=== PATIENT | male | born 1950 | race Caucasian/White ===

== ENCOUNTER 2020-10-14 11:15 | Inpatient (IN) ==
[2020-10-14] MEDS ORDERED: SODIUM CHLORIDE 0.9% 1000ML 500 ML IV ONE (12:28)
--- NOTE | 2020-10-14 12:37 | Emergency Department Note ---
History of Present Illness General Chief complaint: Weakness Stated complaint: SOB Time Seen by Provider: 10/14/20 12:10 Source: patient History of Present Illness Provider complaint: Weakness and shortness of breath Onset (ago): month(s) Location: chest, upper extremity and lower extremity Severity: severe Pain Consistency: + constant (Now constant) and + intermittent Maximum Pain Intensity: 0 Quality: + other (Short of breath) Relieved By: + rest Exacerbated By: + other (Any slight exertion) Associated symptoms: + nausea/vomiting (After taking doxycycline) and + shortness of breath; no chest pain, no cough and no fever/chills 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 The patient states he normally walks 4 miles a day but starting in February of last year he had to take brief breaks while he was walking. Initially the brace for less than a minute but progressively became longer. He states in August his symptoms got worse and he thought that it was due to allergies. He was recently placed on doxycycline by an urgent care center but the doxycycline made him throw up and so he stopped taking it. He has been having diarrhea for the past 2 days if he eats or drinks anything so he has not been eating or drinking anything in the past 2 days. He states that 2 weeks ago his dyspnea got extremely worse. Just walking to the mailbox made him extremely winded and he stated that he felt like his muscles in his legs were building up with lactic acid. He denies any swelling to the legs or any history of PE. He is concerned he has amyloidosis of the heart as his sister had it. He denies any type of chest discomfort or pain. He has had no cough or cold symptoms, fever, abdominal pain or black or bloody stools. Once his hemoglobin came back later I asked him again and he stated that his stools are dark but they have been for years and he attributed it to his diet. He does state that 2 days ago he was extremely nauseated and thinks he might of had a syncopal episode. He denies any injuries from the fall. He was sweaty and weak at the time but did not seek help. Home Medications Medication Instructions Recorded Confirmed Type No Known Home Medications 10/14/20 10/14/20 History Allergies Allergy/AdvReac Type Severity Reaction Status Date / Time amoxicillin Allergy Gastrointestinal Unverified 10/14/20 12:19 Upset doxycycline Allergy Nausea Unverified 10/14/20 12:19 Penicillins Allergy Verified 07/24/09 03:31 Past Med/Surg History Medical History Seasonal allergies Social History Smoking Status: Former smoker Second Hand Exposure: No; Do You Dip or Chew Tobacco: No; Tobacco Cessation Education Requested by Patient: No Hx Substance Use: No Preferred Language: Bel[employer]ian [employer] Required: No Beliefs That Will Affect Care: None Current Living Situation: Alone Other Information That Helps Us Care for You: No Feels Safe at Home: Yes Safety Concerns: Feels Safe At This Time Assistive Devices: None Review of Systems See HPI for pertinent positives & negatives. and A total of 10 systems reviewed and were otherwise negative Physical Exam Vital Signs Vital Signs - 24 hr 10/14/20 11:19 10/14/20 11:24 10/14/20 11:52 Temperature 37.0 C Temperature Source Temporal Artery Scan Oral Pulse Rate 97 H Pulse Rate from SpO2 Sensor Pulse Rhythm Regular Pulse Strength Normal Respiratory Rate 16 Respiratory Effort / Characteristics Non-Labored Non-Labored Respiratory Depth Normal Normal Respiratory Pattern Regular Tachypnea Blood Pressure 135/76 Blood Pressure Mean 95 Blood Pressure Position Sitting Pulse Oximetry 96 Oxygen Delivery Method Room Air Room Air Room Air Sepsis Recent Fever Within 48 Hours No Sepsis New/Unexplained Change in Mental Status N/A Sepsis Action Taken by Nursing No Action Required 10/14/20 12:00 10/14/20 12:19 10/14/20 12:30 Temperature Temperature Source Pulse Rate 87 94 H 88 Pulse Rate from SpO2 Sensor 87 91 H 89 Pulse Rhythm Pulse Strength Respiratory Rate 16 22 23 Respiratory Effort / Characteristics Respiratory Depth Respiratory Pattern Blood Pressure 116/70 121/76 Blood Pressure Mean 85 91 Blood Pressure Position Pulse Oximetry 98 97 97 Oxygen Delivery Method Sepsis Recent Fever Within 48 Hours Sepsis New/Unexplained Change in Mental Status Sepsis Action Taken by Nursing 10/14/20 12:31 10/14/20 13:00 10/14/20 13:01 Temperature Temperature Source Pulse Rate 82 81 85 Pulse Rate from SpO2 Sensor 80 87 83 Pulse Rhythm Pulse Strength Respiratory Rate 17 17 18 Respiratory Effort / Characteristics Respiratory Depth Respiratory Pattern Blood Pressure 110/77 Blood Pressure Mean 88 Blood Pressure Position Pulse Oximetry 97 97 98 Oxygen Delivery Method Sepsis Recent Fever Within 48 Hours Sepsis New/Unexplained Change in Mental Status Sepsis Action Taken by Nursing 10/14/20 13:31 10/14/20 14:00 10/14/20 14:01 Temperature Temperature Source Pulse Rate 84 82 89 Pulse Rate from SpO2 Sensor 80 88 Pulse Rhythm Pulse Strength Respiratory Rate 14 19 23 Respiratory Effort / Characteristics Respiratory Depth Respiratory Pattern Blood Pressure 93/72 L Blood Pressure Mean 79 Blood Pressure Position Pulse Oximetry 94 95 Oxygen Delivery Method Sepsis Recent Fever Within 48 Hours Sepsis New/Unexplained Change in Mental Status Sepsis Action Taken by Nursing 10/14/20 14:22 Temperature 37.2 C Temperature Source Oral Pulse Rate 93 H Pulse Rate from SpO2 Sensor Pulse Rhythm Regular Pulse Strength Respiratory Rate 18 Respiratory Effort / Characteristics Respiratory Depth Respiratory Pattern Blood Pressure 145/95 H Blood Pressure Mean 111 Blood Pressure Position Pulse Oximetry 94 Oxygen Delivery Method Sepsis Recent Fever Within 48 Hours Sepsis New/Unexplained Change in Mental Status Sepsis Action Taken by Nursing Constitutional: Vital signs reviewed. Eyes: Pupils are equal round reactive to light. Conjunctiva are noninjected. ENT: Pharynx is clear without erythema or exudate. Mucous membranes are moist. Neck supple without meningeal signs. Respiratory: Clear to auscultation bilaterally. Breath sounds are equal bilater ally. Cardiovascular: Regular rate and rhythm. Early systolic murmur best heard at the apex. GI: Soft, nondistended and nontender. Bowel sounds are present. Musculoskeletal: No peripheral edema. No lower extremity tenderness. Integumentary: No cyanosis. or jaundice. Neurological: The patient is awake and alert. No focal deficits. Psychiatric: Anxious. Course Administered Medications Pantoprazole Sodium 40 mg/ (Dextrose) 100 mls @ 20 mls/hr IV Q5H HOPE Stop: 11/13/20 13:59 Last Admin: 10/14/20 14:05 Dose: 8 mg/hr, 20 mls/hr Documented by: [id number] Discontinued Medications Sodium Chloride (Nss 1000ml) 500 mls @ 999 mls/hr IV .Q31M ONE Stop: 10/14/20 12:58 Last Infusion: 10/14/20 13:07 Dose: 0 mls/hr Documented by: [id number] Admin: 10/14/20 12:36 Dose: 999 mls/hr Documented by: [id number] Pantoprazole Sodium 80 mg/ (Dextrose) 120 mls @ 400 mls/hr IV ONE ONE Stop: 10/14/20 14:02 Last Infusion: 10/14/20 14:23 Dose: 0 mls/hr Documented by: [id number] Admin: 10/14/20 14:05 Dose: 400 mls/hr Documented by: [id number] Critical Care Time Critical Care Time: Yes Total Critical Care Time: 45 I have personally spent approximately 45 minutes of critical care time in the direct management of this patient. This includes bedside care, interpretation of diagnostic studies, and testing, discussion with consultants, patient, and family members, and other required patient management activities. These minutes are in excess of all separately billable procedures. Medical Decision Making Differential Diagnosis NSTEMI, CHF, valvular heart disease, pulmonary embolism, anemia, metabolic derangement Medical Records Attestation: I reviewed the patient's medical records. I did perform a limited focused review of portions of the patient's old chart on the electronic medical record. The patient has had no recent pertinent visits to this hospital. Home Medications Current Medication List: was personally reviewed by me Laboratory Data Attestation: I reviewed the patient's lab results. Result diagrams: 10/14/20 11:45 10/14/20 11:45 Lab Results 10/14/20 10/14/20 10/14/20 Range/Units 11:45 11:45 11:45 WBC 12.61 H (4.8-10.8) K/uL RBC 2.46 L (4.7-6.1) M/uL Hgb 5.3 L* (14.0-18.0) g/dL Hct 17.9 L* (42-52) % MCV 72.8 L (80-100) fL MCH 21.5 L (25-34) pg MCHC 29.6 L (32-36) g/dL RDW Std Deviation 44.9 (36.4-46.3) fL RDW Coeff of Viviana 16.7 H (11.5-14.5) % Plt Count 361 (130-400) K/uL MPV 10.6 H (7.4-10.4) fL Immature Gran % (Auto) 0.2 % Neut % (Auto) 83.0 % Lymph % (Auto) 7.5 % Brule % (Auto) 8.8 % Eos % (Auto) 0.3 % Baso % (Auto) 0.2 % Reticulocyte % (Auto) (0.5-2.0) % Neut # (Auto) 10.48 H (1.4-6.5) K/uL Lymph # (Auto) 0.94 L (1.2-3.4) K/uL Brule # (Auto) 1.11 H (0.11-0.59) K/uL Eos # (Auto) 0.04 (0-0.5) K/uL Baso # (Auto) 0.02 (0-0.2) K/uL Reticulocyte # (0.02-0.10) 10^6/uL Immature Gran # (Auto) 0.02 (0.00-0.02) K/uL Polychromasia 1+ Hypochromasia Present Microcytosis Present Ovalocytes 1+ Peripher Smr Path Cons PT 10.8 (9.0-12.0) Seconds INR 1.1 (0.9-1.1) APTT 22.0 (21.0-31.0) Seconds PTT Ratio 0.8 Sodium 136 (136-145) mmol/L Potassium 4.2 (3.5-5.1) mmol/L Chloride 105 (98-107) mmol/L Carbon Dioxide 21 (21-32) mmol/L Anion Gap 9.0 (3-11) BUN 34 H (7-18) mg/dl Creatinine 1.31 (0.6-1.4) mg/dl Est Cr Clr Drug Dosing 52.6 ml/min Est GFR ( Amer) 62.6 Est GFR (Non-Af Amer) 54.0 BUN/Creatinine Ratio 25.6 H (10-20) Glucose 138 H (70-99) mg/dl Calcium 9.3 (8.5-10.1) mg/dl Magnesium 2.5 H (1.8-2.4) mg/dl Iron (35-175) mcg/dl Transferrin (200-360) mg/dl Transferrin % Sat (20-50) % Ferritin (8-388) ng/ml Total Bilirubin 1.0 (0.2-1) mg/dl AST 35 (15-37) U/L ALT 60 (12-78) U/L Alkaline Phosphatase 84 (45-117) U/L Troponin I 0.597 H* (0-0.045) ng/ml Total Protein 7.1 (6.4-8.2) gm/dl Albumin 3.5 (3.4-5.0) gm/dl Globulin 3.6 (2.5-4.0) gm/dl Albumin/Globulin Ratio 1.0 (0.9-2) Vitamin B12 (193-986) pg/ml Folate (>5.38) ng/ml COVID-19 Eval Order SARS-CoV-2, RNA, NAAT (NEGATIVE) Blood Type Blood Type Recheck Antibody Screen Crossmatch 10/14/20 10/14/20 10/14/20 Range/Units 13:05 13:05 13:09 WBC (4.8-10.8) K/uL RBC (4.7-6.1) M/uL Hgb (14.0-18.0) g/dL Hct (42-52) % MCV (80-100) fL MCH (25-34) pg MCHC (32-36) g/dL RDW Std Deviation (36.4-46.3) fL RDW Coeff of Viviana (11.5-14.5) % Plt Count (130-400) K/uL MPV (7.4-10.4) fL Immature Gran % (Auto) % Neut % (Auto) % Lymph % (Auto) % Brule % (Auto) % Eos % (Auto) % Baso % (Auto) % Reticulocyte % (Auto) (0.5-2.0) % Neut # (Auto) (1.4-6.5) K/uL Lymph # (Auto) (1.2-3.4) K/uL Brule # (Auto) (0.11-0.59) K/uL Eos # (Auto) (0-0.5) K/uL Baso # (Auto) (0-0.2) K/uL Reticulocyte # (0.02-0.10) 10^6/uL Immature Gran # (Auto) (0.00-0.02) K/uL Polychromasia Hypochromasia Microcytosis Ovalocytes Peripher Smr Path Cons PT (9.0-12.0) Seconds INR (0.9-1.1) APTT (21.0-31.0) Seconds PTT Ratio Sodium (136-145) mmol/L Potassium (3.5-5.1) mmol/L Chloride (98-107) mmol/L Carbon Dioxide (21-32) mmol/L Anion Gap (3-11) BUN (7-18) mg/dl Creatinine (0.6-1.4) mg/dl Est Cr Clr Drug Dosing ml/min Est GFR ( Amer) Est GFR (Non-Af Amer) BUN/Creatinine Ratio (10-20) Glucose (70-99) mg/dl Calcium (8.5-10.1) mg/dl Magnesium (1.8-2.4) mg/dl Iron (35-175) mcg/dl Transferrin (200-360) mg/dl Transferrin % Sat (20-50) % Ferritin (8-388) ng/ml Total Bilirubin (0.2-1) mg/dl AST (15-37) U/L ALT (12-78) U/L Alkaline Phosphatase (45-117) U/L Troponin I (0-0.045) ng/ml Total Protein (6.4-8.2) gm/dl Albumin (3.4-5.0) gm/dl Globulin (2.5-4.0) gm/dl Albumin/Globulin Ratio (0.9-2) Vitamin B12 (193-986) pg/ml Folate (>5.38) ng/ml COVID-19 Eval Order Covid[address] [facility] SARS-CoV-2, RNA, NAAT NEGATIVE (NEGATIVE) Blood Type O Positive Blood Type Recheck Antibody Screen NEGATIVE Crossmatch See Detail 10/14/20 10/14/20 10/14/20 Range/Units 13:33 13:33 13:33 WBC (4.8-10.8) K/uL RBC (4.7-6.1) M/uL Hgb (14.0-18.0) g/dL Hct (42-52) % MCV (80-100) fL MCH (25-34) pg MCHC (32-36) g/dL RDW Std Deviation (36.4-46.3) fL RDW Coeff of Viviana (11.5-14.5) % Plt Count (130-400) K/uL MPV (7.4-10.4) fL Immature Gran % (Auto) % Neut % (Auto) % Lymph % (Auto) % Brule % (Auto) % Eos % (Auto) % Baso % (Auto) % Reticulocyte % (Auto) 3.9 H (0.5-2.0) % Neut # (Auto) (1.4-6.5) K/uL Lymph # (Auto) (1.2-3.4) K/uL Brule # (Auto) (0.11-0.59) K/uL Eos # (Auto) (0-0.5) K/uL Baso # (Auto) (0-0.2) K/uL Reticulocyte # 0.09 (0.02-0.10) 10^6/uL Immature Gran # (Auto) (0.00-0.02) K/uL Polychromasia Hypochromasia Microcytosis Ovalocytes Peripher Smr Path Cons PT (9.0-12.0) Seconds INR (0.9-1.1) APTT (21.0-31.0) Seconds PTT Ratio Sodium (136-145) mmol/L Potassium (3.5-5.1) mmol/L Chloride (98-107) mmol/L Carbon Dioxide (21-32) mmol/L Anion Gap (3-11) BUN (7-18) mg/dl Creatinine (0.6-1.4) mg/dl Est Cr Clr Drug Dosing ml/min Est GFR ( Amer) Est GFR (Non-Af Amer) BUN/Creatinine Ratio (10-20) Glucose (70-99) mg/dl Calcium (8.5-10.1) mg/dl Magnesium (1.8-2.4) mg/dl Iron 10 L (35-175) mcg/dl Transferrin 303 (200-360) mg/dl Transferrin % Sat 2 L (20-50) % Ferritin 8.7 (8-388) ng/ml Total Bilirubin (0.2-1) mg/dl AST (15-37) U/L ALT (12-78) U/L Alkaline Phosphatase (45-117) U/L Troponin I (0-0.045) ng/ml Total Protein (6.4-8.2) gm/dl Albumin (3.4-5.0) gm/dl Globulin (2.5-4.0) gm/dl Albumin/Globulin Ratio (0.9-2) Vitamin B12 (193-986) pg/ml Folate (>5.38) ng/ml COVID-19 Eval Order SARS-CoV-2, RNA, NAAT (NEGATIVE) Blood Type Blood Type Recheck O Positive Antibody Screen Crossmatch 10/14/20 Range/Units 13:33 WBC (4.8-10.8) K/uL RBC (4.7-6.1) M/uL Hgb (14.0-18.0) g/dL Hct (42-52) % MCV (80-100) fL MCH (25-34) pg MCHC (32-36) g/dL RDW Std Deviation (36.4-46.3) fL RDW Coeff of Viviana (11.5-14.5) % Plt Count (130-400) K/uL MPV (7.4-10.4) fL Immature Gran % (Auto) % Neut % (Auto) % Lymph % (Auto) % Brule % (Auto) % Eos % (Auto) % Baso % (Auto) % Reticulocyte % (Auto) (0.5-2.0) % Neut # (Auto) (1.4-6.5) K/uL Lymph # (Auto) (1.2-3.4) K/uL Brule # (Auto) (0.11-0.59) K/uL Eos # (Auto) (0-0.5) K/uL Baso # (Auto) (0-0.2) K/uL Reticulocyte # (0.02-0.10) 10^6/uL Immature Gran # (Auto) (0.00-0.02) K/uL Polychromasia Hypochromasia Microcytosis Ovalocytes Peripher Smr Path Cons PT (9.0-12.0) Seconds INR (0.9-1.1) APTT (21.0-31.0) Seconds PTT Ratio Sodium (136-145) mmol/L Potassium (3.5-5.1) mmol/L Chloride (98-107) mmol/L Carbon Dioxide (21-32) mmol/L Anion Gap (3-11) BUN (7-18) mg/dl Creatinine (0.6-1.4) mg/dl Est Cr Clr Drug Dosing ml/min Est GFR ( Amer) Est GFR (Non-Af Amer) BUN/Creatinine Ratio (10-20) Glucose (70-99) mg/dl Calcium (8.5-10.1) mg/dl Magnesium (1.8-2.4) mg/dl Iron (35-175) mcg/dl Transferrin (200-360) mg/dl Transferrin % Sat (20-50) % Ferritin (8-388) ng/ml Total Bilirubin (0.2-1) mg/dl AST (15-37) U/L ALT (12-78) U/L Alkaline Phosphatase (45-117) U/L Troponin I (0-0.045) ng/ml Total Protein (6.4-8.2) gm/dl Albumin (3.4-5.0) gm/dl Globulin (2.5-4.0) gm/dl Albumin/Globulin Ratio (0.9-2) Vitamin B12 465 (193-986) pg/ml Folate > 20.00 (>5.38) ng/ml COVID-19 Eval Order SARS-CoV-2, RNA, NAAT (NEGATIVE) Blood Type Blood Type Recheck Antibody Screen Crossmatch Imaging Data Radiologist's Impression: Chest X-Ray 10/14/20 12:27 XR chest 1V portable CLINICAL HISTORY: Dyspnea COMPARISON STUDY: No previous studies for comparison. FINDINGS: The heart is mildly enlarged. There is no failure. There is no focal pulmonary consolidation. There are no pleural effusions. There is an old left clavicular fracture.[ IMPRESSION: Mild cardiomegaly. No acute findings. ACT 112: Negative or not required by law. Electronically signed by: Milan Collazo M.D. 10/14/2020 12:[address] 10/14/20 13:[address] DOSE: 729.78 mGycm HISTORY: Dizziness. fall eval for bleed TECHNIQUE: Multiaxial CT images of the head were performed without the use of intravenous contrast. Automated exposure control was utilized for this study. A dose lowering technique was utilized adhering to the principles of ALARA. Comparison: None. Findings: The paranasal sinuses and mastoid air cells are clear. The calvarium and skull base are intact. The ventricles and sulci are within normal limits. There is no mass, hematoma, midline shift, or acute infarct. Impression: No acute intracranial abnormality. ACT 112: Negative or not required by law. Electronically signed by: Lázaro Carroll M.D. 10/14/2020 1:44 PM ECG Data Attestation: I personally reviewed and interpreted this ECG as follows: Indication: + SOB/dyspnea Rate (beats per minute): 101 Rhythm: + sinus tachycardia ECG ST segments: + ST depression (Anterolateral, high lateral and inferior) and + ST elevation (AVR) ECG Findings: + PVCs Additional Comments: Repeat twelve-lead EKG per my interpretation performed at [facility] 2020 12:28 PM demonstrates normal sinus rhythm at a rate of 80 bpm. There is improvement of his ST depressions but they are still present in leads I, 2, aVF, V3 to V6. There is LVH. No PVCs. Head Trauma GCS Score: 15 MDM Narrative I did evaluate the patient as noted above. The patient is presenting with severe dyspnea on exertion starting approximately a week ago. He has no chest discomfort. He did also have a syncopal episode 2 days ago and assumes that he hit his head although denies any headache. IV access was established. I did place an order for continuous cardiac monitoring. The monitor showed normal sinus rhythm at a rate of 98 bpm. I did order and personally review the patient's 12-lead EKG as described above. He has sinus tachycardia with significant ST depressions as described above. A repeat twelve-lead EKG was obtained which showed improvement of his depressions but they were still present. I did discuss the case with Dr. Vail of cardiology and ordered a stat bedside echocardiogram. The echocardiogram was performed and did not show any regional wall motion abnormalities. I did order and personally reviewed the images of the patient's chest x-ray as described above. He has mild cardiomegaly. I did order and review the patient's blood work as noted in the electronic medical record. He has a white count of 12.6. He has severe anemia with a hemoglobin of 5.3. Platelet count is 361. I did perform a rectal examination which showed guaiac negative brown stool. Electrolytes are unremarkable. Glucose is elevated at 138. Troponin is elevated at 0.6. I did order a CT of the head. I did review the images myself as well as the radiology report as described above. There is no evidence of acute intracranial hemorrhage. I did discuss the test results with the patient. I did reexamine him multiple times. He was seen by Dr. Vail of cardiology here. I did transfuse the patient 2 units of packed RBCs after obtaining informed consent. He will be admitted for further care and evaluation. Impression & Plan Acute non-ST elevation myocardial infarction (NSTEMI), Severe anemia Discharge Plan Visit Data Chief Complaint: Weakness Stated Complaint: SOB ED Provider: Shin Duke Discharge Problem: Acute non-ST elevation myocardial infarction (NSTEMI), Severe anemia Discharge Instructions Interventions: ED Discharge Assessment Last Done: 10/14/20 15:15
[2020-10-14 12:45] LABS: Hematocrit (blood only) 17.9 % (42-52); Hemoglobin 5.3 g/dL (14.0-18.0); Mean Corpuscular Hemoglobin 21.5 pg (25-34); Mean Corpuscular Hgb Conc 29.6 g/dL (32-36); Mean Corpuscular Volume 72.8 fL (80-100); Mean Platelet Volume 10.6 fL (7.4-10.4); Platelet Count 361 K/uL (130-400); RDW Coefficient of Variation 16.7 % (11.5-14.5); RDW Standard Deviation 44.9 fL (36.4-46.3); Red Blood Count 2.46 M/uL (4.7-6.1); White Blood Count 12.61 K/uL (4.8-10.8)
[2020-10-14 12:48] LABS: Albumin Level 3.5 gm/dl (3.4-5.0); BUN Creatinine Ratio 25.6 (10-20); Calcium 9.3 mg/dl (8.5-10.1); Creatinine Clr Calc Pharmacy 52.6 ml/min; Est GFR (African American) 62.6; Magnesium 2.5 mg/dl (1.8-2.4); Potassium 4.2 mmol/L (3.5-5.1)
--- NOTE | 2020-10-14 12:50 | XRay Report ---
XR chest 1V portable CLINICAL HISTORY: Dyspnea COMPARISON STUDY: No previous studies for comparison. FINDINGS: The heart is mildly enlarged. There is no failure. There is no focal pulmonary consolidatio n. There are no pleural effusions. There is an old left clavicular fracture.[ IMPRESSION: Mild cardiomegaly. No acute findings. ACT 112: Negative or not required by law. Electronically signed by: Milan Collazo M.D. 10/14/2020 12:49 PM
[2020-10-14 12:53] LABS: INR 1.1 (0.9-1.1); Partial Thromboplastin Ratio 0.8; Prothrombin Time 10.8 Seconds (9.0-12.0)
[2020-10-14] MEDS ORDERED: SODIUM CHLORIDE 0.9% 250 ML IV PRN ×3 (12:55→17:21)
[2020-10-14 12:57] LABS: Globulin 3.6 gm/dl (2.5-4.0); Total Protein 7.1 gm/dl (6.4-8.2); Troponin I 0.597 ng/ml (0-0.045)
[2020-10-14 13:03] LABS: Basophils # (auto) 0.02 K/uL (0-0.2); Basophils % (auto) 0.2 %; Eosinophils # (auto) 0.04 K/uL (0-0.5); Eosinophils % (auto) 0.3 %; Hypochromasia Present; Immature Granulocytes # (auto) 0.02 K/uL (0.00-0.02); Immature Granulocytes % (auto) 0.2 %; Lymphocytes # (auto) 0.94 K/uL (1.2-3.4); Lymphocytes % (auto) 7.5 %; Microcytosis Present; Monocytes # (auto) 1.11 K/uL (0.11-0.59); Monocytes % (auto) 8.8 %; Neutrophils # (auto) 10.48 K/uL (1.4-6.5); Ovalocytes 1+; Polychromasia 1+
--- NOTE | 2020-10-14 13:13 | History & Physical Report ---
Date of Service October 14, 2020 Assessment & Plan (1) Microcytic anemia: Despite FOB -ve in ER, patient having black stools therefore suspect GI bleed Start Pantoprazole IV bolus and drip Transfuse 2 units packed RBCs Repeat H&H q6h. Aim Hgb > 8 Anemia workup with reticulocyte count, iron studies, B12, folate Given history of myeloma with his sister although other cell lines appear normal will send workup for this. (2) Aortic stenosis: Stat TTE performed in ER Severe noted on echocardiogram and exam likely contributing towards longer standing shortness of breath for the last [address] Vail to refer patient to cardiology closer to his home. If still short of breath after blood transfusions consider inpatient referral. (3) Elevated troponin: Suspect demand ischemia in setting of anemia and aortic stenosis. LVEF normal without wall motion abnormalities suggestive of ACS. Will continue to trend Admission and Anticipated Discharge Date Admission Date: October 14, 2020 History of Present Illness Chief Complaint: Shortness of breath Primary Care Provider: NO PCP Gaetano Vinson is a 70 year old male who presents to the ER due to shortness of breath. With hindsight he feels he has been getting more short of breath on exertion for the past seven months. He is usually very active walking every day but has needed to take more more breaks during his walks. 2 weeks ago he stopped doing his 4 mile walk altogether due to shortness of breath and has had a rapid decline since then. He denies any chest pain. He does have presyncope but no syncopal episodes. No palpitations, claudication, orthopnea or PND. No fevers, chills, cough, URI symptoms. He was seen at [facility] 5 days ago and felt his symptoms were sinus related and he was started on doxycycline which made him nauseous so he stopped taking it. No hematemesis or vomiting. In the ER Hemoglobin was notably low at 5.3 (no prior available). 2 units blood transfusion ordered. He does report black stools but no worse than usual in the last 2 weeks and previously put this down to his diet. He does report nausea and vomiting has not had much to eat in the last 2 days after starting doxycycline on Monday due to his shortness of breath and concern for sinusitis by [facility]. He does not have a PCP and never had a colonoscopy. He denies any NSAID use. He does have a significant history fo mild reflux which he manages easily by not eating close to when he goes to bed. He does have a significant family history of his sister with multiple myeloma. Additionally in the ER his troponin was 0.597. EKG with marked ST depressions in lateral leads which appears to be dynamic. Murmur noted on exam and stat TTE ordered by ER. He was referred to medicine for admission and ongoing management of NSTEMI/anemia. Allergies Allergy/AdvReac Type Severity Reaction Status Date / Time amoxicillin Allergy Gastrointestinal Unverified 10/14/20 12:19 Upset doxycycline Allergy Nausea Unverified 10/14/20 12:19 Penicillins Allergy Verified 07/24/09 03:31 Home Medications Medication Instructions Recorded Confirmed Type No Known Home Medications 10/14/20 10/14/20 History Past Med/Surg History Medical History Seasonal allergies Social History Smoking Status: Former smoker Second Hand Exposure: No; Do You Dip or Chew Tobacco: No; Tobacco Cessation Education Requested by Patient: No Hx Substance Use: No Preferred Language: Yakut Peanut Grader Required: No Beliefs That Will Affect Care: None Current Living Situation: Alone Other Information That Helps Us Care for You: No Feels Safe at Home: Yes Safety Concerns: Feels Safe At This Time Assistive Devices: None Review of Systems Review of Systems: All systems reviewed & are unremarkable except as noted in HPI & below Physical Exam Constitutional: WD/WN, vitals as above Eyes: + conjunctival abnormality (pale) and PERRL Respiratory: normal respiratory effort, lungs clear to auscultation Cardiovascular: Rate/Rhythm: regular rate and regular rhythm Heart Sounds: + murmur (5/6 loudest LUSB ejection systolic) Vessels: no JVD Extremities: normal capillary refill and + pedal edema (trace pre-tibial); no calf tenderness Gastrointestinal (Abdomen): normal bowel sounds, soft, nontender, no hepatosplenomegaly Musculoskeletal: no cyanosis or clubbing, extremities motor strength 5/5 Skin: no rashes, warm and dry Neurologic: moves all extremities and awake; not confused Psychiatric: A+Ox3, euthymic affect Genitourinary: no CVA tenderness Results & Data Results & Data ([facility]) Vital Signs (Past 12 Hours) Vital Signs Temp Pulse Resp BP Pulse Ox 10/14/20 12:31 82 17 97 10/14/20 12:30 88 23 121/76 97 10/14/20 12:19 94 H 22 97 10/14/20 12:00 87 16 116/70 98 10/14/20 11:19 37.0 C 97 H 16 135/[address] NONCONTRAST Impression: No acute intracranial abnormality. XR chest 1V portable IMPRESSION: Mild cardiomegaly. No acute findings. Medications Administered ER Medications given: NSS 500ml bolus ECG Indication: SOB/dyspnea Rate (beats per minute): 101 Rhythm: normal sinus Findings: + ST depression (Lateral) Comparison ECG Date: no prior available Code Status & VTE Plan Code Status Full PG Care Time/CCT Total # of Minutes Spent Total Time Spent with Patient: Total time spent is greater than 50% in coordination of care (as documented) at patient's floor/unit and/or counseling patient: Coding Level of Care Code 08085 Initial Inpt Care Lvl 3 Diagnoses Microcytic anemia D50.9 Aortic stenosis I35.0 Cardiac valve disease etiology: nonrheumatic Elevated troponin R77.8 (1) Aortic stenosis Cardiac valve disease etiology: nonrheumatic Qualified Code(s): I35.0 - Nonrheumatic aortic (valve) stenosis
[2020-10-14] MEDS ORDERED: PANTOPRAZOLE BOLUS/DRIP 1 EA IV STA (13:25)
[2020-10-14] MEDS ORDERED: PANTOprazole 80 MG in DEXTROSE 5% 100 ML IV ONE (13:45)
--- NOTE | 2020-10-14 13:46 | CT Scan Report ---
HEAD CT NONCONTRAST CT DOSE: 729.78 mGycm HISTORY: Dizziness. fall eval for bleed TECHNIQUE: Multiaxial CT images of the head were performed without the use of intravenous contrast. A utomated exposure control was utilized for this study. A dose lowering technique was utilized adheri ng to the principles of ALARA. Comparison: None. Findings: The paranasal sinuses and mastoid air cells are clear. The calvarium and skull base are int act. The ventricles and sulci are within normal limits. There is no mass, hematoma, midline shift, or acute infarct. Impression: No acute intracranial abnormality. ACT 112: Negative or not required by law. Electronically signed by: Lázaro Carroll M.D. 10/14/2020 1:44 PM
[2020-10-14 13:54] LABS: Reticulocyte % 3.9 % (0.5-2.0); Reticulocytes # 0.09 10^6/uL (0.02-0.10)
[2020-10-14] MEDS: PANTOprazole 40 MG in DEXTROSE 5% 100 ML IV SCH ×3 (14:05→23:09)
[2020-10-14 14:16] LABS: Ferritin 8.7 ng/ml (8-388)
[2020-10-14 14:38] LABS: Folate (Folic Acid) > 20.00 ng/ml (>5.38); Vitamin B12 465 pg/ml (193-986)
--- NOTE | 2020-10-14 15:18 | XCELERA ---
[id number]
[2020-10-14] MEDS ORDERED: ACETAMINOPHEN 325 MG TAB PO PRN (16:17)
--- NOTE | 2020-10-14 16:26 | Electrocardiogram Report ---
Test Reason : Blood Pressure : / mmHG Vent. Rate : 080 BPM Atrial Rate : 080 BPM P-R Int : 154 ms QRS Dur : 106 ms QT Int : 402 ms P-R-T Axes : 050 030 078 degrees QTc Int : 463 ms Normal sinus rhythm Left ventricular hypertrophy with repolarization abnormality Abnormal ECG When compared with ECG of 14-OCT-2020 11:36, (unconfirmed) Aberrant conduction is no longer Present ST less depressed in Lateral leads Confirmed by Aj Vail ([id number]) on 10/14/2020 4:26:17 PM Referred By: REFERRED SELF Confirmed By:Aj Vail
[2020-10-14] MEDS: LACTATED RINGER'S 1,000 ML IV SCH (23:03)
[2020-10-15 01:08] LABS: Hematocrit (blood only) 21.2 % (42-52); Hemoglobin 6.6 g/dL (14.0-18.0)
[2020-10-15] MEDS ORDERED: SODIUM CHLORIDE 0.9% 250 ML IV PRN (01:23)
[2020-10-15] MEDS: PANTOprazole 40 MG in DEXTROSE 5% 100 ML IV SCH ×4 (03:23→21:00)
[2020-10-15 03:49] LABS: Appearance Urine Clear (Clear); Bilirubin Urine Negative (Negative); Blood Urine Negative (Negative); Color Urine Yellow; Glucose Urine UA Negative (Negative); Ketones Urine Trace (Negative); Leukocyte Esterase Urine Negative (Negative); Nitrite Urine Negative (Negative); Protein Urine Negative (Negative); Specific Gravity Urine 1.028 (1.000-1.030); Urobilinogen Urine Negative (Negative)
--- NOTE | 2020-10-15 09:47 | Gastrointestinal Consultation ---
Date of Consultation October 15, 2020 Assessment & Plan (1) Acute non-ST elevation myocardial infarction (NSTEMI): (2) Severe anemia: -Keep NPO -Continue Protonix gtt -EGD today for further evaluation of severe anemia -Continue to monitor H/H, transfusion per primary team -Further recommendations pending results of testing Supervising Physician Co-Signing Physician Notes I personally evaluated the patient and agree with the findings as documented by Key Herron, PAC Exam: abd: soft, nt, nd Proceed with EGD. risks/benefits and procedure discussed with patient, who agrees to proceed History of Present Illness Reason for Consultation: Patient is a 70 yo male with a history of aortic stenosis and seasonal allergies who presented to [facility] ED with complaints of progressive dyspnea on exertion. He notes that beginning on 09/30/20, he started feeling short of breath easily--noting that he could not walk and talk without stopping to catch his breath. Upon evaluation in the ED, he was noted to have a hemoglobin of 5.3. No baseline was available. H/H this AM was noted to be 6.6/21.2. Troponin has been elevated at 0.558 then subsequent recheck 0.597. He recently felt he had a sinus infection, went to [facility], and was given Doxycycline. This upset his stomach so he stopped taking it. He denies melena, hematochezia, or hematemesis. No recent GERD symptoms. He denies NSAID use. He notes he has never had a colonoscopy or EGD previously. No pertinent family history. Attending Physician: Gilmar Melissa, Allergies Allergy/AdvReac Type Severity Reaction Status Date / Time amoxicillin Allergy Gastrointestinal Unverified 10/14/20 12:19 Upset doxycycline Allergy Nausea Unverified 10/14/20 12:19 Penicillins Allergy Verified 07/24/09 03:31 Home Medications Medication Instructions Recorded Confirmed Type No Known Home Medications 10/14/20 10/14/20 History Patient History Medical History Seasonal allergies Social History Smoking Status: Former smoker Second Hand Exposure: No; Do You Dip or Chew Tobacco: No; Tobacco Cessation Education Requested by Patient: No Hx Substance Use: No Preferred Language: Ukrainian Triage Registered Nurse Required: No Beliefs That Will Affect Care: None Current Living Situation: Alone Other Information That Helps Us Care for You: No Feels Safe at Home: Yes Safety Concerns: Feels Safe At This Time Assistive Devices: None Review of Systems Constitutional: no fever and no chills Respiratory: no cough and no dyspnea Cardiovascular: no chest pain Gastrointestinal: no abdominal pain, no nausea and no melena Psychiatric: no problem reported Physical Exam Constitutional: well developed Neck: normal visual inspection Respiratory: normal respiratory effort Cardiovascular: Extremities: no edema Gastrointestinal (Abdomen): Inspection/Auscultation: abdomen normal to inspection Musculoskeletal: Head/Neck/Chest: normocephalic Psychiatric: A+Ox3, euthymic affect Results & Data ([facility]) Vital Signs (Past 12 Hours) Vital Signs Temp Pulse Pulse Resp BP BP Pulse Ox 10/15/20 07:26 58 L 10/15/20 07:01 36.8 C 55 L 55 L 16 112/74 112/74 96 10/15/20 06:10 36.8 C 56 L 18 114/70 97 10/15/20 05:13 36.6 C 58 L 18 106/67 97 10/15/20 05:10 36.7 C 58 L 20 109/71 98 10/15/20 04:55 36.7 C 60 16 112/74 97 10/15/20 04:39 36.8 C 59 L 18 114/77 97 10/15/20 04:18 37.1 C 61 18 111/69 91 10/15/20 03:20 37.0 C 63 20 114/74 96 10/15/20 02:20 36.7 C 65 18 108/68 97 10/15/20 02:05 37.7 C H 68 20 121/75 10/15/20 01:50 37.1 C 71 18 113/73 90 10/15/20 01:07 74 10/14/20 23:17 37.0 C 70 20 110/71 92 PG Care Time/CCT Total # of Minutes Spent Total Time Spent with Patient: Total time spent is greater than 50% in coordination of care (as documented) at patient's floor/unit and/or counseling patient: Coding Level of Care Code 23292 Initial Inpt Care Lvl 3 Diagnoses Acute non-ST elevation myocardial infarction (NSTEMI) I21.4 Severe anemia D64.9
[2020-10-15 09:59] LABS: Basophils # (auto) 0.03 K/uL (0-0.2); Basophils % (auto) 0.3 %; Eosinophils # (auto) 0.16 K/uL (0-0.5); Eosinophils % (auto) 1.8 %; Hemoglobin 8.7 g/dL (14.0-18.0); Immature Granulocytes # (auto) 0.02 K/uL (0.00-0.02); Immature Granulocytes % (auto) 0.2 %; Lymphocytes # (auto) 0.69 K/uL (1.2-3.4); Lymphocytes % (auto) 7.6 %; Mean Corpuscular Hemoglobin 24.9 pg (25-34); Mean Corpuscular Hgb Conc 32.2 g/dL (32-36); Mean Corpuscular Volume 77.1 fL (80-100); Mean Platelet Volume 10.4 fL (7.4-10.4); Monocytes # (auto) 0.86 K/uL (0.11-0.59); Monocytes % (auto) 9.5 %; Neutrophils # (auto) 7.27 K/uL (1.4-6.5); Neutrophils % (auto) 80.6 %; Nucleated RBC # (auto) 0.06 K/uL (0-0); Nucleated RBC % (auto) 0.6 %; Platelet Count 249 K/uL (130-400); RDW Coefficient of Variation 17.4 % (11.5-14.5); RDW Standard Deviation 49.5 fL (36.4-46.3); White Blood Count 9.03 K/uL (4.8-10.8)
--- NOTE | 2020-10-15 10:07 | Cardiology Consultation ---
Date of Consultation October 15, 2020 Assessment & Plan (1) Aortic stenosis, severe: -severe aortic stenosis noted on current echocardiogram. -we need to consider valve replacement surgery. -GI workup clearly takes priority. -he plans to move to [place] after this hospital admission. -will place him in touch with one of our prior colleagues, Dr. Purdy. (2) Elevated troponin: -likely a supply demand mismatch realizing his profound anemia, LVH, and severe aortic stenosis. -no need to pursue an ischemic workup at this time. (3) Severe anemia: -GI workup in progress. History of Present Illness Attending Physician: Gilmar Melissa DO History of Present Illness Mr. Vinson is a 70-year-old male admitted yesterday with symptomatic, profound anemia and severe aortic stenosis. This consultation was ordered to assistance cardiac management. The patient was in his usual state of health until the fall. The patient began to note some exertional dyspnea on his daily for mi walk. This continued to progress until approximately 2 weeks ago when the patient had to stop his daily walks due to dyspnea. He explains that he started circling the drain quickly over this time frame. The patient contacted me by telephone on the day prior to admission explaining his profound symptoms and is feeling that he was going to by the end of the week. I urged him to present to the emergency room for further care. On arrival to the emergency room yesterday, the patient's EKG noted significant and profound ST depression across the anterolateral leads. Dr. Duke requested a stat echocardiogram which revealed normal left ventricular systolic function, mild LVH, and severe aortic stenosis. The patient was transfused 2 units of blood while in the emergency room. Hospitalization was recommended. The patient does admit to black stools over several months. A GI evaluation has been ordered. Currently, patient is resting comfortably in bed without complaints. Past medical and surgical history 1. Left clavicular fracture Social history Single, lives alone. 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 No tobacco alcohol. Family history Sister from amyloidosis. No early coronary artery disease Review of systems A 10 point review systems was negative except that described above. Allergies Allergy/AdvReac Type Severity Reaction Status Date / Time amoxicillin Allergy Gastrointestinal Unverified 10/14/20 12:19 Upset doxycycline Allergy Nausea Unverified 10/14/20 12:19 Penicillins Allergy Verified 07/24/09 03:31 Home Medications Medication Instructions Recorded Confirmed Type No Known Home Medications 10/14/20 10/14/20 History Patient History Medical History (Updated 10/15/20 @ 13:14 by Breezy Resendiz PA-C) Aortic stenosis Seasonal allergies Social History Smoking Status: Former smoker Second Hand Exposure: No; Do You Dip or Chew Tobacco: No; Tobacco Cessation Education Requested by Patient: No Hx Substance Use: No Preferred Language: Lao Adoption Agent Required: No Beliefs That Will Affect Care: None Current Living Situation: Alone Other Information That Helps Us Care for You: No Feels Safe at Home: Yes Safety Concerns: Feels Safe At This Time Assistive Devices: None Physical Exam Physical Exam: In general this is a well-developed well-nourished but jaundiced male in no acute distress. HEENT exam is negative. Neck is supple with delayed and prolonged carotid upstrokes. No obvious transmitted murmur or bruits. Jugular venous pressure is flat at 90. There is no thyromegaly. Cardiovascular exam reveals a regular rhythm with a 2/6 crescendo decrescendo systolic murmur heard loudest at the base. S2 is not audible at the apex. Lungs are clear without rales, rhonchi or wheeze. Abdomen is soft and nontender without bruits. Extremities reveal intact radial artery pulses bilaterally. There is no peripheral edema. Results & Data ([facility]) Vital Signs (Past 12 Hours) Vital Signs Temp Pulse Pulse Resp BP BP Pulse Ox 10/15/20 07:26 58 L 10/15/20 07:01 36.8 C 55 L 55 L 16 112/74 112/74 96 10/15/20 06:10 36.8 C 56 L 18 114/70 97 10/15/20 05:13 36.6 C 58 L 18 106/67 97 10/15/20 05:10 36.7 C 58 L 20 109/71 98 10/15/20 04:55 36.7 C 60 16 112/74 97 10/15/20 04:39 36.8 C 59 L 18 114/77 97 10/15/20 04:18 37.1 C 61 18 111/69 91 10/15/20 03:20 37.0 C 63 20 114/74 96 10/15/20 02:20 36.7 C 65 18 108/68 97 10/15/20 02:05 37.7 C H 68 20 121/75 10/15/20 01:50 37.1 C 71 18 113/73 90 10/15/20 01:07 74 10/14/20 23:17 37.0 C 70 20 110/71 92 Laboratory Results CBC notes hemoglobin of 6.6, up from admission value of 5.3. Current hematocrit is 21.2 with a white count of 12.6 and a platelet count of [id number]. Electrolytes note a sodium of 136, potassium 4.2, chloride 105, bicarb 21, BUN 34, creatinine 1.3, and glucose of 138. Initial troponin was 0.597 with a follow-up value of 0.558. Diagnostic Findings EKG notes sinus rhythm and left ventricular hypertrophy with repolarization changes. Echocardiogram is described above. Chest x-ray notes cardiomegaly. PG Care Time/CCT Total # of Minutes Spent Total Time Spent with Patient: Total time spent is greater than 50% in coordination of care (as documented) at patient's floor/unit and/or counseling patient: Coding Level of Care Code 50493 Initial Inpt Care Lvl 3 Diagnoses Aortic stenosis, severe I35.0 Elevated troponin R77.8 Severe anemia D64.9
[2020-10-15 10:30] LABS: BUN Creatinine Ratio 26.4 (10-20); Calcium 8.8 mg/dl (8.5-10.1); Creatinine Clr Calc Pharmacy 76.6 ml/min; Est GFR (African American) 98.5; Potassium 3.9 mmol/L (3.5-5.1); Troponin I 0.358 ng/ml (0-0.045)
--- NOTE | 2020-10-15 10:34 | Anesthesiology Consultation ---
Date of Service October 15, 2020 History Surgery Operation Date: 10/15/20 17:15 Proposed Procedures p Esophagogastroduodenoscopy Dr. Teodoro Valerio MD Height/Weight Height: 5 ft 10 in Weight: 81.2 kg Allergies Allergy/AdvReac Type Severity Reaction Status Date / Time amoxicillin Allergy Gastrointestinal Unverified 10/14/20 12:19 Upset doxycycline Allergy Nausea Unverified 10/14/20 12:19 Penicillins Allergy Verified 07/24/09 03:31 Medications Home Medications Medication Instructions Recorded Confirmed Last Taken No Known Home Medications 10/14/20 10/14/20 Unknown Active Medications Generic Name Dose Route Start Last Admin Trade Name Freq PRN Reason Stop Dose Admin Acetaminophen 650 mg 10/14/20 16:17 10/14/20 19:30 Acetaminophen 325 Mg Tab PO 11/13/20 16:16 650 mg Q4H PRN Administration Pain or Fever Pantoprazole Sodium 40 mg/ 100 mls @ 20 mls/hr 10/14/20 14:00 10/15/20 08:43 Dextrose IV 11/13/20 13:59 8 mg/hr Q5H HOPE 20 mls/hr Administration 8 MG/HR Lactated Ringer's 1,000 mls @ 125 mls/hr 10/14/20 21:45 10/15/20 05:59 Lr IV 11/13/20 21:44 0 mls/hr .Q8H HOPE Infusion Past Medical History Medical History Seasonal allergies Social History Smoking Status: Former smoker Do You Dip or Chew Tobacco: No Alcohol type: beer alcohol intake frequency: a few times a month Hx Substance Use: No Physical Exam Vital Signs Last Vital Signs Temp 36.8 C 10/15/20 07:01 Pulse 58 L 10/15/20 07:26 Resp 16 10/15/20 07:01 BP 112/74 10/15/20 07:01 Pulse Ox 96 10/15/20 07:01 Testing Laboratory Results 10/15/20 09:42 10/15/20 09:42 PT 10.8 Seconds (9.0-12.0) 10/14/20 11:45 INR 1.1 (0.9-1.1) 10/14/20 11:45 APTT 22.0 Seconds (21.0-31.0) 10/14/20 11:45 Urine Color Yellow 10/15/20 01:47 Urine Appearance Clear (Clear) 10/15/20 01:47 Urine pH 5.0 (4.5-7.5) 10/15/20 01:47 Ur Specific [place] 1.028 (1.000-1.030) 10/15/20 01:47 Urine Protein Negative (Negative) 10/15/20 01:47 Urine Glucose (UA) Negative (Negative) 10/15/20 01:47 Urine Ketones Trace (Negative) H 10/15/20 01:47 Urine Nitrite Negative (Negative) 10/15/20 01:47 Ur Leukocyte Esterase Negative (Negative) 10/15/20 01:47 Blood Type O Positive 10/14/20 13:09 Antibody Screen NEGATIVE 10/14/20 13:09 Electrocardiogram Date: 10/14/20 Normal sinus rhythm Left ventricular hypertrophy with repolarization abnormality Abnormal ECG When compared with ECG of 14-OCT-2020 11:36, (unconfirmed) Aberrant conduction is no longer Present ST less depressed in Lateral leads Confirmed by Aj Vail ([id number]) on 10/14/2020 4:26:17 PM Echocardiogram Date: 10/14/20 EF: 55-60% Valvular Disease: + (sever) LVH
[2020-10-15] MEDS ORDERED: ONDANSETRON INJ 2 MG/ML 2 ML VIAL ONE (11:48)
[2020-10-15] MEDS ORDERED: LIDOCAINE HCL 2% 2 ML VIAL/AMP(20MG/ML) INFIL ONE (11:48)
[2020-10-15] MEDS ORDERED: ETOMIDATE 2 MG/ML 20 ML VIAL IV ONE (11:48)
[2020-10-15] MEDS ORDERED: PROPOFOL IV EMULSION 10 MG/ML 20 ML VIAL IV ONE (11:49)
--- NOTE | 2020-10-15 12:36 | GI REPORT ---
Patient Name: Gaetano Vinson Procedure Date: 10/15/2020 11:51 AM Date of : 1950 Admit Type: Inpatient Age: 70 Gender: Male Attending MD: Jaison Valerio MD Procedure: Upper GI endoscopy Providers: Jaison Valerio MD Referring MD: Gilmar Melissa Indications: Acute post hemorrhagic anemia Medicines: Monitored Anesthesia Care Complications: No immediate complications. Estimated blood loss: None. Estimated Blood Loss: Estimated blood loss: none. Procedure: Pre-Anesthesia Assessment: - Prior Anticoagulants: The patient has taken no previous anticoagulant or antiplatelet agents. - ASA Grade Assessment: II - A patient with mild systemic disease. After obtaining informed consent, the endoscope was passed under direct vision. Throughout the procedure, the patient's blood pressure, pulse, and oxygen saturations were monitored continuously. The Endoscope was introduced through the mouth, and advanced to the second part of duodenum. The upper GI endoscopy was accomplished without difficulty. The patient tolerated the procedure well. Findings: There were esophageal mucosal changes suggestive of short-segment Hernandez's esophagus present at the gastroesophageal junction. The maximum longitudinal extent of these mucosal changes was 1 cm in length. Mucosa was biopsied with a cold forceps for histology. One specimen bottle was sent to pathology. Estimated blood loss: none. Diffuse moderate inflammation characterized by erosions and erythema was found in the stomach. Biopsies were taken with a cold forceps for Helicobacter pylori testing. Estimated blood loss: none. One non-bleeding linear duodenal ulcer with no stigmata of bleeding was found in the duodenal bulb. The second portion of the duodenum was normal. 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 Biopsied. - Gastritis. Biopsied. - Non-bleeding duodenal ulcer with no stigmata of bleeding. - Normal second portion of the duodenum. Recommendation: - [facility] patient to [facility] care. - Advance diet as tolerated today. - Await pathology results. -protonix 40 mg BID for three months Jaison Valerio MD 10/15/2020 12:36:35 PM This report has been signed electronically. Note Initiated On: 10/15/2020 11:51 AM Number of Addenda: 0 I attest to the content of the Intraoperative Record and orders documented therein, exceptions below {[id number]}
--- NOTE | 2020-10-15 12:56 | Hospitalist Progress Note ---
Date of Service October 15, 2020 Assessment & Plan (1) Severe anemia: Mr. Vinson is a 70 year old male with a history of Severe Aortic Stenosis and Seasonal Allergies who was admitted yesterday with Severe Microcytic Hypochromic Anemia secondary to chronic GI Blood Loss. Patient has experienced melanotic stools for several months. He felt he was in his usual state of health up until the fall -- when he began to experience some exertional dyspnea on his daily 4 mile walk. This exertional dyspnea continued to worsen as the weeks went by. Then, approximately 2 weeks ago -- the patient had to stop his daily walks due to this dyspnea. He explains that he started circling the drain quickly over this time frame. The patient contacted Dr. Vail by phone on the day prior to admission explaining his profound symptoms and is feeling that he was going to by the end of the week. Dr. Vail advised him to go to the ER for further evaluation and treatment. Patient was noted to be severely anemic in the ER with a Hgb of 5.3 g/dl with microcytic and hypochromic RBC indices. The patient was transfused 2 units of blood while in the emergency room, and subsequently received 2 more units of PRBC's. His Hgb is up to 8.7 g/dl today. Patient was evaluated by [facility] and an EGD was done on 10/15/20 and showed short segment Hernandez's esophagus, gastritis, and a non-bleeding duodenal ulcer. -- Protonix 40 mg b.i.d. x 3 months. -- IV Venofer 300 mg daily x 2 days. -- Start oral iron supplement. -- Iron level 10 mcg/dl. -- Transferrin 303 mg/dl. -- Transferrin saturation 2%. -- Ferritin is low normal at 8.7 mg/ml. (2) GI bleed: -- Secondary to short segment Hernandez's esophagus, gastritis, and a non-bleeding duodenal ulcer. -- Protonix 40 mg b.i.d. x 3 months was recommended. -- Patient likely also has AVM's in his GI tract related to aortic stenosis. (3) Aortic stenosis, severe: -- Patient being referred to CT Surgery in the [facility] for AVR. -- Dr. Vail, [facility] is following this patient. (4) Elevated troponin: -- On presentation, the patient's EKG noted significant and profound ST depression across the anterolateral leads. -- Initial Troponin I was elevated at 0.597 ng/ml with subsequent values trending down at 0.558 and 0.358 ng/ml. -- Troponin I elevation is secondary to Demand Ischemia, this was not an ACS. -- Echocardiogram showed normal wall motion and normal LV systolic function. Admission and Anticipated Discharge Date Admission Date: October 14, 2020 Subjective Mr. Vinson is a 70 year old male with a history of Severe Aortic Stenosis and Seasonal Allergies who was admitted yesterday with Severe Microcytic Hypochromic Anemia secondary to chronic GI Blood Loss. Patient has experienced melanotic stools for several months. He felt he was in his usual state of health up until the fall -- when he began to experience some exertional dyspnea on his daily 4 mile walk. This exertional dyspnea continued to worsen as the weeks went by. Then, approximately 2 weeks ago -- the patient had to stop his daily walks due to this dyspnea. He explains that he started circling the drain quickly over this time frame. The patient contacted Dr. Vail by phone on the day prior to admission explaining his profound symptoms and is feeling that he was going to by the end of the week. Dr. Vail advised him to go to the ER for further evaluation and treatment. On arrival to the emergency room yesterday, the patient's EKG noted significant and profound ST depression across the anterolateral leads. The ER physician requested a stat Echocardiogram which revealed normal left ventricular systolic function, mild LVH, and severe aortic stenosis. Initial Troponin I was elevated at 0.597 ng/ml with subsequent values trending down at 0.558 and 0.358 ng/ml. Additionally patient was noted to be severely anemic with a Hgb of 5.3 g/dl with microcytic and hypochromic RBC indices. The patient was transfused 2 units of blood while in the emergency room, and subsequently received 2 more units of PRBC's. His Hgb is up to 8.7 g/dl today. Patient was evaluated by [facility] and an EGD was recommended. EGD 10/15/20: -- Esophageal mucosal changes suggestive of short-segment Hernandez's esophagus. Biopsied. -- Gastritis. Biopsied. -- Non-bleeding duodenal ulcer with no stigmata of bleeding. -- Normal second portion of the duodenum. Recommendations: -- [facility]. -- Advance diet as tolerated today. -- Await pathology results. -- Protonix 40 mg BID for three months. At the present time, he is feeling significantly better following his transfusions and now knowing the etiology of his symptoms, GI blood loss with a microcytic hypochromic anemia. he denies any abdominal pain, nausea, or vomiting. He denies any exertional chest pain now or at any time leading up to this hospitalization. He denies any syncope or near syncope. Review of Systems Review of Systems: All systems reviewed & are unremarkable except as noted in Subjective Physical Exam Physical Exam: GENERAL: Pale complexion, patient in no acute distress. HEENT: Head is atraumatic, normocephalic. EOM's intact. Facies symmetric. No perioral cyanosis. NECK: No JVD. JVP is at the level of the clavicle sitting upright. Carotid upstrokes are + 2 bilaterally. No bruits are noted. CHEST/LUNGS: Clear to auscultation throughout all lung menendez. No wheezes, rales, or crackles. CVS: S1 and S2 are regular with a grade 2/6 crescendo decrescendo basal systolic murmur heard best over the R 2nd ICS. PMI is nondisplaced. No lifts, heaves, or thrills. No abdominal aortic or renal bruits. ABDOMINAL EXAM: Bowel sounds are present. No masses, organomegaly, or tenderness. EXTREMITIES: No clubbing or cyanosis. No edema. Intact posterior tibial and radial pulses bilaterally. NEUROLOGIC EXAM: Patient is awake, alert, and oriented. Pleasant and cooperative. Answers questions appropriately. Speech is clear. Normal m ovement in all 4 extremities. Gait pattern is unremarkable. Results & Data Results & Data ([facility]) Vital Signs (Past 12 Hours) Vital Signs Temp Pulse Pulse Resp BP BP Pulse Ox 10/15/20 12:40 66 20 133/87 98 10/15/20 12:25 64 20 113/81 94 10/15/20 10:54 36.8 C 67 20 134/95 96 10/15/20 07:26 58 L 10/15/20 07:01 36.8 C 55 L 55 L 16 112/74 112/74 96 10/15/20 06:10 36.8 C 56 L 18 114/70 97 10/15/20 05:13 36.6 C 58 L 18 106/67 97 10/15/20 05:10 36.7 C 58 L 20 109/71 98 10/15/20 04:55 36.7 C 60 16 112/74 97 10/15/20 04:39 36.8 C 59 L 18 114/77 97 10/15/20 04:18 37.1 C 61 18 111/69 91 10/15/20 03:20 37.0 C 63 20 114/74 96 10/15/20 02:20 36.7 C 65 18 108/68 97 10/15/20 02:05 37.7 C H 68 20 121/75 10/15/20 01:50 37.1 C 71 18 113/73 90 10/15/20 01:07 74 Laboratory Results Laboratory Results - last 24 hr 10/14/20 10/14/20 10/14/20 11:45 13:05 13:05 WBC RBC Hgb Hct MCV MCH MCHC RDW Std Deviation RDW Coeff of Viviana Plt Count MPV Immature Gran % (Auto) 0.2 Neut % (Auto) 83.0 Lymph % (Auto) 7.5 [place] % (Auto) 8.8 Eos % (Auto) 0.3 Baso % (Auto) 0.2 Reticulocyte % (Auto) Neut # (Auto) 10.48 H Lymph # (Auto) 0.94 L [place] # (Auto) 1.11 H Eos # (Auto) 0.04 Baso # (Auto) 0.02 Reticulocyte # Immature Gran # (Auto) 0.02 Absolute Nucleated RBC Nucleated RBC % (auto) Polychromasia 1+ Hypochromasia Present Microcytosis Present Ovalocytes 1+ Peripher Smr Path Cons Sodium Potassium Chloride Carbon Dioxide Anion Gap BUN Creatinine Est Cr Clr Drug Dosing Est GFR ( Amer) Est GFR (Non-Af Amer) BUN/Creatinine Ratio Glucose Calcium Iron Transferrin Transferrin % Sat Ferritin Troponin I Total Protein (PEP) Albumin (PEP) Drolq-2-Gulwrbcrf Xgtfx-1-Earrsybzm Sfrl-8-Czvxxush Ofnd-6-Boddmhnl Gamma Globulins Monoclonal Peak 3 Ser Monoclonl Protein Ser Monoclonal Prot 2 PEP Interpretation Vitamin B12 Folate Urine Color Urine Appearance Urine pH Ur Specific [place] Urine Protein Urine Glucose (UA) Urine Ketones Urine Blood Urine Nitrite Urine Bilirubin Urine Urobilinogen Ur Leukocyte Esterase Serum Immunofixation Free [place] LC, Quant Free Lambda LC, Quant Free [place]/Lambda Ratio COVID-19 [facility] SARS-CoV-2, RNA, NAAT NEGATIVE Blood Type Blood Type Recheck Antibody Screen Crossmatch 10/14/20 10/14/20 10/14/20 13:09 13:33 13:33 WBC RBC Hgb Hct MCV MCH MCHC RDW Std Deviation RDW Coeff of Viviana Plt Count MPV Immature Gran % (Auto) Neut % (Auto) Lymph % (Auto) [place] % (Auto) Eos % (Auto) Baso % (Auto) Reticulocyte % (Auto) 3.9 H Neut # (Auto) Lymph # (Auto) [place] # (Auto) Eos # (Auto) Baso # (Auto) Reticulocyte # 0.09 Immature Gran # (Auto) Absolute Nucleated RBC Nucleated RBC % (auto) Polychromasia Hypochromasia Microcytosis Ovalocytes Peripher Smr Path Cons Sodium Potassium Chloride Carbon Dioxide Anion Gap BUN Creatinine Est Cr Clr Drug Dosing Est GFR ( Amer) Est GFR (Non-Af Amer) BUN/Creatinine Ratio Glucose Calcium Iron Transferrin Transferrin % Sat Ferritin Troponin I Total Protein (PEP) Albumin (PEP) Csymt-2-Pftbgwgnj Rdzxg-8-Syiokbwyz Prok-0-Fmwslzzl Slfe-7-Elnqmpsh Gamma Globulins Monoclonal Peak 3 Ser Monoclonl Protein Ser Monoclonal Prot 2 PEP Interpretation Vitamin B12 Folate Urine Color Urine Appearance Urine pH Ur Specific [place] Urine Protein Urine Glucose (UA) Urine Ketones Urine Blood Urine Nitrite Urine Bilirubin Urine Urobilinogen Ur Leukocyte Esterase Serum Immunofixation Free [place] LC, Quant Free Lambda LC, Quant Free [place]/Lambda Ratio COVID-19 Eval Order SARS-CoV-2, RNA, NAAT Blood Type O Positive Blood Type Recheck O Positive Antibody Screen NEGATIVE Crossmatch See Detail 10/14/20 10/14/20 10/14/20 13:33 13:33 13:33 WBC RBC Hgb Hct MCV MCH MCHC RDW Std Deviation RDW Coeff of Viviana Plt Count MPV Immature Gran % (Auto) Neut % (Auto) Lymph % (Auto) [place] % (Auto) Eos % (Auto) Baso % (Auto) Reticulocyte % (Auto) Neut # (Auto) Lymph # (Auto) [place] # (Auto) Eos # (Auto) Baso # (Auto) Reticulocyte # Immature Gran # (Auto) Absolute Nucleated RBC Nucleated RBC % (auto) Polychromasia Hypochromasia Microcytosis Ovalocytes Peripher Smr Path Cons Sodium Potassium Chloride Carbon Dioxide Anion Gap BUN Creatinine Est Cr Clr Drug Dosing Est GFR ( Amer) Est GFR (Non-Af Amer) BUN/Creatinine Ratio Glucose Calcium Iron 10 L Transferrin 303 Transferrin % Sat 2 L Ferritin 8.7 Troponin I Total Protein (PEP) Pending Albumin (PEP) Pending Mzszl-4-Upndpsdzh Pending Kxnok-1-Bgzbewnyt Pending Sbwc-0-Ivfhnecm Pending Hyff-9-Fzqgqvjq Pending Gamma Globulins Pending Monoclonal Peak 3 Pending Ser Monoclonl Protein Pending Ser Monoclonal Prot 2 Pending PEP Interpretation Pending Vitamin B12 465 Folate > 20.00 Urine Color Urine Appearance Urine pH Ur Specific [place] Urine Protein Urine Glucose (UA) Urine Ketones Urine Blood Urine Nitrite Urine Bilirubin Urine Urobilinogen Ur Leukocyte Esterase Serum Immunofixation Pending Free [place] LC, Quant Pending Free Lambda LC, Quant Pending Free [place]/Lambda Ratio Pending COVID-19 Eval Order SARS-CoV-2, RNA, NAAT Blood Type Blood Type Recheck Antibody Screen Crossmatch 10/14/20 10/15/20 10/15/20 18:01 00:23 01:47 WBC RBC Hgb 6.6 L* Hct 21.2 L MCV MCH MCHC RDW Std Deviation RDW Coeff of Viviana Plt Count MPV Immature Gran % (Auto) Neut % (Auto) Lymph % (Auto) [place] % (Auto) Eos % (Auto) Baso % (Auto) Reticulocyte % (Auto) Neut # (Auto) Lymph # (Auto) [place] # (Auto) Eos # (Auto) Baso # (Auto) Reticulocyte # Immature Gran # (Auto) Absolute Nucleated RBC Nucleated RBC % (auto) Polychromasia Hypochromasia Microcytosis Ovalocytes Peripher Smr Path Cons Sodium Potassium Chloride Carbon Dioxide Anion Gap BUN Creatinine Est Cr Clr Drug Dosing Est GFR ( Amer) Est GFR (Non-Af Amer) BUN/Creatinine Ratio Glucose Calcium Iron Transferrin Transferrin % Sat Ferritin Troponin I 0.558 H* Total Protein (PEP) Albumin (PEP) Dkwbp-0-Kdbzxltvh Rgyww-2-Tfepxupps Gvbi-7-Tycopkmn Cfxv-5-Pucdrmuo Gamma Globulins Monoclonal Peak 3 Ser Monoclonl Protein Ser Monoclonal Prot 2 PEP Interpretation Vitamin B12 Folate Urine Color Yellow Urine Appearance Clear Urine pH 5.0 Ur Specific [place] 1.028 Urine Protein Negative Urine Glucose (UA) Negative Urine Ketones Trace H Urine Blood Negative Urine Nitrite Negative Urine Bilirubin Negative Urine Urobilinogen Negative Ur Leukocyte Esterase Negative Serum Immunofixation Free [place] LC, Quant Free Lambda LC, Quant Free [place]/Lambda Ratio COVID-19 Eval Order SARS-CoV-2, RNA, NAAT Blood Type Blood Type Recheck Antibody Screen Crossmatch 10/15/20 10/15/20 09:42 09:42 WBC 9.03 RBC 3.50 L Hgb 8.7 L Hct 27.0 L MCV 77.1 L D MCH 24.9 L MCHC 32.2 RDW Std Deviation 49.5 H RDW Coeff of Viviana 17.4 H Plt Count 249 MPV 10.4 Immature Gran % (Auto) 0.2 Neut % (Auto) 80.6 Lymph % (Auto) 7.6 [place] % (Auto) 9.5 Eos % (Auto) 1.8 Baso % (Auto) 0.3 Reticulocyte % (Auto) Neut # (Auto) 7.27 H Lymph # (Auto) 0.69 L [place] # (Auto) 0.86 H Eos # (Auto) 0.16 Baso # (Auto) 0.03 Reticulocyte # Immature Gran # (Auto) 0.02 Absolute Nucleated RBC 0.06 H Nucleated RBC % (auto) 0.6 Polychromasia Hypochromasia Microcytosis Ovalocytes Peripher Smr Path Cons Sodium 138 Potassium 3.9 Chloride 108 H Carbon Dioxide 23 Anion Gap 6.0 BUN 24 H Creatinine 0.90 D Est Cr Clr Drug Dosing 76.6 Est GFR ( Amer) 98.5 Est GFR (Non-Af Amer) 85.0 BUN/Creatinine Ratio 26.4 H Glucose 105 H Calcium 8.8 Iron Transferrin Transferrin % Sat Ferritin Troponin I 0.358 H* Total Protein (PEP) Albumin (PEP) Nlhym-5-Btbsgmpor Yqfgf-7-Tpqjvztnm Hcgp-3-Oohtouon Kuyc-2-Tnrpljbh Gamma Globulins Monoclonal Peak 3 Ser Monoclonl Protein Ser Monoclonal Prot 2 PEP Interpretation Vitamin B12 Folate Urine Color Urine Appearance Urine pH Ur Specific [place] Urine Protein Urine Glucose (UA) Urine Ketones Urine Blood Urine Nitrite Urine Bilirubin Urine Urobilinogen Ur Leukocyte Esterase Serum Immunofixation Free [place] LC, Quant Free Lambda LC, Quant Free [place]/Lambda Ratio COVID-19 Eval Order SARS-CoV-2, RNA, NAAT Blood Type Blood Type Recheck Antibody Screen Crossmatch Diagnostic Findings EGD 10/15/20: -- Esophageal mucosal changes suggestive of short-segment Hernandez's esophagus. Biopsied. -- Gastritis. Biopsied. -- Non-bleeding duodenal ulcer with no stigmata of bleeding. -- Normal second portion of the duodenum. Medications Administered Medications No Known Home Medications 10/14/20 [History Confirmed 10/14/20] Home Medications Acetaminophen (Acetaminophen 325 Mg Tab) 650 mg PO Q4H PRN PRN Reason: Pain or Fever Stop: 11/13/20 16:16 Last Admin: 10/14/20 19:30 Dose: 650 mg Documented by: Pantoprazole Sodium 40 mg/ (Dextrose) 100 mls @ 20 mls/hr IV Q5H HOPE Stop: 11/13/20 13:59 Last Infusion: 10/15/20 10:46 Dose: 0 mg/hr, 0 mls/hr Documented by: Lactated Ringer's (Lr) 1,000 mls @ 125 mls/hr IV .Q8H HOPE Stop: 11/13/20 21:44 Last Infusion: 10/15/20 10:46 Dose: Infused Documented by: PG Care Time/CCT Total # of Minutes Spent Total Time Spent with Patient: Total time spent is greater than 50% in coordination of care (as documented) at patient's floor/unit and/or counseling patient:55 Coding Level of Care Code 44946 Subseq Hosp Care Lvl 3 Diagnoses Severe anemia D64.9 GI bleed K92.2 Aortic stenosis, severe I35.0 Elevated troponin R77.8
--- NOTE | 2020-10-15 13:40 | Anesthesiology Progress Note ---
Date of Service October 15, 2020 Anesthesia Post Procedure Vital Signs Vital Signs: Temp Pulse Pulse Resp BP BP Pulse Ox 10/15/20 12:56 66 20 145/94 H 99 10/15/20 12:40 66 20 133/87 98 10/15/20 12:25 64 20 113/81 94 10/15/20 10:54 36.8 C 67 20 134/95 96 10/15/20 07:26 58 L 10/15/20 07:01 36.8 C 55 L 55 L 16 112/74 112/74 96 10/15/20 06:10 36.8 C 56 L 18 114/70 97 10/15/20 05:13 36.6 C 58 L 18 106/67 97 10/15/20 05:10 36.7 C 58 L 20 109/71 98 10/15/20 04:55 36.7 C 60 16 112/74 97 10/15/20 04:39 36.8 C 59 L 18 114/77 97 10/15/20 04:18 37.1 C 61 18 111/69 91 10/15/20 03:20 37.0 C 63 20 114/74 96 10/15/20 02:20 36.7 C 65 18 108/68 97 10/15/20 02:05 37.7 C H 68 20 121/75 10/15/20 01:50 37.1 C 71 18 113/73 90 10/15/20 01:07 74 10/14/20 23:17 37.0 C 70 20 110/71 92 10/14/20 21:35 37.4 C 80 18 123/80 10/14/20 20:35 37.5 C 81 18 122/76 20 L 10/14/20 20:05 37.8 C H 77 18 118/76 91 10/14/20 19:35 37.7 C H 82 18 115/75 93 10/14/20 19:20 37.8 C H 75 18 113/75 91 10/14/20 19:02 37.6 C H 78 18 114/74 91 10/14/20 17:27 37.4 C 76 18 114/74 10/14/20 16:27 37.3 C 91 H 18 105/64 92 10/14/20 15:27 37.2 C 83 15 113/75 95 10/14/20 14:57 37.0 C 80 20 120/70 10/14/20 14:42 37.2 C 80 18 114/76 96 10/14/20 14:22 37.2 C 93 H 18 145/95 H 94 10/14/20 14:01 89 23 95 10/14/20 14:00 82 19 93/72 L 94 Transfer of Care Handoff Completed per policy Notes Mental Status: alert / awake / arousable and participated in evaluation Patient Amnestic to Procedure: Yes Nausea / Vomiting: adequately controlled Pain: adequately controlled Airway Patency, RR, SpO2: stable & adequate BP & HR: stable & adequate Hydration State: stable & adequate Anesthetic Complications: no major complications apparent and Pt Satisfied with anesthetic care
[2020-10-15] MEDS: LACTATED RINGER'S 1,000 ML IV SCH ×2 (13:48→16:45)
[2020-10-15] MEDS: IRON SUCROSE 300 MG in SODIUM CHLORIDE 0.9% 250 ML IV SCH (14:53)
--- NOTE | 2020-10-15 20:03 | Electrocardiogram Report ---
Test Reason : Blood Pressure : / mmHG Vent. Rate : 101 BPM Atrial Rate : 101 BPM P-R Int : 176 ms QRS Dur : 106 ms QT Int : 358 ms P-R-T Axes : 058 033 149 degrees QTc Int : 464 ms Sinus tachycardia with Premature atrial complexes with Aberrant conduction Incomplete right bundle branch block Left ventricular hypertrophy Marked ST abnormality, possible anterolateral subendocardial injury T wave abnormality, consider lateral ischemia Cannot rule out Septal infarct , age undetermined Abnormal ECG No previous ECGs available Confirmed by Mendoza Vyas ([id number]) on 10/15/2020 8:02:34 PM Referred By: REFERRED SELF Confirmed By:Mendoza Vyas
[2020-10-16] MEDS: LACTATED RINGER'S 1,000 ML IV SCH ×2 (00:43→08:36)
[2020-10-16] MEDS: PANTOprazole 40 MG in DEXTROSE 5% 100 ML IV SCH ×3 (01:52→10:11)
[2020-10-16] MEDS ORDERED: Nursing to Pharmacy Communication SCH (07:45)
[2020-10-16 09:13] LABS: Basophils # (auto) 0.03 K/uL (0-0.2); Basophils % (auto) 0.3 %; Eosinophils # (auto) 0.32 K/uL (0-0.5); Eosinophils % (auto) 3.2 %; Hemoglobin 8.8 g/dL (14.0-18.0); Immature Granulocytes # (auto) 0.03 K/uL (0.00-0.02); Immature Granulocytes % (auto) 0.3 %; Lymphocytes # (auto) 0.57 K/uL (1.2-3.4); Lymphocytes % (auto) 5.7 %; Mean Corpuscular Hemoglobin 24.2 pg (25-34); Mean Corpuscular Hgb Conc 31.4 g/dL (32-36); Mean Corpuscular Volume 76.9 fL (80-100); Mean Platelet Volume 10.4 fL (7.4-10.4); Monocytes # (auto) 0.96 K/uL (0.11-0.59); Monocytes % (auto) 9.6 %; Neutrophils # (auto) 8.08 K/uL (1.4-6.5); Neutrophils % (auto) 80.9 %; Nucleated RBC # (auto) 0.06 K/uL (0-0); Nucleated RBC % (auto) 0.6 %; Platelet Count 228 K/uL (130-400); RDW Coefficient of Variation 17.2 % (11.5-14.5); Red Blood Count 3.64 M/uL (4.7-6.1); White Blood Count 9.99 K/uL (4.8-10.8)
--- NOTE | 2020-10-16 09:24 | Gastroenterology Progress Note ---
Date of Service October 16, 2020 Assessment & Plan (1) Barretts esophagus: -Will need to continue Protonix therapy indefinitely -Plan for repeat EGD in 1 year -Outpatient follow-up with a GI in [place] as patient is moving after his hospitalization (2) Duodenal ulcer: -Continue Protonix 40 mg BID x 3 months, then decrease to 40 mg once daily for further treatment for GERD/Hernandez's -Avoid NSAIDs (3) Microcytic anemia: -Continue to monitor H/H -Supportive care per primary team Admission and Anticipated Discharge Date Admission Date: October 14, 2020 Subjective Patient is a 70 yo male with anemia. H/H presently 8.8/28.0 today. He underwent an EGD on 10/15/20 that indicated gastritis, a duodenal ulcer, & Hernandez's Esophagus. He is currently on an IV Protonix gtt. No new concerns. Review of Systems Constitutional: no fever and no chills Respiratory: no dyspnea Cardiovascular: no chest pain Gastrointestinal: no abdominal pain, no nausea, no vomiting, no coffee ground emesis and no melena Physical Exam Constitutional: well developed Respiratory: normal respiratory effort Cardiovascular: Extremities: no edema Gastrointestinal (Abdomen): Inspection/Auscultation: abdomen normal to inspection Psychiatric: A+Ox3, euthymic affect Results & Data Results & Data ([facility]) Vital Signs (Past 12 Hours) Vital Signs Temp Pulse Pulse Resp BP Pulse Ox 10/16/20 07:16 36.9 C 61 18 136/80 95 10/16/20 04:32 36.8 C 103 H 18 132/74 96 10/15/20 23:51 64 10/15/20 22:51 37.2 C 67 19 130/79 93 PG Care Time/CCT Total # of Minutes Spent Total Time Spent with Patient: Total time spent is greater than 50% in coordination of care (as documented) at patient's floor/unit and/or counseling patient: Coding Level of Care Code 00004 Subseq Hosp Care Lvl 3 Diagnoses Barretts esophagus K22.70 Duodenal ulcer K26.9 Microcytic anemia D50.9
[2020-10-16] MEDS ORDERED: PANTOprazole 40 MG TAB PO SCH (09:30)
[2020-10-16] MEDS: IRON SUCROSE 300 MG in SODIUM CHLORIDE 0.9% 250 ML IV SCH (09:33)
[2020-10-16 09:46] LABS: Albumin Level 2.8 gm/dl (3.4-5.0); BUN Creatinine Ratio 14.6 (10-20); Calcium 8.9 mg/dl (8.5-10.1); Creatinine Clr Calc Pharmacy 80.2 ml/min; Est GFR (African American) 100.4; Est GFR (Non-African American) 86.6; Potassium 3.1 mmol/L (3.5-5.1)
[2020-10-16 09:49] LABS: Albumin Globulin Ratio 0.8 (0.9-2); Bilirubin,Total 1.4 mg/dl (0.2-1); Globulin 3.4 gm/dl (2.5-4.0); Total Protein 6.2 gm/dl (6.4-8.2)
--- NOTE | 2020-10-16 10:43 | Discharge Summary ---
Date of Service October 16, 2020 Admission HPI Per Admitting Provider Gaetano Vinson is a 70 year old male who presents to the ER due to shortness of breath. With hindsight he feels he has been getting more short of breath on exertion for the past seven months. He is usually very active walking every day but has needed to take more more breaks during his walks. 2 weeks ago he stopped doing his 4 mile walk altogether due to shortness of breath and has had a rapid decline since then. He denies any chest pain. He does have presyncope but no syncopal episodes. No palpitations, claudication, orthopnea or PND. No fevers, chills, cough, URI symptoms. He was seen at [facility] 5 days ago and felt his symptoms were sinus related and he was started on doxycycline which made him nauseous so he stopped taking it. No hematemesis or vomiting. In the ER Hemoglobin was notably low at 5.3 (no prior available). 2 units blood transfusion ordered. He does report black stools but no worse than usual in the last 2 weeks and previously put this down to his diet. He does report nausea and vomiting has not had much to eat in the last 2 days after starting doxycycline on Monday due to his shortness of breath and concern for sinusitis by [facility]. He does not have a PCP and never had a colonoscopy. He denies any NSAID use. He does have a significant history fo mild reflux which he manages easily by not eating close to when he goes to bed. He does have a significant family history of his sister with multiple myeloma. Additionally in the ER his troponin was 0.597. EKG with marked ST depressions in lateral leads which appears to be dynamic. Murmur noted on exam and stat TTE ordered by ER. He was referred to medicine for admission and ongoing management of NSTEMI/anemia. Admission Exam Per Admitting Provider Constitutional: WD/WN, vitals as above Eyes: + conjunctival abnormality (pale) and PERRL Respiratory: normal respiratory effort, lungs clear to auscultation Cardiovascular:Rate/Rhythm: regular rate and regular rhythm Heart Sounds: + murmur (5/6 loudest LUSB ejection systolic) Vessels: no JVD Extremities: normal capillary refill and + pedal edema (trace pre-tibial); no calf tenderness Gastrointestinal (Abdomen): normal bowel sounds, soft, nontender, no hepatosplenomegaly Musculoskeletal: no cyanosis or clubbing, extremities motor strength 5/5 Skin: no rashes, warm and dry Neurologic: moves all extremities and awake; not confused Psychiatric: A+Ox3, euthymic affect Genitourinary: no CVA tenderness Principal Diagnosis 1. Severe Iron Deficiency Anemia secondary to Chronic GI Blood Loss. 2. Non-Bleeding Duodenal, Short Segment Hernandez's Esophagus. 3. Severe Aortic Stenosis on Echocardiogram 10/14/20. 4. Elevated Troponin I secondary to demand ischemia secondary to anemia, severe , GIB. -- This was NOT an ACS. Discharge Exam GENERAL: Pale complexion, patient in no acute distress. HEENT: Head is atraumatic, normocephalic. EOM's intact. Facies symmetric. No perioral cyanosis. NECK: No JVD. JVP is at the level of the clavicle sitting upright. Carotid upstrokes are + 2 bilaterally. No bruits are noted. CHEST/LUNGS: Clear to auscultation throughout all lung menendez. No wheezes, rales, or crackles. CVS: S1 and S2 are regular with a grade 2/6 crescendo decrescendo basal systolic murmur heard best over the R 2nd ICS. PMI is nondisplaced. No lifts, heaves, or thrills. No abdominal aortic or renal bruits. ABDOMINAL EXAM: Bowel sounds are present. No masses, organomegaly, or tenderness. EXTREMITIES: No clubbing or cyanosis. No edema. Intact posterior tibial and radial pulses bilaterally. NEUROLOGIC EXAM: Patient is awake, alert, and oriented. Pleasant and cooperative. Answers questions appropriately. Speech is clear. Normal movement in all 4 extremities. Gait pattern is unremarkable. Discharge Data Allergies Allergy/AdvReac Type Severity Reaction Status Date / Time amoxicillin Allergy Gastrointestinal Unverified 10/14/20 12:19 Upset doxycycline Allergy Nausea Unverified 10/14/20 12:19 Penicillins Allergy Verified 07/24/09 03:31 Consultations 10/14/20 13:38 ED Decision to Admit Stat 10/14/20 14:51 Consult Gastroenterology Routine 10/14/20: Cardiology Consultation. Procedures Performed Operation Date: 10/15/20 17:00 Actual Procedures p EGD Biopsy Cytology - Jaison Valerio MD EGD 10/15/20: -- Esophageal mucosal changes suggestive of short-segment Hernandez's esophagus. Biopsied. -- Gastritis. Biopsied. -- Non-bleeding duodenal ulcer with no stigmata of bleeding. -- Normal second portion of the duodenum. Ordered Studies 10/14/20 13:06 CT head/brain wo con Stat: The paranasal sinuses and mastoid air cells are clear. The calvarium and skull base are intact. The ventricles and sulci are within normal limits. There is no mass, hematoma, midline shift, or acute infarct. Impression: No acute intracranial abnormality. Hospital Course (1) Severe anemia: Mr. Vinson is a 70 year old male with a history of Severe Aortic Stenosis and Seasonal Allergies who was admitted 10/14/20 with Severe Microcytic Hypochromic Anemia (Iron Deficiency) secondary to chronic GI Blood Loss. Patient has experienced melanotic stools for several months. He felt he was in his usual state of health up until the fall -- when he began to experience some exertional dyspnea on his daily 4 mile walk. This exertional dyspnea continued to worsen as the weeks went by. Then, approximately 2 weeks ago -- the patient had to stop his daily walks due to this dyspnea. He explains that he started circling the drain quickly over this time frame. The patient contacted Dr. Vail by phone on the day prior to admission explaining his profound symptoms and is feeling that he was going to by the end of the week. Dr. Vail advised him to go to the ER for further evaluation and treatment. Patient was noted to be severely anemic in the ER with a Hgb of 5.3 g/dl with microcytic and hypochromic RBC indices. The patient was transfused 2 units of blood while in the emergency room, and subsequently received 2 more units of PRBC's. His Hgb was up to 8.7 g/dl on 10/15/20, up to 8.8 gm/dl on 10/16/20. Patient was evaluated by [facility] Gastro[facility]ology and an EGD was done on 10/15/20 and showed short segment Hernandez's esophagus, gastritis, and a non-bleeding duodenal ulcer. On the day of discharge there is no evidence of active bleeding. -- D/C IV Protonix at the time of discharge. -- Protonix 40 mg b.i.d. x 3 months, then 40 mg daily thereafter. -- IV Venofer 300 mg daily x 2 days which he received on 10/15/20 and 10/16/20. -- Start oral iron supplement on discharge. -- Iron level 10 mcg/dl. -- Transferrin 303 mg/dl. -- Transferrin saturation 2%. -- Ferritin is low normal at 8.7 mg/ml. -- Recheck CBC with diff in 1 to 2 weeks. (2) GI bleed: -- Secondary to short segment Hernandez's esophagus, gastritis, and a non-bleeding duodenal ulcer. -- Patient likely also has AVM's in his GI tract related to aortic stenosis. -- On IV Protonix throughout hospitalization. -- Discharged on oral Protonix 40 mg b.i.d. x 3 months, then 40 mg daily. -- Follow-up EGD in 1 year as per GI. -- Recheck CBC with diff in 1 to 2 weeks. (3) Aortic stenosis, severe: -- Patient referred to Dr. Douglas Purdy to discuss Aortic Stenosis, need for AVR, and to have Preop Catheterization. -- Dr. Vail, [facility] Cardiology is following this patient locally, but patient is in the process of moving to [place], [place]. ECHOCARDIOGRAM 10/14/20: -- Normal LV systolic function. -- LVEF 55% to 60% without regional wall motion abnormalities. -- Mild concentric LVH. -- Severe . -- Moderate MR. -- No prior studies for comparison. (4) Elevated troponin: -- Patient presented with a Hgb of 5.3 gm/dl and had an abnormal EKG on presentation -- lateral ST segment depressions but stat Echo in the ER showed normal wall motion and LV systolic function, severe . -- No anginal symptoms. -- Initial Troponin I was elevated at 0.597 ng/ml with subsequent values trending down at 0.558 and 0.358 ng/ml. -- Troponin I elevation is secondary to Demand Ischemia, this was not an ACS. Total Time Total Time Spent Total Time Spent (In Minutes): 40 Total Time Includes: Examination of the Patient, Discharge Planning, Medication Reconciliation and Communication With Other Providers Discharge Plan Discharge Items Patient Disposition: Home - Self-Care Reason For Visit: sob, hypotension anemia Discharge Diagnosis: 1. Severe Iron Deficiency Anemia secondary to Chronic GI Blood Loss. 2. Non-Bleeding Duodenal, Short Segment Hernandez's Esophagus. 3. Severe Aortic Stenosis on Echocardiogram 10/14/20. 4. Elevated Troponin I secondary to demand ischemia secondary to anemia, severe , GIB. -- This was NOT an ACS. Condition on Discharge: Good Health Concerns: 1. Hgb is still low at 8.8 gm/dl, normal is 14.0 to 16.0 gm/dl - so you are still anemic. 2. Your Iron levels were very low on admission due to chronic GI bleeding -- Iron stores need to be built back up. 3. Take Ferrous Sulfate 325 mg twice daily. 4. Take Protonix 40 mg twice a day x 3 months, then once daily thereafter. 5. You must have a follow-up EGD in 1 year. 6. Severe Aortic Valve Stenosis needs to be followed up with a Safety Trainer in [place]. Valve will need replaced. Activity: Resume your previous activity Activity Comment: Resume usual activities gradually. Avoid any heavy lifting/valsalva. Lifting: No more than 25 pounds Bathing: No limitations Sexual Activity: When tolerated Exercise/Sports: Gradually increase as tolerated Driving/Machine Use: No limitations Weightbearing: Full weightbearing Non-emergency contact: Primary Care Provider and Safety Trainer Call non-emergency contact if: you have any medication questions and your symptoms worsen Follow-up/Referrals: PCP[facility] [Primary Care Provider] - () Diet: Regular Ambulatory Orders: Complete Blood Count with Diff (Routine) Timeframe: 2 Weeks Location: Determined by Patient Ordered By: Breezy Hairston Attending Provider Instructions: 1. Take Ferrous Sulfate 325 mg twice daily. 2. Take Protonix 40 mg twice a day x 3 months, then once daily thereafter. 3. You must have a follow-up EGD in 1 year. 4. Severe Aortic Valve Stenosis needs to be followed up with a Safety Trainer in [place]. Valve will need replaced. Pending Studies at Discharge: No Stand-Alone Forms: My [employer], Smoking Cessation Medications and DC Order Prescriptions: New pantoprazole 40 mg Tablet,Delayed Release (Dr/Ec) 40 mg PO BID Qty: 180 RF: 3 ferrous sulfate 325 mg (65 mg iron) tablet,delayed release (DR/EC) 325 mg PO BID Qty: 180 RF: 3 No Action No Known Home Medications RF: 0 Discharge Orders: Discharge Order (Routine); Ordered 10/16/20 Ordered By: Breezy Colvin/Other Patient Handouts: Bleeding Gastrointestinal, Heart Valve Problems: Aortic Stenosis, Hernandez Esophagus RFA Admission Data Admit Date/Time: 10/14/20 14:25 Attending Provider: Gilmar Melissa Admit Provider: Douglas Carlin Primary Care Provider: PCP,NO Other Providers: Douglas Carlin ; Terry,Jimi West Other Interventions: Discharge Summary Assessment (RN) Last Done: 10/16/20 17:24 Supervising Physician Co-Signing Physician Notes Patient seen and examined on the day of discharge. I agree with the discharge summary by Breezy JEONG. I have reviewed the chart including labs, imaging and plans for discharge. patient feeling much better since transfusion taken off oxygen, saturations >90%, ambulated in halls, felt short of breath on exertion gave him Lasix 20mg IV, good response, breathing better likely some volume overload from transfusions and fluids at 125cc/hr x 2 days - GI bleed due to peptic ulcer disease: no active bleeding Protonix 40 BID x 1 month then daily follow up EGD in 3 months, needs to establish with GI provider in [place], he is moving there with his brother - Aortic stenosis: Dr. Vail will help establish him with director television news in [facility] Coding Level of Care Code D/C Day Management >30 mins Diagnoses Severe anemia D64.9 GI bleed K92.2 Aortic stenosis, severe I35.0 Elevated troponin R77.8 Time Spent (min) 65
--- NOTE | 2020-10-16 14:38 | XRay Report ---
XR chest 2V PA/lateral HISTORY: 70 years-old Male hypoxia acute hypoxia COMPARISON: 10/14/2020 TECHNIQUE: PA and lateral views of the chest FINDINGS: Cardiac silhouette is mildly enlarged. Small pleural effusions with hazy ill-defined bibasilar and mi dlung airspace opacities, progressed from comparison. No pneumothorax or overt pulmonary edema. Chron ic mid left clavicular fracture. Bones appear grossly intact. IMPRESSION: Small pleural effusions with midlung and bibasilar airspace opacities suggestive of pneum onia. ACT 112: Negative or not required by law. The above report was generated using voice recognition software. It may contain grammatical, syntax o r spelling errors. Electronically signed by: Uche Saunders M.D. 10/16/2020 2:37 PM
[2020-10-16] MEDS ORDERED: POTASSIUM CHLORIDE CRTAB 20 MEQ TABCR PO STA (14:50)
[2020-10-16] MEDS ORDERED: FUROSEMIDE 20 MG in SYRINGE 0 ML IV ONE (15:15)
[2020-10-19 12:02] LABS: Albumin 3.4 g/dL (3.8-4.8); Alpha 1 Globulin 0.4 g/dL (0.2-0.3); Alpha 2 Globulin 0.6 g/dL (0.5-0.9); Beta-1-Globulin 0.5 g/dL (0.4-0.6); Beta-2-Globulin 0.3 g/dL (0.2-0.5); Free Kappa 21.8 mg/L (3.3-19.4); Free Lambda 18.2 mg/L (5.7-26.3); Gamma Globulin 0.7 g/dL (0.8-1.7); Monoclonal Protein Band 1 DNR g/dL (NONE DETECTED); Monoclonal Protein Band 2 DNR g/dL (NONE DETECTED); Monoclonal Protein Band 3 DNR g/dL (NONE DETECTED)
== END 2020-10-16 18:50 | disposition home or self-care (01) | DRG 811 ==
LOC: ED 11:15 → SUATTDRO 14:25 → 2N 14:25

== ENCOUNTER 2021-11-13 17:21 | Inpatient (IN) ==
[2021-11-13] MEDS ORDERED: SODIUM CHLORIDE 0.9% 250 ML IV PRN ×2 (17:40→21:23)
[2021-11-13] MEDS ORDERED: PANTOprazole 80 MG in DEXTROSE 5% 100 ML IV ONE (17:42)
[2021-11-13] MEDS ORDERED: PANTOPRAZOLE BOLUS/DRIP 1 EA IV STA (17:42)
[2021-11-13 17:45] LABS: iSTAT Creatinine 1.3 mg/dl (0.6-1.3); iSTAT Hemoglobin 5.8 g/dl (14.0-18.0); iSTAT Ionized Calcium 1.17 mmol/l (1.12-1.32); iSTAT Potassium 4.4 mmol/L (3.3-5.0)
[2021-11-13 17:52] LABS: Hemoglobin 4.9 g/dL (14.0-18.0); Mean Corpuscular Hemoglobin 21.8 pg (25-34); Mean Corpuscular Hgb Conc 28.8 g/dL (32-36); Mean Corpuscular Volume 75.6 fL (80-100); Platelet Count 355 K/uL (130-400); RDW Coefficient of Variation 16.9 % (11.5-14.5); RDW Standard Deviation 47.2 fL (36.4-46.3); Red Blood Count 2.25 M/uL (4.7-6.1); White Blood Count 13.55 K/uL (4.8-10.8)
[2021-11-13 18:08] LABS: Basophils # (auto) 0.03 K/uL (0-0.2); Basophils % (auto) 0.2 %; Eosinophils # (auto) 0.05 K/uL (0-0.5); Eosinophils % (auto) 0.4 %; Hypochromasia Present; Immature Granulocytes # (auto) 0.05 K/uL (0.00-0.02); Immature Granulocytes % (auto) 0.4 %; Lymphocytes % (auto) 5.9 %; Monocytes # (auto) 0.75 K/uL (0.11-0.59); Monocytes % (auto) 5.5 %; Neutrophils # (auto) 11.87 K/uL (1.4-6.5); Neutrophils % (auto) 87.6 %; Ovalocytes 1+; Poikilocytosis Present
--- NOTE | 2021-11-13 18:08 | XRay Report ---
XR chest 1V portable HISTORY: Shortness of breath. COMPARISON: Chest 10/16/2020. FINDINGS: No pneumothorax. No pleural effusions. The heart is mildly enlarged. There is perihilar int erstitial/vascular thickening and hazy bibasilar densities. This favors mild interstitial pulmonary e lima. IMPRESSION: Cardiomegaly with mild interstitial pulmonary edema. ACT 112: Negative or not required by law. Electronically signed by: Lázaro Carroll M.D. 11/13/2021 6:06 PM
[2021-11-13 18:09] LABS: Albumin Globulin Ratio 1.6 (0.9-2); Albumin Level 4.2 gm/dl (3.4-5.0); BUN Creatinine Ratio 22.9 (10-20); Bilirubin,Total 0.5 mg/dl (0.2-1.0); Calcium 9.3 mg/dl (8.5-10.1); Creatinine Clr Calc Pharmacy 51.9 ml/min; Est GFR (African American) 62.2 ml/min; Est GFR (Non-African American) 53.6 ml/min; Globulin 2.7 gm/dl (2.5-4.0); Potassium 4.3 mmol/L (3.5-5.1); Total Protein 6.9 gm/dl (6.0-8.3)
--- NOTE | 2021-11-13 18:10 | Emergency Department Note ---
Impression & Plan Acute blood loss anemia, UGIB (upper gastrointestinal bleed), Barretts esophagus ED Provider Note CHIEF COMPLAINT: Shortness of breath HISTORY OF PRESENT ILLNESS: This 71-year-old male patient presents to the emergency department with complaints of shortness of breath with any exertion. The patient has a history of Hernandez's esophagus. Patient states he vomited x1 prior to arrival but did not notice any blood. He did recently have an upper endoscopy approximately 2 weeks ago and states biopsies were taken and are negative. He has a remote history of bleeding ulcer but none visualized on his most recent endoscopy. He has not noticed any active bleeding in the stools, soft stools or tarry stools. He did stop taking his iron supplementation so that he could assess the color of his stools more accurately. He believes he eats plenty of meat to supplement his iron intake. Patient denies any recent fevers, chills, CP or abd pain. REVIEW OF SYSTEMS: A review of systems was performed with positives and pertinent negatives listed in the history of present illness. 10 systems were reviewed and are otherwise negative. ALLERGIES: see below MEDICATIONS: see below PMH: see below SOCIAL HISTORY: see below DDx: Reactive airway disease, pneumonia, pneumothorax, anemia, COPD, CHF, infections, cardiac ischemia, pulmonary embolism, musculoskeletal, gastrointestinal, as well as other pathologies. PHYSICAL EXAM: Vital signs reviewed. General: Well-appearing but anxious 71 yo male, in no significant distress. HEENT: Pale conjunctiva, PERRLA, neck supple. Moist mucous membranes. Cardiovascular: Tachycardic and regular no extra sounds. Pulmonary: Clear to auscultation bilaterally, normal work of breathing. Abdomen: Soft, nontender, nondistended, positive bowel sounds. Musculoskeletal: Atraumatic, no peripheral edema. GI: Guaiac positive dark stool, formed with no gross blood. Neurologic: Patient awake alert and oriented x 3, speech is clear Skin: Warm, dry, no rash EMERGENCY DEPARTMENT COURSE/MDM: This patient was evaluated and appeared to be in no significant distress. IV access was obtained and laboratory work was drawn. The patient was placed on a equipment monitor phototypesetting and noted to be in a sinus tachycardia. I-STAT labs were performed and reveal a significant anemia with a hemoglobin of 5.2. Stool guaiac was positive, stool was dark without gross blood. Patient was consented for blood transfusion. He was typed and crossed for 2 units PRBCs. Laboratory work reveals a hemoglobin of 4.9. Patient was started on a Protonix bolus and drip. PRBCs were initiated. Case was discussed with the hospitalist service for admission and further management. MONITORING: An order for cardiac monitoring was placed and the patient is noted to be in a sinus tachycardia at 106 beats per minute. RADIOLOGY: see below EKG: sinus tachycardia at 111bpm, with premature supraventricular complexes, diffuse ST depression, QTc 446, when compared to previous dated 10/14/2020, ST changes are more severe, T wave abnl in lateral leads is worsened. DISPOSITION: Admit I have personally spent 35 minutes of critical care time in the direct management of this patient. This was a life/limb threatening event. This 35 minutes is in excess of all separately billable procedures. Past Med/Surg History Medical History Anemia Aortic stenosis follows with [facility] Barretts esophagus Hearing deficit Seasonal allergies Surgical History History of esophagogastroduodenoscopy (EGD) last 09/2020 History of wisdom tooth extraction Family History Other No family history of adverse response to anesthesia Social History Smoking Status: Former smoker Tobacco Type: Cigarettes Second Hand Exposure: No; Hx Alcohol Use: No Hx Substance Use: No Preferred Language: Georgian Communication Ability: Effective Pin Drafter Required: No Beliefs That Will Affect Care: None Current Living Situation: Alone Feels Safe at Home: Yes Assistive Devices: Glasses Allergies Allergies Allergy/AdvReac Type Severity Reaction Status Date / Time amoxicillin Allergy Mild Gastrointestinal Verified 11/13/21 18:46 Upset doxycycline Allergy Mild Nausea Verified 11/13/21 18:46 Home Meds Home Medications Medication Instructions Recorded Confirmed ibuprofen 200 mg tablet 200 mg PO Q6H PRN 11/13/21 11/13/21 pantoprazole 40 mg tablet,delayed 40 mg PO DAILY 11/13/21 11/13/21 release Results & Data (ED) Vital Signs Vital Signs - 24 hr 11/13/21 17:21 11/13/21 17:28 11/13/21 17:30 Temperature 36.6 C Temperature Source Oral Pulse Rate 102 H 106 H 106 H Pulse Rate [Right Finger] Pulse Rate from SpO2 Sensor Respiratory Rate 20 19 17 Respiratory Effort / Characteristics Respiratory Depth Blood Pressure 110/74 Blood Pressure [Right Arm] Blood Pressure Mean 86 Blood Pressure Mean [Right Arm] Blood Pressure Position Pulse Oximetry 100 Oxygen Delivery Method Room Air Sepsis Recent Fever Within 48 Hours No Sepsis New/Unexplained Change in Mental Status No Sepsis Action Taken by Nursing No Action Required 11/13/21 17:40 11/13/21 17:45 11/13/21 17:48 Temperature Temperature Source Pulse Rate 106 H 97 H 96 H Pulse Rate [Right Finger] Pulse Rate from SpO2 Sensor 96 H 94 H Respiratory Rate 20 19 Respiratory Effort / Characteristics Respiratory Depth Blood Pressure 101/74 103/74 Blood Pressure [Right Arm] Blood Pressure Mean 83 83 Blood Pressure Mean [Right Arm] Blood Pressure Position Pulse Oximetry 94 90 84 L Oxygen Delivery Method Room Air Sepsis Recent Fever Within 48 Hours Sepsis New/Unexplained Change in Mental Status Sepsis Action Taken by Nursing 11/13/21 17:58 11/13/21 18:00 11/13/21 18:15 Temperature Temperature Source Pulse Rate 94 H 86 Pulse Rate [Right Finger] 85 Pulse Rate from SpO2 Sensor 96 H 87 Respiratory Rate 22 25 H 13 Respiratory Effort / Characteristics Labored Respiratory Depth Normal Blood Pressure 94/61 L Blood Pressure [Right Arm] 103/74 Blood Pressure Mean 72 Blood Pressure Mean [Right Arm] 83 Blood Pressure Position Pulse Oximetry 97 95 96 Oxygen Delivery Method Sepsis Recent Fever Within 48 Hours Sepsis New/Unexplained Change in Mental Status Sepsis Action Taken by Nursing 11/13/21 19:06 11/13/21 19:14 11/13/21 19:33 Temperature 36.9 C 37 C Temperature Source Oral Oral Pulse Rate 86 81 Pulse Rate [Right Finger] 86 Pulse Rate from SpO2 Sensor Respiratory Rate 20 20 19 Respiratory Effort / Characteristics Respiratory Depth Blood Pressure 104/72 97/60 L Blood Pressure [Right Arm] 104/72 Blood Pressure Mean 82 72 Blood Pressure Mean [Right Arm] 82 Blood Pressure Position Sitting Pulse Oximetry 94 96 100 Oxygen Delivery Method Sepsis Recent Fever Within 48 Hours Sepsis New/Unexplained Change in Mental Status Sepsis Action Taken by Nursing 11/13/21 19:48 11/13/21 20:18 Temperature 37.0 C Temperature Source Oral Pulse Rate 80 80 Pulse Rate [Right Finger] Pulse Rate from SpO2 Sensor Respiratory Rate 19 18 Respiratory Effort / Characteristics Respiratory Depth Blood Pressure 93/55 L 98/67 L Blood Pressure [Right Arm] Blood Pressure Mean 67 77 Blood Pressure Mean [Right Arm] Blood Pressure Position Pulse Oximetry 97 98 Oxygen Delivery Method Sepsis Recent Fever Within 48 Hours Sepsis New/Unexplained Change in Mental Status Sepsis Action Taken by [facility] Medications Current Medication List: was personally reviewed by me Laboratory Data Attestation: I reviewed the patient's lab results. Result diagrams: 11/13/21 17:30 11/13/21 17:30 Lab Results 11/13/21 11/13/21 11/13/21 Range/Units 17:30 17:30 17:33 WBC 13.55 H (4.8-10.8) K/uL RBC 2.25 L (4.7-6.1) M/uL Hgb 4.9 L* (14.0-18.0) g/dL POC Hgb 5.8 L* (14.0-18.0) g/dl Hct 17.0 L* (42-52) % POC Hct 17 L* (42-52) % MCV 75.6 L (80-100) fL MCH 21.8 L (25-34) pg MCHC 28.8 L (32-36) g/dL RDW Std Deviation 47.2 H (36.4-46.3) fL RDW Coeff of Viviana 16.9 H (11.5-14.5) % Plt Count 355 (130-400) K/uL MPV 10.0 (7.4-10.4) fL Immature Gran % (Auto) 0.4 % Neut % (Auto) 87.6 % Lymph % (Auto) 5.9 % [place] % (Auto) 5.5 % Eos % (Auto) 0.4 % Baso % (Auto) 0.2 % Neut # (Auto) 11.87 H (1.4-6.5) K/uL Lymph # (Auto) 0.80 L (1.2-3.4) K/uL [place] # (Auto) 0.75 H (0.11-0.59) K/uL Eos # (Auto) 0.05 (0-0.5) K/uL Baso # (Auto) 0.03 (0-0.2) K/uL Immature Gran # (Auto) 0.05 H (0.00-0.02) K/uL Hypochromasia Present Poikilocytosis Present Ovalocytes 1+ POC Sodium 137 (135-144) mmol/L Sodium 135 L (136-145) mmol/L POC Potassium 4.4 (3.3-5.0) mmol/L Potassium 4.3 (3.5-5.1) mmol/L POC Chloride 106 (101-112) mmol/L Chloride 104 (98-107) mmol/L Carbon Dioxide 16 L (21-32) mmol/L POC Total CO2 16 L (24-31) mmol/L Anion Gap 15 H (3-11) POC Anion Gap 20.0 (16-25) mmol/L POC BUN 27 H (7-18) mg/dl BUN 30 H (6-23) mg/dl Creatinine 1.31 (0.6-1.4) mg/dl POC Creatinine 1.3 (0.6-1.3) mg/dl Est Cr Clr Drug Dosing 51.9 ml/min Est GFR ( Amer) 62.2 ml/min Est GFR (Non-Af Amer) 53.6 ml/min BUN/Creatinine Ratio 22.9 H (10-20) Glucose 201 H (70-99(Fasting)) mg/dl POC Glucose (other) 204 H (70-99) mg/dl Calcium 9.3 (8.5-10.1) mg/dl POC Ioniz Calcium Cr 1.17 (1.12-1.32) mmol/l Iron (35-175) mcg/dl Unsaturated IBC (155-355) mcg/dl Transferrin (200-360) mg/dl Ferritin (8-388) ng/ml Total Bilirubin 0.5 (0.2-1.0) mg/dl AST 22 (13-39) U/L ALT 17 (7-52) U/L Alkaline Phosphatase 59 (34-104) U/L Troponin I High Sens (0-20) pg/ml Total Protein 6.9 (6.0-8.3) gm/dl Albumin 4.2 (3.4-5.0) gm/dl Globulin 2.7 (2.5-4.0) gm/dl Albumin/Globulin Ratio 1.6 (0.9-2) Vitamin B12 (180-914) pg/ml Folate (>5.38) ng/ml SARS-CoV-2, RNA, NAAT (NEGATIVE) Blood Type Antibody Screen Crossmatch 11/13/21 11/13/21 11/13/21 Range/Units 17:50 17:54 18:32 WBC (4.8-10.8) K/uL RBC (4.7-6.1) M/uL Hgb (14.0-18.0) g/dL POC Hgb (14.0-18.0) g/dl Hct (42-52) % POC Hct (42-52) % MCV (80-100) fL MCH (25-34) pg MCHC (32-36) g/dL RDW Std Deviation (36.4-46.3) fL RDW Coeff of Viviana (11.5-14.5) % Plt Count (130-400) K/uL MPV (7.4-10.4) fL Immature Gran % (Auto) % Neut % (Auto) % Lymph % (Auto) % [place] % (Auto) % Eos % (Auto) % Baso % (Auto) % Neut # (Auto) (1.4-6.5) K/uL Lymph # (Auto) (1.2-3.4) K/uL [place] # (Auto) (0.11-0.59) K/uL Eos # (Auto) (0-0.5) K/uL Baso # (Auto) (0-0.2) K/uL Immature Gran # (Auto) (0.00-0.02) K/uL Hypochromasia Poikilocytosis Ovalocytes POC Sodium (135-144) mmol/L Sodium (136-145) mmol/L POC Potassium (3.3-5.0) mmol/L Potassium (3.5-5.1) mmol/L POC Chloride (101-112) mmol/L Chloride (98-107) mmol/L Carbon Dioxide (21-32) mmol/L POC Total CO2 (24-31) mmol/L Anion Gap (3-11) POC Anion Gap (16-25) mmol/L POC BUN (7-18) mg/dl BUN (6-23) mg/dl Creatinine (0.6-1.4) mg/dl POC Creatinine (0.6-1.3) mg/dl Est Cr Clr Drug Dosing ml/min Est GFR ( Amer) ml/min Est GFR (Non-Af Amer) ml/min BUN/Creatinine Ratio (10-20) Glucose (70-99(Fasting)) mg/dl POC Glucose (other) (70-99) mg/dl Calcium (8.5-10.1) mg/dl POC Ioniz Calcium Cr (1.12-1.32) mmol/l Iron (35-175) mcg/dl Unsaturated IBC (155-355) mcg/dl Transferrin (200-360) mg/dl Ferritin (8-388) ng/ml Total Bilirubin (0.2-1.0) mg/dl AST (13-39) U/L ALT (7-52) U/L Alkaline Phosphatase (34-104) U/L Troponin I High Sens 1484.1 H* (0-20) pg/ml Total Protein (6.0-8.3) gm/dl Albumin (3.4-5.0) gm/dl Globulin (2.5-4.0) gm/dl Albumin/Globulin Ratio (0.9-2) Vitamin B12 (180-914) pg/ml Folate (>5.38) ng/ml SARS-CoV-2, RNA, NAAT NEGATIVE (NEGATIVE) Blood Type O Positive Antibody Screen NEGATIVE Crossmatch See Detail 11/13/21 11/13/21 Range/Units 19:12 19:12 WBC (4.8-10.8) K/uL RBC (4.7-6.1) M/uL Hgb (14.0-18.0) g/dL POC Hgb (14.0-18.0) g/dl Hct (42-52) % POC Hct (42-52) % MCV (80-100) fL MCH (25-34) pg MCHC (32-36) g/dL RDW Std Deviation (36.4-46.3) fL RDW Coeff of Viviana (11.5-14.5) % Plt Count (130-400) K/uL MPV (7.4-10.4) fL Immature Gran % (Auto) % Neut % (Auto) % Lymph % (Auto) % [place] % (Auto) % Eos % (Auto) % Baso % (Auto) % Neut # (Auto) (1.4-6.5) K/uL Lymph # (Auto) (1.2-3.4) K/uL [place] # (Auto) (0.11-0.59) K/uL Eos # (Auto) (0-0.5) K/uL Baso # (Auto) (0-0.2) K/uL Immature Gran # (Auto) (0.00-0.02) K/uL Hypochromasia Poikilocytosis Ovalocytes POC Sodium (135-144) mmol/L Sodium (136-145) mmol/L POC Potassium (3.3-5.0) mmol/L Potassium (3.5-5.1) mmol/L POC Chloride (101-112) mmol/L Chloride (98-107) mmol/L Carbon Dioxide (21-32) mmol/L POC Total CO2 (24-31) mmol/L Anion Gap (3-11) POC Anion Gap (16-25) mmol/L POC BUN (7-18) mg/dl BUN (6-23) mg/dl Creatinine (0.6-1.4) mg/dl POC Creatinine (0.6-1.3) mg/dl Est Cr Clr Drug Dosing ml/min Est GFR ( Amer) ml/min Est GFR (Non-Af Amer) ml/min BUN/Creatinine Ratio (10-20) Glucose (70-99(Fasting)) mg/dl POC Glucose (other) (70-99) mg/dl Calcium (8.5-10.1) mg/dl POC Ioniz Calcium Cr (1.12-1.32) mmol/l Iron 14 L (35-175) mcg/dl Unsaturated IBC 434 H (155-355) mcg/dl Transferrin 327 (200-360) mg/dl Ferritin 4.3 L (8-388) ng/ml Total Bilirubin (0.2-1.0) mg/dl AST (13-39) U/L ALT (7-52) U/L Alkaline Phosphatase (34-104) U/L Troponin I High Sens (0-20) pg/ml Total Protein (6.0-8.3) gm/dl Albumin (3.4-5.0) gm/dl Globulin (2.5-4.0) gm/dl Albumin/Globulin Ratio (0.9-2) Vitamin B12 337 (180-914) pg/ml Folate 16.15 (>5.38) ng/ml SARS-CoV-2, RNA, NAAT (NEGATIVE) Blood Type Antibody Screen Crossmatch Administered Medications Pantoprazole Sodium 40 mg/ (Dextrose) 100 mls @ 20 mls/hr IV Q5H HOPE Stop: 12/13/21 17:59 Last Admin: 11/13/21 18:32 Dose: 8 mg/hr, 20 mls/hr Documented by: [id number] Discontinued Medications Pantoprazole Sodium (Protonix Bolus/Drip) 0 mls @ 1 mls/hr IV ONE STA Stop: 11/13/21 17:43 Last Admin: 11/13/21 18:40 Dose: Not Given Documented by: [id number] Pantoprazole Sodium 80 mg/ (Dextrose) 120 mls @ 400 mls/hr IV NOW ONE Stop: 11/13/21 17:59 Last Infusion: 11/13/21 18:49 Dose: 0 mls/hr Documented by: [id number] Admin: 11/13/21 18:05 Dose: 400 mls/hr Documented by: [id number] Lactated Ringer's (Lr) 500 mls @ 999 mls/hr IV .Q31M ONE Stop: 11/13/21 18:54 Last Infusion: 11/13/21 19:42 Dose: 0 mls/hr Documented by: [id number] Admin: 11/13/21 18:33 Dose: 999 mls/hr Documented by: [id number] Imaging Data Radiologist's Impression: Chest X-Ray 11/13/21 17:31 XR chest 1V portable HISTORY: Shortness of breath. COMPARISON: Chest 10/16/2020. FINDINGS: No pneumothorax. No pleural effusions. The heart is mildly enlarged. There is perihilar interstitial/vascular thickening and hazy bibasilar densities. This favors mild interstitial pulmonary edema. IMPRESSION: Cardiomegaly with mild interstitial pulmonary edema. ACT 112: Negative or not required by law. Electronically signed by: Lázaro Carroll M.D. 11/13/2021 6:06 PM Blood Pressure Blood Pressure Findings: Low blood pressure Blood Pressure Disposition: further management by hospitalist Discharge Plan Visit Data Chief Complaint: Shortness of Breath/Dyspnea Stated Complaint: CHEST PAIN, SOB ED Provider: Marjorie Pastrana Patient Disposition: Admitted As Inpatient Prescriptions Prescriptions: No Action ibuprofen 200 mg Tablet 200 mg PO Q6H PRN (Reason: Pain) RF: 0 pantoprazole 40 mg tablet,delayed release (DR/EC) 40 mg PO DAILY RF: 0
--- NOTE | 2021-11-13 18:18 | History & Physical Report ---
Date of Service November 13, 2021 Assessment & Plan (1) Severe anemia: Plan: - Hgb 4.9 in ED, patient was typed and crossed and consent was achieved, 2 units RBCs ordered down here. Will order more units for transfusion overnight. Will obtain H/H 1 hour after first unit is completed, if showing improvement, will continue to trend every 4 hours - Suspect chronic GI bleed given his history, however has not noticed any dark stools or gianfranco red blood in stools, urine, or any emesis. Microcytic anemia. Also would consider possibility that he is poorly absorbing iron, given that he is previously on iron supplements and eats steak daily now to supplement. 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 Has never had a colonoscopy, so should follow-up with them as outpatient to have this done. - Received 250 cc NSS bolus in ED, ordered additional 500 cc LR bolus, as well as maintenance fluids as patient is mildly hypotensive, has history of severe aortic stenosis. - Iron panel with ferritin, B12, folate ordered prior to transfusion. (2) Elevated troponin: Plan: - Initial hsTrop 1484.1, will repeat in 2 hours and then trend q6h x3. - Also obtain EKG, echo. - Suspect this is very likely in the setting of profound anemia and known severe aortic stenosis. No chest pain, tightness, palpitations, the shortness of breath could be considered anginal equivalent but it has been ongoing for weeks, worse over the past 3 days, therefore more likely can be attributed to the anemia, even aortic stenosis. (3) Aortic stenosis, severe: Plan: - May be contributing to shortness of breath, however focus for now will have to remain on hemoglobin which is probably driving his SOB. While transfusing blood, will also maintain adequate volume status. - Will place a routine consult for cardiology to see patient while he is here. Patient seen by cardiology last admission September 2020, recommended he be seen by cardiology as outpt for considerration of valve replacement. He was planning to move to [facility], so referral to local provider was deferred. (4) Barretts esophagus: Plan: - Protonix gtt with bolus here, but is to be on Protonix 40 mg daily indefinitely on D/C. Plan: - PCU. - SCDs, chemoppx deferred for now. - DNR/DNI. History of Present Illness Chief Complaint: progressively worsening shortness of breath x 3 days Primary Care Provider: Annabelle Roque MD Mr. Vinson is a 71-year-old male with a past medical history of Hernandez's esophagus and severe aortic stenosis who presents today with shortness of breath on exertion over the past several days. Patient states he been feeling well recently until the last few weeks when he had become more short of breath with activity he could previously sustain easily. It has been so bad over the past few days that he is winded with tasks like walking to get his mail or cleaning his home. He has come to our ED today for further evaluation. He does have a history of gastritis and a non-bleeding duodenal ulcer diagnosed in September 2020. At that time, he was placed on Protonix to be continued indefinitely. He was also previously taking iron pills, however discontinued these in September, as they had made his stools very dark and he felt he would be unable to assess for blood. He was placed iron pills with daily stakes or iron supplementation. No other symptoms, was previously feeling very well. Does have a history of severe aortic stenosis, when he was admitted for similar presentation as above 1 year ago, cardiology consult was placed and at that time, it was felt he should be considered for valve replacement, however GI work-up had taken priority. Recommended he follow-up with cardiology as outpatient for his, patient states he has not done this yet. In ED, he is mildly tachycardic with heart rate in 90s, otherwise vital signs within normal meds, stable. Labs significant for Hgb 4.9, microcytic. BUN 30, creatinine 1.31, up from baseline of 0.80.9. Glucose 201. WBC 13.55. Electrolytes, LFTs WNL. CXR with cardiomegaly with mild interstitial pulmonary edema. Protonix drip with bolus and 250 cc NS was administered in ED, hospitalist service consulted for further evaluation and admission. Allergies Allergy/AdvReac Type Severity Reaction Status Date / Time amoxicillin Allergy Mild Gastrointestinal Verified 11/13/21 18:46 Upset doxycycline Allergy Mild Nausea Verified 11/13/21 18:46 Home Medications Medication Instructions Recorded Confirmed Type ibuprofen 200 mg tablet 200 mg PO Q6H PRN 11/13/21 11/13/21 History pantoprazole 40 mg tablet,delayed 40 mg PO DAILY 11/13/21 11/13/21 History release Past Med/Surg History Medical History Anemia Aortic stenosis follows with Kip Astrid Barretts esophagus Hearing deficit Seasonal allergies Surgical History History of esophagogastroduodenoscopy (EGD) last 09/2020 History of wisdom tooth extraction Family History Other No family history of adverse response to anesthesia Social History Smoking Status: Never smoker Tobacco Type: Cigarettes Second Hand Exposure: No; Do You Dip or Chew Tobacco: No; Hx Alcohol Use: No Hx Substance Use: No Preferred Language: Bengali Communication Ability: Effective Integration Director Required: No Beliefs That Will Affect Care: None Current Living Situation: Alone Other Information That Helps Us Care for You: No Feels Safe at Home: Yes Safety Concerns: Feels Safe At This Time Assistive Devices: Glasses Review of Systems Review of Systems: Constitutional: No fever/chills, weakness, fatigue, myalgias, anorexia, night sweats Eyes: No diplopia, no worsening or blurred vision ENT: normal hearing, no trouble swallowing Respiratory: STEPHEN, sometimes with rest and minimal activity Cardiovascular: No chest pain, tightness or palpitations Abdomen: No pain, nausea, vomiting, diarrhea or constipation : Denies dysuria, hematuria, increased urgency/frequency, urinary retention Musculoskeletal: No joint pain, calf pain, swelling Neurologic: No weakness, numbness/tingling, or balance problems Psychiatric: No anxiety or depression Skin: No rash or itch Physical Exam Physical Exam: General: awake, alert, no apparent distress, appears pale Head: Normocephalic, atraumatic ENT: PERRL, EOMI, no pharyngeal exudate, mucous membranes moist Chest: Clear to auscultation, on room air, no adventitious breath sounds Cardiac: Regular rate and rhythm, no murmur, no JVD, normal peripheral pulses, good capillary refill Abdominal: NABS x 4 quadrants, soft, nontender to palpation, no rebound, guarding or tenderness Extremities: Normal inspection, no peripheral edema or erythema, calfs nontender to palpation Psych: Normal mood and affect Neuro: AAO x 3, strength intact bilaterally and rated 5/5, no motor deficits, speech is clear, no peripheral sensory deficits Skin: no rash or erythema Results & Data Results & Data ([facility]) Vital Signs (Past 12 Hours) Vital Signs Temp Pulse Pulse Resp BP BP Pulse Ox 11/13/21 17:58 85 22 103/74 97 11/13/21 17:40 106 H 20 101/74 94 11/13/21 17:30 106 H 17 11/13/21 17:28 106 H 19 11/13/21 17:21 36.6 C 102 H 20 110/74 100 Laboratory Results Abnormal lab results 11/13/21 11/13/21 11/13/21 Range/Units 17:30 17:30 17:33 WBC 13.55 H (4.8-10.8) K/uL RBC 2.25 L (4.7-6.1) M/uL Hgb 4.9 L* (14.0-18.0) g/dL POC Hgb 5.8 L* (14.0-18.0) g/dl Hct 17.0 L* (42-52) % POC Hct 17 L* (42-52) % MCV 75.6 L (80-100) fL MCH 21.8 L (25-34) pg MCHC 28.8 L (32-36) g/dL RDW Std Deviation 47.2 H (36.4-46.3) fL RDW Coeff of Viviana 16.9 H (11.5-14.5) % Neut # (Auto) 11.87 H (1.4-6.5) K/uL Lymph # (Auto) 0.80 L (1.2-3.4) K/uL Kinney # (Auto) 0.75 H (0.11-0.59) K/uL Immature Gran # (Auto) 0.05 H (0.00-0.02) K/uL Sodium 135 L (136-145) mmol/L Carbon Dioxide 16 L (21-32) mmol/L POC Total CO2 16 L (24-31) mmol/L Anion Gap 15 H (3-11) POC BUN 27 H (7-18) mg/dl BUN 30 H (6-23) mg/dl BUN/Creatinine Ratio 22.9 H (10-20) Glucose 201 H (70-99(Fasting)) mg/dl POC Glucose (other) 204 H (70-99) mg/dl Crossmatch 11/13/21 Range/Units 17:50 WBC (4.8-10.8) K/uL RBC (4.7-6.1) M/uL Hgb (14.0-18.0) g/dL POC Hgb (14.0-18.0) g/dl Hct (42-52) % POC Hct (42-52) % MCV (80-100) fL MCH (25-34) pg MCHC (32-36) g/dL RDW Std Deviation (36.4-46.3) fL RDW Coeff of Viviana (11.5-14.5) % Neut # (Auto) (1.4-6.5) K/uL Lymph # (Auto) (1.2-3.4) K/uL Kinney # (Auto) (0.11-0.59) K/uL Immature Gran # (Auto) (0.00-0.02) K/uL Sodium (136-145) mmol/L Carbon Dioxide (21-32) mmol/L POC Total CO2 (24-31) mmol/L Anion Gap (3-11) POC BUN (7-18) mg/dl BUN (6-23) mg/dl BUN/Creatinine Ratio (10-20) Glucose (70-99(Fasting)) mg/dl POC Glucose (other) (70-99) mg/dl Crossmatch See Detail Diagnostic Findings Chest X-Ray 11/13/21 17:31 XR chest 1V portable HISTORY: Shortness of breath. COMPARISON: Chest 10/16/2020. FINDINGS: No pneumothorax. No pleural effusions. The heart is mildly enlarged. There is perihilar interstitial/vascular thickening and hazy bibasilar densities. This favors mild interstitial pulmonary edema. IMPRESSION: Cardiomegaly with mild interstitial pulmonary edema. ACT 112: Negative or not required by law. Electronically signed by: Lázaro Carroll M.D. 11/13/2021 6:06 PM Code Status & VTE Plan Code Status DNR/DNI. Supervising Physician Co-Signing Physician Notes I personally examined the patient and verified all engel points of history and exam, discussed case, and agree with decision making with Rogers FORBES weak, STEPHEN, worse over last few weeks, then profound last few days. notes stopped taking iron due to stool issues but tries to eat a lot of red meat. notes in the last year Hgb was at one point as high as 14. never had colo vitals noted nad heent nc at mmm breathing unlabored no accessory muscles good effort quite pale profound anemia -iron deficiency almost certainly - question is LGI losses vs iron malabsorption. -for now check iron levels (and for completeness b12, folic acid) -transfuse -should have colo in near future since never had one - largely he prefers to have done as outpt and since no active hemorrhage this is quite reasonable - will ask for this to be arranged (ideally for within the next ~2-4wks) -if colo negative can consider SBFT or capsule endoscopy but also then would need to look at likely outpt IV iron periodically, serial labs, etc otherwise as above PG Care Time/CCT Total # of Minutes Spent Total Time Spent with Patient: Total time spent is greater than 50% in coordination of care (as documented) at patient's floor/unit and/or counseling patient: Coding Level of Care Code 85991 Initial Inpt Care Lvl 3 Diagnoses Severe anemia D64.9 Barretts esophagus K22.70 Aortic stenosis, severe I35.0 Elevated troponin R77.8
[2021-11-13] MEDS ORDERED: LACTATED RINGER'S 500 ML IV ONE (18:24)
[2021-11-13] MEDS: PANTOprazole 40 MG in DEXTROSE 5% 100 ML IV SCH ×2 (18:32→23:03)
[2021-11-13 20:26] LABS: Ferritin 4.3 ng/ml (8-388)
[2021-11-13 20:31] LABS: Folate (Folic Acid) 16.15 ng/ml (>5.38)
[2021-11-13] MEDS ORDERED: FERROUS SULFATE 325 MG TAB PO SCH (21:23)
[2021-11-13] MEDS ORDERED: ONDANSETRON INJ 2 MG/ML 2 ML VIAL IV PRN (21:23)
[2021-11-13] MEDS ORDERED: ACETAMINOPHEN 325 MG TAB PO PRN (21:23)
[2021-11-13] MEDS ORDERED: POLYETHYLENE (MIRALAX) 17 GM PACK PO PRN (21:23)
[2021-11-14] MEDS: PANTOprazole 40 MG in DEXTROSE 5% 100 ML IV SCH ×5 (04:00→22:28)
[2021-11-14 04:18] LABS: Hemoglobin 7.2 g/dL (14.0-18.0); Mean Corpuscular Hemoglobin 24.9 pg (25-34); Mean Corpuscular Hgb Conc 31.3 g/dL (32-36); Mean Corpuscular Volume 79.6 fL (80-100); Mean Platelet Volume 10.6 fL (7.4-10.4); Nucleated RBC # (auto) 0.04 K/uL (0-0); Nucleated RBC % (auto) 0.4 %; Platelet Count 300 K/uL (130-400); RDW Coefficient of Variation 17.2 % (11.5-14.5); RDW Standard Deviation 50.5 fL (36.4-46.3); Red Blood Count 2.89 M/uL (4.7-6.1); White Blood Count 12.51 K/uL (4.8-10.8)
[2021-11-14 04:24] LABS: Calcium 8.8 mg/dl (8.5-10.1); Creatinine Clr Calc Pharmacy 67.9 ml/min; Est GFR (African American) 86.2 ml/min; Est GFR (Non-African American) 74.3 ml/min; Potassium 4.1 mmol/L (3.5-5.1)
[2021-11-14 04:34] LABS: Anisocytosis Present; Basophilic Stippling 1+; Basophils # (auto) 0.02 K/uL (0-0.2); Basophils % (auto) 0.2 %; Eosinophils # (auto) 0.04 K/uL (0-0.5); Eosinophils % (auto) 0.3 %; Hypochromasia Present; Immature Granulocytes # (auto) 0.03 K/uL (0.00-0.02); Immature Granulocytes % (auto) 0.2 %; Lymphocytes # (auto) 1.03 K/uL (1.2-3.4); Lymphocytes % (auto) 8.2 %; Microcytosis Present; Monocytes # (auto) 0.89 K/uL (0.11-0.59); Monocytes % (auto) 7.1 %; Polychromasia 1+
--- NOTE | 2021-11-14 08:08 | Hospitalist Progress Note ---
Date of Service November 14, 2021 Assessment & Plan (1) Severe anemia: (2) Elevated troponin: (3) GI bleed: (4) Aortic stenosis, severe: (5) Duodenal ulcer: (6) Barretts esophagus: Plan: Gaetano is a 71 year old male w/ PmHx Hernandez's esophagus, duodenal ulcer, severe aortic stenosis who was admitted for low hemoglobin and elevated high sensitivity troponin. Severe Anemia: -Hgb on entry 4.9, received 2units PRBCs. -Repeat Hgb 7.5 this AM. -Iron low at 14, Ferritin low at 4.3, stool guaiac in ED positive. -EGD from 10/28/21 w/o evidence of bleed. -May have GI bleed w/ compounding iron deficiency which resulted in low hemoglobin. -GI consulted: -Can expedite colonoscopy from later next month to next week. -Liquid diet for now, bowel prep tomorrow, possible colonoscopy Monday. -Ordered IV Venofer 200mg. -AM CBC. Elevated Troponin: -Troponin I peaked at 26,674, downtrended to 21,651 today. -EKG w/ ST depressions in anterolateral and inferior leads, T wave inversion on lateral leads on initial EKG. -Repeat EKG 11/[address] segments. -CXR 11/14 cardiomegaly w/ evidence of CHF and pulmonary edema worsened compared to CXR 11/13. -Echo 11/14/21 w/ severe aortic stenosis, EF 35-40%, worsened since 10/14/20 echo w/ EF 55-60% but still w/ evidence of severe aortic stenosis. -Worsening oxygenation on 11/14 w/ improvement after 10mg and 20mg doses of IV Lasix. -Cardiology consulted: -No chest pain, ECG improved overnight - elevated trop and pulm edema 2/2 inability to manage volume overload from PRBCs. -Avoid antiplatelet and anticoagulation with potential GI bleed. -Once volume unloaded, clinically stable - can go to laboratory veterinarian for treatment approach (need for CABG, [facility] valve vs TAVR). -Continue diuresis w/ careful monitoring of BP. Severe Aortic Stenosis: -Same plan as above. Alex Esophagus/Hx Duodenal Ulcer: -Continue Protonix gtt. DVT Prophylaxis: SCDs, holding chemical prophylaxis in setting of potential GI bleed. F/E/N/GI: Full liquid, bowel prep tomorrow, NPO midnight tomorrow night for potential colonoscopy. Code status: DNR/DNI. Dispo: PCU Admission and Anticipated Discharge Date Admission Date: November 13, 2021 Supervising Physician Co-Signing Physician Notes I personally examined the patient and verified all engel points of history and exam, discussed case, and agree with decision making with Dr Michaud SOB started when laying down for echo. better sitting up. vitals noted nad heent nc at mmm lungs faintly coarse sl diminished bibasilar no accessory muscles or tachypnea when i see him profound anemia -iron deficiency almost certainly - question is LGI losses vs iron malabsorption. -for now check iron levels (and for completeness b12, folic acid) -transfused -should have colo in near future since never had one - will need to have stability in cardiac situation first -if colo negative can consider SBFT or capsule endoscopy but also then would need to look at likely outpt IV iron periodically, serial labs, etc cardiomyopathy -severe , now reduced EF focal wall motion abnormalities -acutely would fit w demand ischemia from severe anemia compounded by , but chronically concerning for underlying CAD acute on chronic combined CHF -lasix, supportive care, follow otherwise as above Subjective Patient seen at the bedside this morning. Patient stated he is still short of breath at rest, recently had an echo this morning and afterwards had increased shortness of breath that got better with him getting up and walking to the bathroom. 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 He denies nausea, fevers, chills, chest pain. Has had a few palpitations occasionally that he describes as PVCs. Patient had desaturations while talking with me into the upper 70's and 80's that improved with oxygen and deep breaths. Review of Systems 2 Constitutional: as per Subjective / HPI Physical Exam Constitutional: WD/WN, vitals as above Not in any acute distress. Eyes: PERRL, conjunctivae normal, anicteric sclerae Respiratory: Lungs clear to auscultation in all menendez except scattered rhonchi on the left, mostly in upper air menendez. Cardiovascular: RRR, no murmur, no edema Extremities: normal capillary refill Gastrointestinal (Abdomen): normal bowel sounds, soft, nontender, no hepatosplenomegaly Skin: no rashes, warm and dry Results & Data Results & Data ([facility]) Vital Signs (Past 12 Hours) Vital Signs Temp Pulse Pulse Resp BP BP Pulse Ox 11/14/21 07:08 83 11/14/21 03:30 37.0 C 78 18 91/61 L 91 11/14/21 01:19 37.0 C 87 20 94/65 L 92 11/14/21 00:57 37.0 C 79 20 94/65 L 92 11/13/21 23:57 37.1 C 80 18 95/60 L 92 11/13/21 23:27 36.8 C 82 16 99/63 L 92 11/13/21 23:18 36.9 C 76 18 123/39 L 95 11/13/21 23:12 36.8 C 88 18 101/68 94 11/13/21 23:07 36.8 C 88 18 101/68 94 11/13/21 22:57 36.7 C 83 18 97/62 L 95 11/13/21 22:42 36.8 C 81 15 95/60 L 95 11/13/21 22:18 85 11/13/21 22:00 36.4 C L 98 H 20 99/63 L 97 11/13/21 21:45 36.8 C 90 20 97/59 L 97 11/13/21 21:18 36.4 C L 88 20 99/63 L 97 11/13/21 21:07 98 H 11/13/21 20:18 37.0 C 80 18 98/67 L 98 Resident Activity Tracking Resident Involvement: Resident Care Provided Care Provided: [facility] Medicine
[2021-11-14] MEDS ORDERED: COUGH DROP (SUGAR FREE) LOZ 24 LOZ/1 BOX BUCCAL ONE (08:09)
[2021-11-14] MEDS ORDERED: ALBUTEROL HFA 8 GM INHALER INH PRN (08:43)
[2021-11-14] MEDS ORDERED: IRON SUCROSE 200 MG in 0.9 % SODIUM CHLORIDE 100 ML IV ONE (09:00)
[2021-11-14] MEDS ORDERED: FUROSEMIDE INJ 20 MG/2 ML VIAL IV ONE ×2 (09:00→10:07)
--- NOTE | 2021-11-14 09:19 | XRay Report ---
SINGLE VIEW CHEST CLINICAL HISTORY: Dyspnea. FINDINGS: 2 AP, portable, upright chest radiographs are compared to study dated 11/13/2021. The heart is enlarged noting atherosclerotic calcification of the thoracic aorta. There is pulmonary vascular c ongestion with interstitial edema. There are small pleural effusions with dependent consolidation. No pneumothorax is seen. The skeletal structures are osteopenic. The bony thorax is grossly intact. IMPRESSION: 1. Cardiomegaly with evidence of congestive failure and pulmonary edema. This has significantly worse lindsay as compared to yesterday. 2. Small pleural effusions. ACT 112: Negative or not required by law. Electronically signed by: Cong Jordan M.D. 11/14/2021 9:16 AM
--- NOTE | 2021-11-14 09:53 | Gastrointestinal Consultation ---
Date of Consultation November 14, 2021 Assessment & Plan (1) Severe anemia: Patient presenting with worsening anemia and shortness of breath. This is certainly being contributed by his severe aortic stenosis. I think it would be prudent to make arrangements for a colonoscopy, it was scheduled for late next month but we can certainly try and expedite with Dr. Stewart early next week. The patient should remain on a full liquid diet this weekend and begin a bowel preparation tomorrow afternoon with Colyte. Recommendations Liquid diet this bowel preparation to be started Monday evening Colonoscopy with Dr. Stewart with Dr. Valerio on Monday (2) Aortic stenosis, severe: History of Present Illness Reason for Consultation: Anemia Requesting Physician: Dr. Broderick Attending Physician: Presley Broderick, DO History of Present Illness Mr. Vinson is a 71-year-old male with a past medical history of severe aortic stenosis who presented with shortness of breath on exertion over the past several days. The patient had had a recent upper endoscopy notable for an irregular Z-line and biopsies negative for Hernandez's esophagus. He is scheduled to have a colonoscopy at some point in the near future and denies having hematochezia dark sticky stool or being told of heme positive stools in the past. The patient recalls that he has never had a colonoscopy performed. Allergies Allergy/AdvReac Type Severity Reaction Status Date / Time amoxicillin Allergy Mild Gastrointestinal Verified 11/13/21 18:46 Upset doxycycline Allergy Mild Nausea Verified 11/13/21 18:46 Home Medications Medication Instructions Recorded Confirmed Type ibuprofen 200 mg tablet 200 mg PO Q6H PRN 11/13/21 11/13/21 History pantoprazole 40 mg tablet,delayed 40 mg PO DAILY 11/13/21 11/13/21 History release Patient History Medical History Anemia Aortic stenosis follows with B[facility] Resendiz Barretts esophagus Hearing deficit Seasonal allergies Surgical History History of esophagogastroduodenoscopy (EGD) last 09/2020 History of wisdom tooth extraction Family History Other No family history of adverse response to anesthesia Social History Smoking Status: Never smoker Tobacco Type: Cigarettes Second Hand Exposure: No; Do You Dip or Chew Tobacco: No; Hx Alcohol Use: No Hx Substance Use: No Preferred Language: Faroese Communication Ability: Effective Muffler Hand Required: No Beliefs That Will Affect Care: None Current Living Situation: Alone Other Information That Helps Us Care for You: No Feels Safe at Home: Yes Safety Concerns: Feels Safe At This Time Assistive Devices: Glasses Review of Systems Constitutional: + fatigue and + malaise; no fever, no chills, no sweats and no weight loss Eyes: no diplopia Ear, Nose, Mouth, Throat: + dizziness; no facial pain Respiratory: + dyspnea; no cough and no hemoptysis Cardiovascular: no chest pain and no chest pain with activity Gastrointestinal: no abdominal pain, no bloating, no early satiety, no nausea and no vomiting Genitourinary: no urinary frequency or no hematuria Musculoskeletal: no radicular pain Integumentary: no rash Neurologic: no falls and no paralysis Psychiatric: no hopelessness Endocrine: + fatigue; no polydipsia and no cold intolerance Hematologic / Lymphatic: no coagulopathy Physical Exam Constitutional: well nourished and + ill appearing Eyes: PERRL, conjunctivae normal, anicteric sclerae ENMT: external ear and nose normal, oropharynx normal Neck: trachea midline, no thyromegaly Respiratory: Auscultation: no crackles and no wheezes Cardiovascular: Heart Sounds: + murmur Gastrointestinal (Abdomen): Inspection/Auscultation: abdomen not distended Neurologic: Speech / Cognition: normal speech Results & Data ([facility]) Vital Signs (Past 12 Hours) Vital Signs Temp Pulse Pulse Resp BP BP Pulse Ox 11/14/21 08:45 36.6 C 91 H 22 98/68 L 96 11/14/21 08:44 26 H 85 L 11/14/21 08:43 28 H 68 L 11/14/21 07:08 83 11/14/21 03:30 37.0 C 78 18 91/61 L 91 11/14/21 01:19 37.0 C 87 20 94/65 L 92 11/14/21 00:57 37.0 C 79 20 94/65 L 92 11/13/21 23:57 37.1 C 80 18 95/60 L 92 11/13/21 23:27 36.8 C 82 16 99/63 L 92 11/13/21 23:18 36.9 C 76 18 123/39 L 95 11/13/21 23:12 36.8 C 88 18 101/68 94 11/13/21 23:07 36.8 C 88 18 101/68 94 11/13/21 22:57 36.7 C 83 18 97/62 L 95 11/13/21 22:42 36.8 C 81 15 95/60 L 95 11/13/21 22:18 85 11/13/21 22:00 36.4 C L 98 H 20 99/63 L 97 Laboratory Results Laboratory Results - last 24 hr 11/13/21 11/13/21 11/13/21 17:30 17:30 17:30 WBC 13.55 H RBC 2.25 L Hgb 4.9 L* POC Hgb Hct 17.0 L* POC Hct MCV 75.6 L MCH 21.8 L MCHC 28.8 L RDW Std Deviation 47.2 H RDW Coeff of Viviana 16.9 H Plt Count 355 MPV 10.0 Immature Gran % (Auto) 0.4 Neut % (Auto) 87.6 Lymph % (Auto) 5.9 Phillips % (Auto) 5.5 Eos % (Auto) 0.4 Baso % (Auto) 0.2 Neut # (Auto) 11.87 H Lymph # (Auto) 0.80 L Phillips # (Auto) 0.75 H Eos # (Auto) 0.05 Baso # (Auto) 0.03 Immature Gran # (Auto) 0.05 H Absolute Nucleated RBC Nucleated RBC % (auto) Polychromasia Hypochromasia Present Poikilocytosis Present Basophilic Stippling Anisocytosis Microcytosis Ovalocytes 1+ POC Sodium Sodium 135 L POC Potassium Potassium 4.3 POC Chloride Chloride 104 Carbon Dioxide 16 L POC Total CO2 Anion Gap 15 H POC Anion Gap POC BUN BUN 30 H Creatinine 1.31 POC Creatinine Est Cr Clr Drug Dosing 51.9 Est GFR ( Amer) 62.2 Est GFR (Non-Af Amer) 53.6 BUN/Creatinine Ratio 22.9 H Glucose 201 H POC Glucose (other) Calcium 9.3 POC Ioniz Calcium Cr Iron Unsaturated IBC Transferrin Ferritin Total Bilirubin 0.5 AST 22 ALT 17 Alkaline Phosphatase 59 Troponin I High Sens Total Protein 6.9 Albumin 4.2 Globulin 2.7 Albumin/Globulin Ratio 1.6 Vitamin B12 Folate Hepatitis C Ab (EIA) Pending Hep C Ab Signal/Cutoff Pending SARS-CoV-2, RNA, NAAT Blood Type Antibody Screen Crossmatch 11/13/21 11/13/21 11/13/21 17:33 17:50 17:54 WBC RBC Hgb POC Hgb 5.8 L* Hct POC Hct 17 L* MCV MCH MCHC RDW Std Deviation RDW Coeff of Viviana Plt Count MPV Immature Gran % (Auto) Neut % (Auto) Lymph % (Auto) Phillips % (Auto) Eos % (Auto) Baso % (Auto) Neut # (Auto) Lymph # (Auto) Phillips # (Auto) Eos # (Auto) Baso # (Auto) Immature Gran # (Auto) Absolute Nucleated RBC Nucleated RBC % (auto) Polychromasia Hypochromasia Poikilocytosis Basophilic Stippling Anisocytosis Microcytosis Ovalocytes POC Sodium 137 Sodium POC Potassium 4.4 Potassium POC Chloride 106 Chloride Carbon Dioxide POC Total CO2 16 L Anion Gap POC Anion Gap 20.0 POC BUN 27 H BUN Creatinine POC Creatinine 1.3 Est Cr Clr Drug Dosing Est GFR ( Amer) Est GFR (Non-Af Amer) BUN/Creatinine Ratio Glucose POC Glucose (other) 204 H Calcium POC Ioniz Calcium Cr 1.17 Iron Unsaturated IBC Transferrin Ferritin Total Bilirubin AST ALT Alkaline Phosphatase Troponin I High Sens Total Protein Albumin Globulin Albumin/Globulin Ratio Vitamin B12 Folate Hepatitis C Ab (EIA) Hep C Ab Signal/Cutoff SARS-CoV-2, RNA, NAAT NEGATIVE Blood Type O Positive Antibody Screen NEGATIVE Crossmatch See Detail 11/13/21 11/13/21 11/13/21 18:32 19:12 19:12 WBC RBC Hgb POC Hgb Hct POC Hct MCV MCH MCHC RDW Std Deviation RDW Coeff of Viviana Plt Count MPV Immature Gran % (Auto) Neut % (Auto) Lymph % (Auto) Phillips % (Auto) Eos % (Auto) Baso % (Auto) Neut # (Auto) Lymph # (Auto) Phillips # (Auto) Eos # (Auto) Baso # (Auto) Immature Gran # (Auto) Absolute Nucleated RBC Nucleated RBC % (auto) Polychromasia Hypochromasia Poikilocytosis Basophilic Stippling Anisocytosis Microcytosis Ovalocytes POC Sodium Sodium POC Potassium Potassium POC Chloride Chloride Carbon Dioxide POC Total CO2 Anion Gap POC Anion Gap POC BUN BUN Creatinine POC Creatinine Est Cr Clr Drug Dosing Est GFR ( Amer) Est GFR (Non-Af Amer) BUN/Creatinine Ratio Glucose POC Glucose (other) Calcium POC Ioniz Calcium Cr Iron 14 L Unsaturated IBC 434 H Transferrin 327 Ferritin 4.3 L Total Bilirubin AST ALT Alkaline Phosphatase Troponin I High Sens 1484.1 H* Total Protein Albumin Globulin Albumin/Globulin Ratio Vitamin B12 337 Folate 16.15 Hepatitis C Ab (EIA) Hep C Ab Signal/Cutoff SARS-CoV-2, RNA, NAAT Blood Type Antibody Screen Crossmatch 11/13/21 11/14/21 11/14/21 21:14 03:52 03:52 WBC 12.51 H RBC 2.89 L Hgb 7.2 L POC Hgb Hct 23.0 L POC Hct MCV 79.6 L D MCH 24.9 L MCHC 31.3 L RDW Std Deviation 50.5 H RDW Coeff of Viviana 17.2 H Plt Count 300 MPV 10.6 H Immature Gran % (Auto) 0.2 Neut % (Auto) 84.0 Lymph % (Auto) 8.2 Phillips % (Auto) 7.1 Eos % (Auto) 0.3 Baso % (Auto) 0.2 Neut # (Auto) 10.50 H Lymph # (Auto) 1.03 L Phillips # (Auto) 0.89 H Eos # (Auto) 0.04 Baso # (Auto) 0.02 Immature Gran # (Auto) 0.03 H Absolute Nucleated RBC 0.04 H Nucleated RBC % (auto) 0.4 Polychromasia 1+ Hypochromasia Present Poikilocytosis Basophilic Stippling 1+ Anisocytosis Present Microcytosis Present Ovalocytes POC Sodium Sodium POC Potassium Potassium POC Chloride Chloride Carbon Dioxide POC Total CO2 Anion Gap POC Anion Gap POC BUN BUN Creatinine POC Creatinine Est Cr Clr Drug Dosing Est GFR ( Amer) Est GFR (Non-Af Amer) BUN/Creatinine Ratio Glucose POC Glucose (other) Calcium POC Ioniz Calcium Cr Iron Unsaturated IBC Transferrin Ferritin Total Bilirubin AST ALT Alkaline Phosphatase Troponin I High Sens 12878.2 H* D 75119.7 H* D Total Protein Albumin Globulin Albumin/Globulin Ratio Vitamin B12 Folate Hepatitis C Ab (EIA) Hep C Ab Signal/Cutoff SARS-CoV-2, RNA, NAAT Blood Type Antibody Screen Crossmatch 11/14/21 03:52 WBC RBC Hgb POC Hgb Hct POC Hct MCV MCH MCHC RDW Std Deviation RDW Coeff of Viviana Plt Count MPV Immature Gran % (Auto) Neut % (Auto) Lymph % (Auto) Phillips % (Auto) Eos % (Auto) Baso % (Auto) Neut # (Auto) Lymph # (Auto) Phillips # (Auto) Eos # (Auto) Baso # (Auto) Immature Gran # (Auto) Absolute Nucleated RBC Nucleated RBC % (auto) Polychromasia Hypochromasia Poikilocytosis Basophilic Stippling Anisocytosis Microcytosis Ovalocytes POC Sodium Sodium 137 POC Potassium Potassium 4.1 POC Chloride Chloride 107 Carbon Dioxide 21 POC Total CO2 Anion Gap 9 POC Anion Gap POC BUN BUN 27 H Creatinine 1.00 D POC Creatinine Est Cr Clr Drug Dosing 67.9 Est GFR ( Amer) 86.2 Est GFR (Non-Af Amer) 74.3 BUN/Creatinine Ratio 27.0 H Glucose 94 POC Glucose (other) Calcium 8.8 POC Ioniz Calcium Cr Iron Unsaturated IBC Transferrin Ferritin Total Bilirubin AST ALT Alkaline Phosphatase Troponin I High Sens Total Protein Albumin Globulin Albumin/Globulin Ratio Vitamin B12 Folate Hepatitis C Ab (EIA) Hep C Ab Signal/Cutoff SARS-CoV-2, RNA, NAAT Blood Type Antibody Screen Crossmatch Diagnostic Findings EGD results 10/28/21 There were esophageal mucosal changes consistent with short-segment Hernandez's esophagus present in the distal esophagus. The maximum longitudinal extent of these mucosal changes was 2 cm in length. Mucosa was biopsied with a cold forceps for histology. One specimen bottle was sent to pathology. A small hiatal hernia was present. The examined duodenum was normal. Esophagus, biopsy: - Inflamed columnar/gastric type mucosa. - Negative for intestinal metaplasia and dysplasia. - Squamous mucosa with reactive cellular changes
[2021-11-14 10:29] LABS: Basophils # (auto) 0.02 K/uL (0-0.2); Basophils % (auto) 0.1 %; Eosinophils # (auto) 0.02 K/uL (0-0.5); Eosinophils % (auto) 0.1 %; Hematocrit (blood only) 23.6 % (42-52); Hemoglobin 7.5 g/dL (14.0-18.0); Immature Granulocytes # (auto) 0.05 K/uL (0.00-0.02); Immature Granulocytes % (auto) 0.3 %; Lymphocytes # (auto) 0.52 K/uL (1.2-3.4); Lymphocytes % (auto) 3.5 %; Mean Corpuscular Hemoglobin 24.9 pg (25-34); Mean Corpuscular Hgb Conc 31.8 g/dL (32-36); Mean Corpuscular Volume 78.4 fL (80-100); Mean Platelet Volume 9.9 fL (7.4-10.4); Monocytes # (auto) 1.15 K/uL (0.11-0.59); Monocytes % (auto) 7.7 %; Neutrophils # (auto) 13.12 K/uL (1.4-6.5); Neutrophils % (auto) 88.3 %; Nucleated RBC # (auto) 0.04 K/uL (0-0); Nucleated RBC % (auto) 0.3 %; Platelet Count 308 K/uL (130-400); RDW Coefficient of Variation 17.3 % (11.5-14.5); RDW Standard Deviation 49.9 fL (36.4-46.3); Red Blood Count 3.01 M/uL (4.7-6.1); White Blood Count 14.88 K/uL (4.8-10.8)
[2021-11-14 10:52] LABS: Hypochromasia Present; Polychromasia 1+
--- NOTE | 2021-11-14 11:16 | Cardiology Consultation ---
Date of Consultation November 14, 2021 Assessment & Plan (1) Pulmonary edema: (2) Aortic stenosis, severe: (3) Cardiomyopathy: (4) Severe anemia: (5) Elevated troponin: (6) Moderate mitral regurgitation: Patient with progressive aortic stenosis who now presents with declining systolic function, multiple new wall motion normalities and rising troponin, and new onset pulmonary edema. He has not had chest pain and his ECG is actually improved overnight, suggesting that his abrupt troponin elevation and pulmonary edema are secondary to inability to manage acute volume overload of his PRBC transfusions. Fortunately, he is responding to IV diuretics fairly promptly. Etiology of his multiple wall motion abnormalities uncertain, could represent underlying coronary artery disease or hypoperfusion from his critical aortic stenosis. Suspect these are subacute given improving ECG and absence of chest pain, but low threshold for emergent cardiac catheterization should his clinical status decline. In the absence of more definitive evidence for acute coronary syndrome and given presumed GI bleeding as the cause for his profound anemia would avoid antiplatelet agents and anticoagulation at this time. Once he has volume unloaded and is clinically stable, recommended that he proceed to cardiac catheterization to include/exclude coronary artery disease and determine best approach to valve replacement (CABG plus mechanical valve versus TAVR versus other option). I checked on him several times throughout the morning and he was gradually improving. As noted, low threshold for transfer to critical care and/or calling in the interventional team should his clinical status decline. History of Present Illness Reason for Consultation: elevated trop with ST depresion, known severe Requesting Physician: Presley Broderick DO Attending Physician: Presley Broderick DO History of Present Illness 71-year-old man with severe aortic stenosis and history of prior upper GI bleeding who was admitted 11/05/2021 with a several month history of progressive dyspnea on exertion which had become abruptly worse over several days just prior to admission, initial evaluation shows profound anemia (4.9) and rising troponin (increasing from 1484 to 26,000 range). He had a similar presentation 1 year ago with progressive dyspnea, EGD showed Hernandez's esophagus/gastritis/duodenal ulcer, he was transfused and consideration of aortic valve replacement was recommended. He followed up at the [facility] and there was some discussion about valve replacement (mechanical versus TAVR), however he felt better and apparently was told that his echocardiogram looked better and he did not pursue valve replacement. He was walking and exercising regularly without difficulty, however several months ago he noted that he became dyspneic on modest levels of exertion. He had at least 1 presyncopal episode several weeks ago. He denies chest pain at any time. Over the past few days, his dyspneic symptoms became unbearable and he presented to the emergency department. He does have orthopnea and PND but no leg edema. He notes that he stopped taking his ferrous sulfate supplements sometime ago and his stool has been brown, no obvious ongoing GI bleeding. He did test positive for COVID in September, current COVID test is negative. Initial evaluation here showed the anemia, troponin elevation, chest x-ray with mild interstitial edema, ECG with sinus rhythm/LVH with repolarization abnormality and marked increase in baseline ST depressions, echocardiogram with reduced systolic function (EF 30%), multiple new wall motion abnormalities and severe aortic stenosis. He received 2 units of packed red blood cells overnight, this morning he had worsening dyspnea and a chest x-ray that showed pulmonary edema. He has received IV Lasix and begun to diurese and notes that his breathing is easing up considerably. At the time of my evaluation, he was no longer dyspneic at rest (on supplemental face mask oxygen) and had no major complaints. As noted, he has denied chest pain at any time. Allergies Allergy/AdvReac Type Severity Reaction Status Date / Time amoxicillin Allergy Mild Gastrointestinal Verified 11/13/21 18:46 Upset doxycycline Allergy Mild Nausea Verified 11/13/21 18:46 Home Medications Medication Instructions Recorded Confirmed Type ibuprofen 200 mg tablet 200 mg PO Q6H PRN 11/13/21 11/13/21 History pantoprazole 40 mg tablet,delayed 40 mg PO DAILY 11/13/21 11/13/21 History release Patient History Medical History Anemia Aortic stenosis follows with [facility] Resend[facility] Barretts esophagus Hearing deficit Seasonal allergies Surgical History History of esophagogastroduodenoscopy (EGD) last 09/2020 History of wisdom tooth extraction Family History Other No family history of adverse response to anesthesia Social History Smoking Status: Never smoker Tobacco Type: Cigarettes Second Hand Exposure: No; Do You Dip or Chew Tobacco: No; Hx Alcohol Use: No Hx Substance Use: No Preferred Language: Telugu Communication Ability: Effective Punch Hand Required: No Beliefs That Will Affect Care: None Current Living Situation: Alone Other Information That Helps Us Care for You: No Feels Safe at Home: Yes Safety Concerns: Feels Safe At This Time Assistive Devices: Glasses Physical Exam Physical Exam: He appeared moderately distressed earlier this morning, still with mildly labored respirations but no longer appears distressed. BP low normal. Pulse 90 bpm and regular. Readily palpable radial pulse. Skin: Warm and dry, no diaphoresis. No ecchymoses or generalized lesions. HEENT: unremarkable. Neck: Jugular venous pulse one quarter the way to the angle of the jaw with increased respiratory variation, bilateral transmitted murmurs heard in the carotids. . Lungs: Bilateral crackles one third the way up, no obvious wheezing or accessory muscle use. No abdominal paradox. Cardiac: regular rhythm, 3/6 systolic ejection murmur right upper sternal border radiating to the carotids and across the left precordium to the axilla, aortic closure sound is inaudible. No diastolic murmur. Abdomen: benign. Extremities: no edema, pulses intact. Neurologic: normal affect and conversation, grossly nonfocal. Results & Data ([facility]) Laboratory Results Troponin increased from 1500 range to 26,000 before dropping to 22,000. Initial hemoglobin 4.9, up to 7.5 this morning. WBC 14.88, platelet count normal. Normal electrolytes, BUN 27, creatinine 1.0. Iron level 14, ferritin 4.3. Diagnostic Findings Initial ECG showed sinus tachycardia at 111 bpm with LVH and repolarization abnormalities, up to [address] depression noted. Subsequent ECG today showed sinus rhythm at 87 bpm with significantly less precordial ST depression (less than 5 mm). Chest x-ray yesterday showed mild interstitial edema, today showed overt pulmonary edema. Echocardiogram showed moderately reduced systolic function (EF 35-40%), multiple wall motion abnormalities, severe aortic stenosis, and moderate mitral regurgitation. Compared with 2020 study, systolic function has declined, aortic stenosis is more severe, and wall motion abnormalities are new. PG Care Time/CCT Total # of Minutes Spent Total Time Spent with Patient: Total time spent is greater than 50% in coordination of care (as documented) at patient's floor/unit and/or counseling patient: Coding Level of Care Code 04463 Inpt Consult Level 5 Diagnoses Aortic stenosis, severe I35.0 Severe anemia D64.9 Elevated troponin R77.8 Pulmonary edema J81.1 Cardiomyopathy I42.9 Moderate mitral regurgitation I34.0
--- NOTE | 2021-11-14 12:10 | XCELERA ---
[id number]
--- NOTE | 2021-11-14 13:41 | Electrocardiogram Report ---
Test Reason : Blood Pressure : / mmHG Vent. Rate : 111 BPM Atrial Rate : 111 BPM P-R Int : 168 ms QRS Dur : 112 ms QT Int : 328 ms P-R-T Axes : 090 -05 188 degrees QTc Int : 446 ms Sinus tachycardia with Premature supraventricular complexes Marked ST abnormality, possible inferior subendocardial injury Marked ST abnormality, possible anterseptal subendocardial injury Abnormal ECG When compared with ECG of 14-OCT-2020 12:28, Premature supraventricular complexes are now Present ST more depressed Inferior leads ST more depressed Anterolateral leads T wave inversion more evident in Lateral leads Confirmed by Jose Vela ([id number]) on 11/14/2021 1:41:01 PM Referred By: REFERRED SELF Confirmed By:Jose Vela
--- NOTE | 2021-11-14 14:00 | Electrocardiogram Report ---
Test Reason : Blood Pressure : / mmHG Vent. Rate : 085 BPM Atrial Rate : 085 BPM P-R Int : 182 ms QRS Dur : 124 ms QT Int : 412 ms P-R-T Axes : 034 -29 089 degrees QTc Int : 490 ms Sinus rhythm with occasional Premature ventricular complexes and Premature atrial complexes Left ventricular hypertrophy with QRS widening and repolarization abnormality ST depression in Anterolateral leads Abnormal ECG When compared with ECG of 13-NOV-2021 17:23, Premature ventricular complexes are now Present ST less depressed in Inferior leads ST less depressed in Anterolateral leads T wave inversion less evident in Lateral leads Confirmed by Jose Vela ([id number]) on 11/14/2021 1:59:47 PM Referred By: REFERRED SELF Confirmed By:Jose Vela
--- NOTE | 2021-11-14 14:45 | Electrocardiogram Report ---
Test Reason : Blood Pressure : / mmHG Vent. Rate : 087 BPM Atrial Rate : 087 BPM P-R Int : 162 ms QRS Dur : 124 ms QT Int : 404 ms P-R-T Axes : 024 -36 091 degrees QTc Int : 486 ms Normal sinus rhythm with sinus arrhythmia Left axis deviation Left ventricular hypertrophy with QRS widening and repolarization abnormality ST depression in Anterolateral leads Abnormal ECG When compared with ECG of 13-NOV-2021 22:47, Premature ventricular complexes are no longer Present Premature atrial complexes are no longer Present ST less depressed in Anterior leads Confirmed by Jose Vela ([id number]) on 11/14/2021 2:45:15 PM Referred By: REFERRED SELF Confirmed By:Jose Vela
--- NOTE | 2021-11-14 16:26 | Communication Note ---
Date of Service: November 14, 2021 It appears the patient is to have a cardiac catherterizaton on monday. Would suggest discussing the case on Monday with the patients primary GI group ([facility] Palencia) to see about timing of a colonoscopy.
--- NOTE | 2021-11-14 16:38 | Billing Data ---
Date of Service November 14, 2021 Coding Level of Care Code 73297 Subseq Hosp Care Lvl 3
[2021-11-14] MEDS: CYANOCOBALAMIN (B-12) 500 MCG TABLET PO SCH (19:31)
[2021-11-15] MEDS: PANTOprazole 40 MG in DEXTROSE 5% 100 ML IV SCH ×5 (03:22→20:45)
[2021-11-15 06:11] LABS: Hematocrit (blood only) 21.9 % (42-52); Hemoglobin 6.8 g/dL (14.0-18.0); Mean Corpuscular Hemoglobin 24.3 pg (25-34); Mean Corpuscular Hgb Conc 31.1 g/dL (32-36); Mean Corpuscular Volume 78.2 fL (80-100); Mean Platelet Volume 10.6 fL (7.4-10.4); Platelet Count 281 K/uL (130-400); RDW Coefficient of Variation 17.9 % (11.5-14.5); RDW Standard Deviation 51.6 fL (36.4-46.3); White Blood Count 12.56 K/uL (4.8-10.8)
[2021-11-15 06:22] LABS: Basophils # (auto) 0.03 K/uL (0-0.2); Basophils % (auto) 0.2 %; Eosinophils # (auto) 0.46 K/uL (0-0.5); Eosinophils % (auto) 3.7 %; Hypochromasia Present; Immature Granulocytes # (auto) 0.03 K/uL (0.00-0.02); Immature Granulocytes % (auto) 0.2 %; Lymphocytes # (auto) 1.08 K/uL (1.2-3.4); Lymphocytes % (auto) 8.6 %; Monocytes # (auto) 1.11 K/uL (0.11-0.59); Monocytes % (auto) 8.8 %; Neutrophils # (auto) 9.85 K/uL (1.4-6.5); Neutrophils % (auto) 78.5 %; Ovalocytes 1+; Polychromasia 1+; Schistocytes 1+
[2021-11-15 06:29] LABS: BUN Creatinine Ratio 19.6 (10-20); Calcium 8.9 mg/dl (8.5-10.1); Est GFR (African American) 89.4 ml/min; Est GFR (Non-African American) 77.1 ml/min; Potassium 3.7 mmol/L (3.5-5.1)
[2021-11-15] MEDS ORDERED: SODIUM CHLORIDE 0.9% 250 ML IV PRN (06:33)
--- NOTE | 2021-11-15 06:46 | Hospitalist Progress Note ---
Date of Service November 15, 2021 Assessment & Plan (1) Severe anemia: (2) Elevated troponin: (3) GI bleed: (4) Aortic stenosis, severe: (5) Duodenal ulcer: (6) Barretts esophagus: Plan: Gaetano is a 71 year old male w/ PmHx Hernandez's esophagus, duodenal ulcer, severe aortic stenosis who was admitted for low hemoglobin and elevated high sensitivity troponin. Severe Anemia: -Hgb on entry 4.9, transfused 2units PRBCs. -Repeat Hgb 6.8 this AM, transfused 1 unit PRBCs. -Iron low at 14, Ferritin low at 4.3, stool guaiac in ED positive. -EGD from 10/28/21 w/o evidence of bleed. -May have GI bleed w/ compounding iron deficiency which resulted in low hemoglobin. -GI consulted: -Could expedite colonoscopy from later next month to this week after catheterization. -Liquid diet for now. -Transfuse if hemoglobin <7. -AM CBC. Elevated Troponin: -Troponin I peaked at 28,185. -EKG w/ ST depressions in anterolateral and inferior leads, T wave inversion on lateral leads on initial EKG. -Repeat EKG 11/[address] segments. -Echo 11/14/21 w/ severe aortic stenosis, EF 35-40%, worsened since 10/14/20 echo w/ EF 55-60% but still w/ evidence of severe aortic stenosis. -Most likely due to poor forward flow at aorta in setting of 2 units PRBC transfusion. -Cardiology consulted: -No chest pain, ECG improved overnight - elevated trop and pulm edema due to inability to manage volume overload from PRBCs. -Avoid antiplatelet and anticoagulation with potential GI bleed. -Can continue with daily dose of Lasix. -Once volume unloaded, clinically stable - can go to laboratory mechanic helper for treatment approach (need for CABG, [facility] valve vs TAVR). -Lasix 20mg IV qAM. -Continue to monitor vitals. Pulmonary Edema: -CXR 11/14 cardiomegaly w/ evidence of CHF and pulmonary edema worsened compared to CXR 11/13. -Worsening oxygenation on 11/14 w/ improvement after 10mg and 20mg doses of IV Lasix. -Lasix 20mg IV qAM. -Same plan as above. Severe Aortic Stenosis: -Same plan as above. Alex Esophagus/Hx Duodenal Ulcer: -Continue Protonix gtt. DVT Prophylaxis: SCDs, holding chemical prophylaxis in setting of potential GI bleed. F/E/N/GI: Full liquid, bowel prep tomorrow, NPO midnight tomorrow night for potential colonoscopy. Code status: DNR/DNI. Dispo: PCU Admission and Anticipated Discharge Date Admission Date: November 13, 2021 Supervising Physician Co-Signing Physician Notes Resident Physician Supervision Note: I independently interviewed and examined the patient and verified the engel history and physical, reviewed labs and image studies and agree with resident Dr. Michaud findings and care plan. Subjective Spoke to patient at bedside today. Patient stated he is feeling fine this morning, just anxious at the potential results of the catheterization procedure he is scheduled for. Denies any shortness of breath, chest pain, fevers, chills. Review of Systems Constitutional: as per Subjective / HPI Physical Exam Constitutional: WD/WN, vitals as above Eyes: PERRL, conjunctivae normal, anicteric sclerae Respiratory: normal respiratory effort, lungs clear to auscultation Cardiovascular: Rate/Rhythm: regular rate and regular rhythm Heart Sounds: + murmur (holosystolic) Extremities: normal capillary refill Gastrointestinal (Abdomen): normal bowel sounds, soft, nontender, no hepatosplenomegaly Skin: no rashes, warm and dry Results & Data Results & Data ([facility]) Vital Signs (Past 12 Hours) Vital Signs Temp Pulse Pulse Resp BP Pulse Ox 11/15/21 03:51 36.7 C 72 20 96/61 L 96 11/14/21 23:27 73 11/14/21 23:13 36.7 C 79 20 99/66 L 95 11/14/21 20:00 36.7 C 92 H 20 113/68 95 Resident Activity Tracking Resident Involvement: Resident Care Provided Care Provided: Adult [facility]
[2021-11-15] MEDS: CYANOCOBALAMIN (B-12) 500 MCG TABLET PO SCH (08:22)
[2021-11-15] MEDS ORDERED: FUROSEMIDE INJ 20 MG/2 ML VIAL IV ONE ×2 (09:40→12:14)
--- NOTE | 2021-11-15 12:21 | Cardiology Progress Note ---
Date of Service November 15, 2021 Assessment & Plan (1) Pulmonary edema: Plan: -improved with intravenous furosemide. -would continue with a daily dose of intravenous furosemide. -likely secondary to severe aortic stenosis. -watch volume status closely while receiving PRBC. (2) Aortic stenosis, severe: Plan: -clearly symptomatic. -patient would prefer a TAVR over an open procedure. (3) Cardiomyopathy: Plan: -LVEF now 35-40% with wall motion abnormalities. -needs a cardiac catheterization. (4) Elevated troponin: Plan: -secondary to demand ischemia verses CAD. -placed on a cardiac catheterization scheduled for tomorrow morning (Dr. Strickland' decision pending). (5) Severe anemia: Plan: -currently receiving PRBC. -workup per hospitalist team. Admission and Anticipated Discharge Date Admission Date: November 13, 2021 Subjective The patient is resting comfortably in bed today without chest pain or shortness of breath. We have discussed proceeding with a cardiac catheterization tomorrow morning. Physical Exam Physical Exam: In general this is a well-developed well-nourished white male in no acute distress. HEENT exam is negative. Neck is supple with delayed and prolonged carotid upstrokes. There is a transmitted murmur bilaterally. Jugular venous pressure is flat at 90. There is no thyromegaly. Cardiovascular exam reveals a regular rhythm with a 3/6 crescendo decrescendo systolic murmur heard loudest at the base. Lungs are clear without rales, rhonchi, or wheezes. Abdomen is soft and nontender without bruits. Extremities reveal intact radial artery and posterior tibial pulses bilaterally. There is no peripheral edema. Results & Data ([facility]) Vital Signs (Past 12 Hours) Vital Signs Temp Pulse Pulse Resp BP BP Pulse Ox 11/15/21 10:59 36.6 C 72 18 113/74 99 11/15/21 09:59 36.8 C 71 20 102/66 98 11/15/21 08:59 36.6 C 82 18 111/70 98 11/15/21 08:29 36.8 C 66 20 95/62 L 97 11/15/21 08:14 36.9 C 70 18 97/67 L 98 11/15/21 07:56 36.5 C 74 18 98/63 L 98 11/15/21 07:44 36.5 C 78 18 113/74 100 11/15/21 07:14 64 11/15/21 03:51 36.7 C 72 20 96/61 L 96 Laboratory Results CBC notes hemoglobin of 6.8, hematocrit 21.9, white count 12.56, a platelet count of [id number]. Electrolytes note a sodium of 136, potassium 3.7, chloride 103, bicarb 27, BUN 19, creatinine 0.97, and glucose of 107. 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 PG Care Time/CCT Total # of Minutes Spent Total Time Spent with Patient: Total time spent is greater than 50% in coordination of care (as documented) at patient's floor/unit and/or counseling patient: Coding Level of Care Code 51484 Subseq Hosp Care Lvl 3 Diagnoses Pulmonary edema J81.1 Aortic stenosis, severe I35.0 Cardiomyopathy I42.9 Elevated troponin R77.8 Severe anemia D64.9
[2021-11-15 13:24] LABS: Hematocrit (blood only) 27.9 % (42-52); Hemoglobin 8.8 g/dL (14.0-18.0)
[2021-11-15] MEDS ORDERED: LAVAGE SOLUTION 4000ML PO SCH (17:00)
[2021-11-16] MEDS: PANTOprazole 40 MG in DEXTROSE 5% 100 ML IV SCH ×5 (01:37→23:15)
[2021-11-16 05:54] LABS: Basophils # (auto) 0.06 K/uL (0-0.2); Basophils % (auto) 0.6 %; Eosinophils # (auto) 0.72 K/uL (0-0.5); Eosinophils % (auto) 7.2 %; Immature Granulocytes # (auto) 0.03 K/uL (0.00-0.02); Immature Granulocytes % (auto) 0.3 %; Lymphocytes # (auto) 0.89 K/uL (1.2-3.4); Lymphocytes % (auto) 8.8 %; Mean Corpuscular Volume 81.2 fL (80-100); Mean Platelet Volume 10.5 fL (7.4-10.4); Monocytes # (auto) 1.03 K/uL (0.11-0.59); Monocytes % (auto) 10.2 %; Neutrophils # (auto) 7.33 K/uL (1.4-6.5); Neutrophils % (auto) 72.9 %; Platelet Count 258 K/uL (130-400); RDW Coefficient of Variation 18.7 % (11.5-14.5); RDW Standard Deviation 54.7 fL (36.4-46.3); Red Blood Count 3.08 M/uL (4.7-6.1); White Blood Count 10.06 K/uL (4.8-10.8)
[2021-11-16 06:09] LABS: BUN Creatinine Ratio 17.6 (10-20); Calcium 8.9 mg/dl (8.5-10.1); Creatinine Clr Calc Pharmacy 66.6 ml/min; Est GFR (African American) 84.1 ml/min; Est GFR (Non-African American) 72.6 ml/min; Potassium 3.5 mmol/L (3.5-5.1)
--- NOTE | 2021-11-16 06:49 | Hospitalist Progress Note ---
Date of Service November 16, 2021 Assessment & Plan (1) Severe anemia: (2) Elevated troponin: (3) GI bleed: (4) Aortic stenosis, severe: (5) Duodenal ulcer: (6) Barretts esophagus: Plan: Gaetano is a 71 year old male w/ PmHx Hernandez's esophagus, duodenal ulcer, severe aortic stenosis who was admitted for low hemoglobin and elevated high sensitivity troponin. Severe Anemia: -Hgb on entry 4.9, transfused 2units PRBCs. -Repeat Hgb 6.8 11/15, transfused 1 unit PRBCs. -Hgb 8.0 this AM. -Iron low at 14, Ferritin low at 4.3, stool guaiac in ED positive. -EGD from 10/28/21 w/o evidence of bleed. -May have GI bleed w/ compounding iron deficiency which resulted in low hemoglobin. -GI consulted: -Could expedite colonoscopy from later next month to this week after catheterization. -Liquid diet for now. -Transfuse if hemoglobin <7. -AM CBC. Type 2 NSTEMI, POA secondary to severe anemia -Troponin I peaked at 28,185. -EKG w/ ST depressions in anterolateral and inferior leads, T wave inversion on lateral leads on initial EKG. -Repeat EKG 11/[address] segments. -Echo 11/14/21 w/ severe aortic stenosis, EF 35-40%, worsened since 10/14/20 echo w/ EF 55-60% but still w/ evidence of severe aortic stenosis. -Most likely due to poor forward flow at aorta in setting of 2 units PRBC transfusion. -Cardiology consulted: -No chest pain, ECG improved overnight - elevated trop and pulm edema due to inability to manage volume overload from PRBCs. -Avoid antiplatelet and anticoagulation with potential GI bleed. -Can continue with daily dose of Lasix. -Cath 11/16 moderate nonobstructive coronary artery disease. -Recommended further evaluation for AVR at tertiary history. Acute Pulmonary Edema: -CXR 11/14 cardiomegaly w/ evidence of CHF and pulmonary edema worsened compared to CXR 11/13. -Worsening oxygenation on 11/14 w/ improvement after 10mg and 20mg doses of IV Lasix. -Lasix 20mg IV qAM. -Same plan as above. Severe Aortic Stenosis: -Same plan as above. Alex Esophagus/Hx Duodenal Ulcer: -Continue Protonix gtt. DVT Prophylaxis: SCDs, holding chemical prophylaxis in setting of potential GI bleed. F/E/N/GI: Full liquid. Code status: DNR/DNI. Dispo: PCU Admission and Anticipated Discharge Date Admission Date: November 13, 2021 Supervising Physician Co-Signing Physician Notes Resident Physician Supervision Note: I independently interviewed and examined the patient and verified the enegl history and physical, reviewed labs and image studies and agree with resident Dr. Michaud findings and care plan. Subjective Patient feeling well today but anxious about the catheterization procedure. Denies shortness of breath, chest pain, fevers, chills. Review of Systems Constitutional: as per Subjective / HPI Physical Exam Constitutional: WD/WN, vitals as above Eyes: PERRL, conjunctivae normal, anicteric sclerae Respiratory: normal respiratory effort, lungs clear to auscultation Cardiovascular: Rate/Rhythm: regular rate and regular rhythm Heart Sounds: + murmur (holosystolic) Extremities: normal capillary refill Gastrointestinal (Abdomen): normal bowel sounds, soft, nontender, no hepatosplenomegaly Skin: no rashes, warm and dry Results & Data Results & Data ([facility]) Vital Signs (Past 12 Hours) Vital Signs Temp Pulse Pulse Resp BP BP Pulse Ox 11/16/21 01:51 36.5 C 66 19 110/76 98 11/15/21 23:00 36.6 C 66 20 109/70 98 11/15/21 20:04 36.9 C 73 19 106/67 94 11/15/21 20:03 84 Resident Activity Tracking Resident Involvement: Resident Care Provided Care Provided: Adult Hospital Medicine
[2021-11-16] MEDS ORDERED: MIDAZOLAM HCL 1 MG/ML 2ML VIAL ONE (10:17)
[2021-11-16] MEDS ORDERED: fentaNYL citrate 100 MCG/2 ML VIAL ONE (10:17)
[2021-11-16] MEDS ORDERED: niCARdipine HCL INJ 2.5 MG/ML 10 ML AMP ONE (10:17)
[2021-11-16] MEDS ORDERED: HEPARIN (PORCINE) 1000 UNIT/ML 10 ML (CATH LAB USE ONLY) ONE (10:17)
[2021-11-16] MEDS ORDERED: NITROGLYCERIN/D5W 100MCG/ML 20ML SYR ONE (10:18)
--- NOTE | 2021-11-16 11:11 | Pre Anesthesia Assessment ---
Date of Service November 16, 2021 Pre Sedation Assessment Vital Signs Temp Pulse Pulse Resp BP BP BP 11/16/21 09:44 75 18 132/86 11/16/21 07:47 69 11/16/21 07:40 98.4 F 81 18 105/69 11/16/21 01:51 97.7 F 66 19 110/76 11/15/21 23:00 97.9 F 66 20 109/70 11/15/21 20:04 98.4 F 73 19 106/67 11/15/21 20:03 84 11/15/21 15:53 98.4 F 77 18 109/71 11/15/21 14:52 79 11/15/21 11:40 97.9 F 72 18 100/63 Pulse Ox 11/16/21 09:44 99 11/16/21 07:47 11/16/21 07:40 95 11/16/21 01:51 98 11/15/21 23:00 98 11/15/21 20:04 94 11/15/21 20:03 11/15/21 15:53 97 11/15/21 14:52 11/15/21 11:40 99 Cardiovascular RRR, no murmur, no edema Respiratory normal respiratory effort, lungs clear to auscultation Pre-Sedation Airway Assessment Smoking Status: Never smoker Hx Sleep Apnea: No Short, Thick Neck: No Thyromental Distance: > or= 3.5 Finger Breadths Oral Cavity: + WNL Mallampati Class: II ASA: ASA2 NPO Status Date of Last Intake of Fluids: 11/15/21 Time of Last Intake of Fluids: 20:00 Date of Last Intake of Solid Food: 11/15/21 Time of Last Intake of Solid Foods: 18:00 Procedure Planning Contraindications for Sedation: none Current Medications Reviewed: Yes Notes The planned sedation has been discussed with the patient. Informed Consent was obtained. I have identified the patient, determined the appropriateness of sedation and have assessed the patient immediately prior to the procedure. All medicine(s) and interventions are by my order.
--- NOTE | 2021-11-16 12:26 | Post Anesthesia Assessment ---
Date of Service November 16, 2021 Post Sedation Assessment Vital Signs Temp Pulse Pulse Resp BP BP Pulse Ox 11/16/21 12:15 76 18 122/73 94 11/16/21 09:44 75 18 132/86 99 11/16/21 07:47 69 11/16/21 07:40 98.4 F 81 18 105/69 95 11/16/21 01:51 97.7 F 66 19 110/76 98 11/15/21 23:00 97.9 F 66 20 109/70 98 11/15/21 20:04 98.4 F 73 19 106/67 94 11/15/21 20:03 84 11/15/21 15:53 98.4 F 77 18 109/71 97 11/15/21 14:52 79 Recovery Score Activity: Moves 4 extremities Respiration: Deep Breath/Cough Circulation: +/-20% PreAnes Value Consciousness: Fully Awake Oxygen Saturation: > 92% On Room Air Post Anesthesia Score: 10 Discharge Sedation Level of Care: Fast Track Phase II Post Sedation Plan On clinical assessment, the patient appears to have tolerated the sedation without complications. Patient is recovering as anticipated. Patient will continue to be monitored by nursing and may be discharged when sed ation discharge criteria are met per below protocol. Upon Completions of procedure up to 15 minutes continue every 5 minute vital signs and the P.A.R. score; then discharge to a Phase I or Fast Track to Phase II per the following guidelines: * Discharge Patient to appropriate Phase II area if PAR is 8 or greater or return to pre- procedure baseline. The post - procedure orders will be as directed. * If PAR score is less than 8 or not return to pre-procedure baseline then patient will follow Phase I monitoring till PAR is reached for Phase II. The Phase I may be done in procedure room or may call to secure a Phase I area. * If naloxone or flumazenil are used for reversal, hold in Phase I for continued monitoring from when last reversal dose was given for a minimum of 60 minutes or longer pending the nurse and/or physician discretion of patient condition before discharge to Phase II. Please call the Sedation Physician to re-evaluate and complete post-note for discharge to Phase II area. Do NOT discharge from procedure sedation or Phase 1 until post- sedation evaluation note is complete by procedure /sedation MD Sedation Discharge Instructions to be given to the patient at discharge to home.
--- NOTE | 2021-11-16 12:39 | Cardiac Catheterization ---
[facility] Data: [employer] Cardiac Status Clinical evaluation leading to the procedure CAD Presenation: Non STEMI Anginal Classification: CCS IV Diagnostic Physicians Name: Rafael Strickland MD Closure Device Recommendations: Valve Replacement Cardiac Cath Procedure Full Procedure Date November 16, 2021 Pre-Procedure Diagnosis Pre-Procedure Diagnosis: Non STEMI and Valvular Disease AUC Score AUC Score: 7 Post-Procedure Diagnosis Post-Procedure Diagnosis: Moderate CAD Procedure(s) Performed Procedure(s) Performed: Coronary Angiography Stitching Department Supervisor Rafael Strickland MD Foam Gun Operator(s) Fbi Profiler Estimated Blood Loss Estimated Blood Loss: 5 Medication(s) Medication(s): Heparin, Lidocaine 1%, Nicardipine, Nitroglycerin and Versed Summary of Findings Indication: Severe aortic stenosis, LV dysfunction, NSTEMI Access: 6 Fr right radial artery Catheters: [place] Findings: LM -Short, normal caliber, no significant disease LAD -medium caliber, 30% mid segment disease at takeoff of D3, 30% distal disease, distal vessel wraps around apex. Gives off 3 medium caliber diagonals. D2 40% proximal. D3 50% ostial, mid disease. Circumflex -large caliber, diffuse mid segment disease up to 40%. Distal vessel with 60 to 70% stenosis prior to medium OM 3. RCA -dominant, medium caliber, diffuse mid segment disease up to 40%. Distal vessel without significant disease. Arterial Closure: TR band Summary: 1. Moderate nonobstructive coronary artery disease -30% mid LAD. D2 40% proximal. D3 50% ostial/mid. 40% diffuse mid circumflex, 60 to 70% distal circumflex 40% diffuse mid RCA 2. Severe aortic stenosis by echo Recommendations: Further evaluation for AVR at tertiary center. Medical management of nonobstructive CAD. Hemodynamics Rest Ao:: 97/64/80 Final Ao: 115/61/84 LV: -- Recommendations Recommendations: Valve Replacement Specimens Specimens: None Radiation Exposure (mGy) 533 Contrast (mls) 25 Anesthesia moderate [id number] Procedural Complication(s) None Disposition PCU I attest to the content of the Intraoperative Record and any orders documented therein. Any exceptions are noted below. [facility] Card Cath Procedure Codes Cardiac Catheterization Procedure 1: Cardiovascular Cath Procedures: 57189 Coronaries Moderate Sedation Procedure 1: Sedation/Anesthesia: 02080 Mod Sedation by the same physician;Init15 Min Child Age 5 & Up PG Care Time/CCT Total # of Minutes Spent Total Time Spent with Patient: Total time spent is greater than 50% in coordination of care (as documented) at patient's floor/unit and/or counseling patient:
[2021-11-16] MEDS ORDERED: SODIUM CHLORIDE 0.9% 1000ML 1,000 ML IV SCH (12:45)
[2021-11-16] MEDS: CYANOCOBALAMIN (B-12) 500 MCG TABLET PO SCH (13:08)
[2021-11-16] MEDS: FUROSEMIDE INJ 20 MG/2 ML VIAL IV SCH (13:14)
[2021-11-17] MEDS: PANTOprazole 40 MG in DEXTROSE 5% 100 ML IV SCH ×2 (04:30→09:22)
[2021-11-17 06:14] LABS: Basophils # (auto) 0.03 K/uL (0-0.2); Basophils % (auto) 0.3 %; Eosinophils # (auto) 0.68 K/uL (0-0.5); Eosinophils % (auto) 7.4 %; Hematocrit (blood only) 25.9 % (42-52); Immature Granulocytes # (auto) 0.03 K/uL (0.00-0.02); Immature Granulocytes % (auto) 0.3 %; Lymphocytes # (auto) 0.57 K/uL (1.2-3.4); Lymphocytes % (auto) 6.2 %; Mean Corpuscular Hemoglobin 25.2 pg (25-34); Mean Corpuscular Hgb Conc 30.9 g/dL (32-36); Mean Corpuscular Volume 81.4 fL (80-100); Mean Platelet Volume 10.3 fL (7.4-10.4); Monocytes # (auto) 1.21 K/uL (0.11-0.59); Monocytes % (auto) 13.2 %; Neutrophils # (auto) 6.65 K/uL (1.4-6.5); Neutrophils % (auto) 72.6 %; Platelet Count 284 K/uL (130-400); RDW Coefficient of Variation 19.3 % (11.5-14.5); RDW Standard Deviation 57.3 fL (36.4-46.3); Red Blood Count 3.18 M/uL (4.7-6.1); White Blood Count 9.17 K/uL (4.8-10.8)
[2021-11-17 06:37] LABS: BUN Creatinine Ratio 16.3 (10-20); Calcium 9.1 mg/dl (8.5-10.1); Creatinine Clr Calc Pharmacy 65.3 ml/min; Est GFR (African American) 82.2 ml/min; Est GFR (Non-African American) 70.9 ml/min; Potassium 3.6 mmol/L (3.5-5.1)
--- NOTE | 2021-11-17 08:11 | Hospitalist Progress Note ---
Date of Service November 17, 2021 Assessment & Plan (1) Severe anemia: (2) Elevated troponin: (3) GI bleed: (4) Aortic stenosis, severe: (5) Duodenal ulcer: (6) Barretts esophagus: Plan: Gaetano is a 71 year old male w/ PmHx Hernandez's esophagus, duodenal ulcer, severe aortic stenosis who was admitted for low hemoglobin and elevated high sensitivity troponin. Severe Anemia: -Hgb on entry 4.9, transfused 2units PRBCs. -Repeat Hgb 6.8 11/15, transfused 1 unit PRBCs. -Hgb 8.0 this AM. -Iron low at 14, Ferritin low at 4.3, stool guaiac in ED positive. -EGD from 10/28/21 w/o evidence of bleed. -May have GI bleed w/ compounding iron deficiency which resulted in low hemoglobin. -GI consulted: -Could expedite colonoscopy from later next month to this week after catheterization. -Liquid diet for now. -Transfuse if hemoglobin <7. -AM CBC. Type 2 NSTEMI, POA secondary to severe anemia -Troponin I peaked at 28,185. -EKG w/ ST depressions in anterolateral and inferior leads, T wave inversion on lateral leads on initial EKG. -Repeat EKG 11/[address] segments. -Echo 11/14/21 w/ severe aortic stenosis, EF 35-40%, worsened since 10/14/20 echo w/ EF 55-60% but still w/ evidence of severe aortic stenosis. -Most likely due to poor forward flow at aorta in setting of 2 units PRBC transfusion. -Cardiology consulted: -No chest pain, ECG improved overnight - elevated trop and pulm edema due to inability to manage volume overload from PRBCs. -Avoid antiplatelet and anticoagulation with potential GI bleed. -Can continue with daily dose of Lasix. -Cath 11/16 moderate nonobstructive coronary artery disease. -Recommended further evaluation for AVR at tertiary history. Acute Pulmonary Edema: -CXR 11/14 cardiomegaly w/ evidence of CHF and pulmonary edema worsened compared to CXR 11/13. -Worsening oxygenation on 11/14 w/ improvement after 10mg and 20mg doses of IV Lasix. -Lasix 20mg IV qAM. -Same plan as above. Severe Aortic Stenosis: -Same plan as above. Alex Esophagus/Hx Duodenal Ulcer: -Continue Protonix gtt. DVT Prophylaxis: SCDs, holding chemical prophylaxis in setting of potential GI bleed. F/E/N/GI: Full liquid. Code status: DNR/DNI. Dispo: PCU Admission and Anticipated Discharge Date Admission Date: November 13, 2021 Review of Systems Constitutional: as per Subjective / HPI Physical Exam Constitutional: WD/WN, vitals as above Eyes: PERRL, conjunctivae normal, anicteric sclerae Respiratory: normal respiratory effort, lungs clear to auscultation Cardiovascular: RRR, no murmur, no edema Gastrointestinal (Abdomen): normal bowel sounds, soft, nontender, no hepatosplenomegaly Skin: no rashes, warm and dry Results & Data Results & Data ([facility]) Vital Signs (Past 12 Hours) Vital Signs Temp Pulse Pulse Resp BP Pulse Ox 11/17/21 03:45 36.5 C 76 16 119/77 97 11/16/21 23:05 71 11/16/21 22:41 36.8 C 69 19 109/65 98
[2021-11-17] MEDS: FUROSEMIDE INJ 20 MG/2 ML VIAL IV SCH (08:43)
[2021-11-17] MEDS: CYANOCOBALAMIN (B-12) 500 MCG TABLET PO SCH (08:43)
--- NOTE | 2021-11-17 09:44 | Cardiology Progress Note ---
Date of Service November 17, 2021 Assessment & Plan (1) Pulmonary edema: Plan: -continues to improve with intravenous furosemide -likely secondary to severe aortic stenosis. (2) Aortic stenosis, severe: Plan: -clearly symptomatic. -patient would prefer a TAVR over an open procedure. -I will speak with his roller skate assembler, Dr. Love, at the [facility]. (3) CAD (coronary artery disease): Plan: -30% mid and distal LAD, 40% mid LCx, 60% distal LCx, and a 40% mid RCA. -medical management. (4) Cardiomyopathy: Plan: -LVEF now 35-40% with wall motion abnormalities. -cardiac catheterization reveals nonobstructive CAD. (5) Elevated troponin: Plan: -secondary to demand ischemia. (6) Severe anemia: Plan: -workup per hospitalist team. Admission and Anticipated Discharge Date Admission Date: November 13, 2021 Subjective The patient is resting comfortably in the bedside chair without complaints chest pain or dyspnea. Physical Exam Physical Exam: In general this is a well-developed well-nourished white male in no acute distress. HEENT exam is negative. Neck is supple with delayed and prolonged carotid upstrokes. There is a transmitted murmur bilaterally. Jugular venous pressure is flat at 90. There is no thyromegaly. Cardiova scular exam reveals a regular rhythm with a 3/6 crescendo decrescendo systolic murmur heard loudest at the base. Lungs are clear without rales, rhonchi, or wheezes. Abdomen is soft and nontender without bruits. Extremities reveal intact radial artery and posterior tibial pulses bilaterally. There is no peripheral edema. Results & Data ([facility]) Vital Signs (Past 12 Hours) Vital Signs Temp Pulse Pulse Resp BP Pulse Ox 11/17/21 08:35 36.7 C 75 18 117/71 98 11/17/21 03:45 36.5 C 76 16 119/77 97 11/16/21 23:05 71 11/16/21 22:41 36.8 C 69 19 109/65 98 PG Care Time/CCT Total # of Minutes Spent Total Time Spent with Patient: Total time spent is greater than 50% in coordination of care (as documented) at patient's floor/unit and/or counseling patient: Coding Level of Care Code 63519 Subseq Hosp Care Lvl 3 Diagnoses Pulmonary edema J81.1 Aortic stenosis, severe I35.0 Cardiomyopathy I42.9 Elevated troponin R77.8 Severe anemia D64.9 CAD (coronary artery disease) I25.10
--- NOTE | 2021-11-17 12:40 | Discharge Summary ---
Date of Service November 17, 2021 Admission HPI Per Admitting Provider Mr. iVnson is a 71-year-old male with a past medical history of Hernandez's esophagus and severe aortic stenosis who presents today with shortness of breath on exertion over the past several days. Patient states he been feeling well recently until the last few weeks when he had become more short of breath with activity he could previously sustain easily. It has been so bad over the past few days that he is winded with tasks like walking to get his mail or cleaning his home. He has come to our ED today for further evaluation. He does have a history of gastritis and a non-bleeding duodenal ulcer diagnosed in September 2020. At that time, he was placed on Protonix to be continued indefinitely. He was also previously taking iron pills, however discontinued these in September, as they had made his stools very dark and he felt he would be unable to assess for blood. He was placed iron pills with daily stakes or iron supplementation. No other symptoms, was previously feeling very well. Does have a history of severe aortic stenosis, when he was admitted for similar presentation as above 1 year ago, cardiology consult was placed and at that time, it was felt he should be considered for valve replacement, however GI work-up had taken priority. Recommended he follow-up with cardiology as outpatient for his, patient states he has not done this yet. In ED, he is mildly tachycardic with heart rate in 90s, otherwise vital signs within normal meds, stable. Labs significant for Hgb 4.9, microcytic. BUN 30, creatinine 1.31, up from baseline of 0.80.9. Glucose 201. WBC 13.55. Electrolytes, LFTs WNL. CXR with cardiomegaly with mild interstitial pulmonary edema. Protonix drip with bolus and 250 cc NS was administered in ED, hospitalist service consulted for further evaluation and admission. Admission Exam Per Admitting Provider Constitutional: No fever/chills, weakness, fatigue, myalgias, anorexia, night sweats Eyes: No diplopia, no worsening or blurred vision ENT: normal hearing, no trouble swallowing Respiratory: STEPHEN, sometimes with rest and minimal activity Cardiovascular: No chest pain, tightness or palpitations Abdomen: No pain, nausea, vomiting, diarrhea or constipation : Denies dysuria, hematuria, increased urgency/frequency, urinary retention Musculoskeletal: No joint pain, calf pain, swelling Neurologic: No weakness, numbness/tingling, or balance problems Psychiatric: No anxiety or depression Skin: No rash or itch Principal Diagnosis Anemia, Aortic Stenosis Discharge Exam Constitutional WD/WN, vitals as above Eyes PERRL, conjunctivae normal, anicteric sclerae Respiratory normal respiratory effort, lungs clear to auscultation Cardiovascular Rate/Rhythm: regular rate and regular rhythm Heart Sounds: + murmur (holosystolic) Extremities: normal capillary refill Gastrointestinal (Abdomen) normal bowel sounds, soft, nontender, no hepatosplenomegaly Skin no rashes, warm and dry Discharge Data Allergies Allergy/AdvReac Type Severity Reaction Status Date / Time amoxicillin Allergy Mild Gastrointestinal Verified 11/13/21 18:46 Upset doxycycline Allergy Mild Nausea Verified 11/13/21 18:46 Consultations 11/13/21 18:48 ED Decision to Admit Stat 11/13/21 21:23 Consult Cardiology Routine Consult Gastroenterology Routine Consult [facility] stack supervisor Routine Procedures Performed Operation Date: 11/16/21 11:00 Actual Procedures p Cath, Coronaries ONLY (no LV) - Angus Strickland MD s Cineradiography w/Routine Exam - Angus Strickland MD Ordered Studies 11/16/21 06:37 CL Cath Imgs for PACS use only Routine Hospital Course (1) Severe anemia: (2) Elevated troponin: (3) GI bleed: (4) Aortic stenosis, severe: (5) Duodenal ulcer: (6) Barretts esophagus: Gaetano is a 71 year old male w/ PmHx Hernandez's esophagus, duodenal ulcer, severe aortic stenosis who was admitted for low hemoglobin and elevated high sensitivity troponin. Severe Anemia: -Hgb on entry 4.9, transfused 2units PRBCs. -Repeat Hgb 6.8 11/15, transfused 1 unit PRBCs. -Received IV Venofer while inpatient. -Hgb 8.0 stable on day of discharge. -Iron low at 14, Ferritin low at 4.3, stool guaiac in ED positive. -EGD from 10/28/21 w/o evidence of bleed. -Patient to follow up with GI at [facility] outpatient for Colonoscopy. -Continued home protonix daily. Type 2 NSTEMI, POA secondary to severe anemia Cardiomyopathy - Non-ischemic -Troponin I peaked at 28,185. -EKG w/ ST depressions in anterolateral and inferior leads, T wave inversion on lateral leads on initial EKG. -Repeat EKG 11/[address] segments. -Echo 11/14/21 w/ severe aortic stenosis, EF 35-40%, worsened since 10/14/20 echo w/ EF 55-60% but still w/ evidence of severe aortic stenosis. -Cardiology consulted: -No chest pain, ECG improved overnight - elevated trop and pulm edema due to fluid overload from PRBCs. -Avoid antiplatelet and anticoagulation with potential GI bleed. -Can continue with daily dose of Lasix. -Cath 11/16 moderate nonobstructive coronary artery disease. -Recommended further evaluation for AVR at tertiary center. Acute Pulmonary Edema: -CXR 11/14 cardiomegaly w/ evidence of CHF and pulmonary edema worsened compared to CXR 11/13. -Worsening oxygenation on 11/14 w/ improvement after 10mg and 20mg doses of IV Lasix. -Same plan as above. Severe Aortic Stenosis: -Same plan as above. Alex Esophagus/Hx Duodenal Ulcer: -Continued patient's protonix daily home med. Total Time Total Time Spent Total Time Spent (In Minutes): Pleas see attending attestation. Discharge Plan Discharge Items Patient Disposition: Home - Self-Care Reason For Visit: SYMPTOMATIC ANEMIA Discharge Diagnosis: Anemia Activity: Per Instructions section Non-emergency contact: Primary Care Provider, Shadow Graph Weight Operator and Railway Switch Operator Call non-emergency contact if: your symptoms worsen, your pain is worsening and your temperature is above 101 Follow-up/Referrals: Annabelle Roque MD [Primary Care Provider] - Diet: Regular Addtl Attending Provider Instructions: A discharge summary will be sent to your primary care physician to ensure continuity of care. You came into the hospital for increased shortness of breath over the past week. Upon arrival you were found to have a low hemoglobin to 4.9. You were transfused 2 units of blood and your hemoglobin came up. Your hemoglobin came back down to 6.8 2 days after you were given blood and so you were transfused one more unit of blood and given IV iron. On repeat later that day your hemoglobin came up to 8.0. The next morning your hemoglobin stayed stable at 8.0. Your anemia may be due to a GI bleed since you were found to have evidence of blood in the stool on arrival to the ED. As a result you were given a proton pump inhibitor (Protonix) to help decrease acid irritation to the gut. Please follow up with your novelty chain maker on follow up appointment and colonoscopy. While in the hospital you were also evaluated for an abnormal ECG that indicated decreased perfusion to the heart. You developed worsening shortness of breath after your echocardiogram that improved with administration of Lasix. Given your past history of aortic valve stenosis it was thought that you had poor forward flow and were fluid overloaded from your blood transfusions. You also had a catheterization of the heart which showed moderate coronary artery stenosis not requiring stents at the current time. You discussed possible options for valve replacement with the student development advisor and you wanted to opt for a transcatheter aortic valve replacement (TAVR). Dr. Vail will talk with your student development advisor at the [facility] so please follow up with them for further treatment. Please obtain a repeat complete blood count from your primary care doctor or novelty chain maker to check on your hemoglobin, ideally within the next few days to week. Follow-up: * You should be seen by your primary physician within the next week. * Please follow up with your student development advisor within the next week. * Please follow up with your novelty chain maker within the next week. Medications: Your medication list has been reviewed and reconciled upon discharge to ensure accuracy and continuity of care. An updated list of all your medications is included with your hospital discharge paperwork. Please review this list closely, and make note of any changes. * Please be sure to continue your pantoprazole (Protonix) orally 40mg daily to ensure good acid suppression. Take your medications as instructed; do not skip a dose of your medicines. Make sure all of your doctors know every medicine you are taking (including [id number] medicines, vitamins, and supplements). let your primary care provider know before taking any new medicines because some of these may interact with your current medications, or may make your symptoms worse. CONTACT YOUR PRIMARY CARE PROVIDER if you experience any of the following: * Fevers or shaking chills * Shortness of breath not relieved by inhalers, fainting * Sudden abdominal distension not relieved by catheterization. * Difficulty following your treatment plan, or difficulty taking medications CALL 911 OR GO TO THE EMERGENCY DEPARTMENT if you experience any of the following: * Sudden, severe abdominal pain or nausea/vomiting * Severe chest pain, or chest pain that radiates (moves) to your jaw or arm * Sudden, severe shortness of breath or difficulty breathing It was was our pleasure taking care of you here at [facility] . Thank you for allowing us to participate in your care. Pending Studies at Discharge: No Stand-Alone Forms: My [facility], Smoking Cessation Medications and DC Order Prescriptions: Continued ibuprofen 200 mg Tablet 200 mg PO Q6H PRN (Reason: Pain) RF: 0 pantoprazole 40 mg tablet,delayed release (DR/EC) 40 mg PO DAILY RF: 0 Discharge Orders: Discharge Order (Routine); Ordered 11/17/21 Ordered By: Andrae Michaud Admission Data Admit Date/Time: 11/13/21 18:23 Attending Provider: Connie Griffith Admit Provider: Presley Broderick Primary Care Provider: Annabelle Roque Other Providers: Presley Broderick ; Rylie Sharp ; Breezy Resendiz ; Jose Vela ; Aj Vail ; Isai Doe ; Damian Parson ; Jah Avilez Jr ; Mendoza Vyas ; Zeina Howard ; Araseli Quiroz ; Angus Strickland ; Rafael Sam ; Walker Das ; Ale Rueda ; Nisha Razo ; Manny Mcleod ; Joe Pichardo ; Truman Parsons ; Connor Greco ; Isai Cartagena V. Other Interventions: Discharge Summary Assessment (RN) Last Done: 11/17/21 12:49 Supervising Physician Co-Signing Physician Notes Resident Physician Supervision Note: I independently interviewed and examined the patient and verified the engel history and physical, reviewed labs and image studies and agree with resident Dr. Michaud findings and care plan. Resident Activity Tracking Resident Involvement: Resident Care Provided Care Provided: Adult Hospital Medicine
== END 2021-11-17 14:44 | disposition home or self-care (01) | DRG 280 ==
LOC: ED 17:21 → 2S 18:23 → SUATTDRO 18:23 → 2S 20:46
PROC: CLB.CCO (2021-11-16 11:00)